=== PATIENT | male | born 1940 | race Caucasian/White ===

== ENCOUNTER 2017-09-25 13:16 | Inpatient (IN) ==
[2017-09-25] MEDS ORDERED: methylPREDNISolone 125 MG/2 ML VIAL IVP ONE (13:25)
[2017-09-25] MEDS ORDERED: Ipratropium/Albuterol Neb 3 ML IH ONE (13:25)
--- NOTE | 2017-09-25 13:32 | Emergency Department Note ---
Disposition Clinical Impression: Acute exacerbation of chronic obstructive airways disease Disposition: Admitted As Inpatient Condition: Fair Referrals: Ronnie Davidson,Rich Morales [Primary Care Provider] - Forms: ED Satisfaction Letter Time of Disposition: 15:01 SOB HPI - General Chief Complaint: ED Shortness of Breath/Dyspnea Stated Complaint: sob/pain in ribs w/cough and inspiration Time Seen by Provider: 09/25/17 13:25 Nursing Notes Reviewed: Yes Vital Signs Reviewed: Yes - History of Present Illness Patient is a 77-year-old male who presents to [facility] ED with a chief complaint of difficulty breathing. States his symptoms have been worsening over the last several days. States he does have a history of COPD on 3 L home oxygen. He usually does 3-4 breathing treatments daily. States he feels like he is getting pleurisy again since his discomfort is worse with deep breaths. Denies any history of blood clots or recent surgery. States he did have a recent lung biopsy done by Dr. Trotter several months ago. Denies any nausea, vomiting, fever. Has had some chills. No chest pain, abdominal pain, problems with urination or bowel movements. Pt Subjective Complaint: shortness of breath, pain with inspiration Onset (ago): day(s) Context: recent illness Severity: moderate Consistency/Duration: gradually worsening Improves with: nothing Worsens with: nothing Known history of: COPD Associated symptoms: Reports: cough, wheezing, sputum production. Denies: chest pain, fever Treatment prior to arrival: none Cough present: Yes Cough Description: Involuntary Cough Frequency: Intermittent Sputum production: Yes Sputum Amount: Moderate Sputum Color: Yellow - Related Data Home oxygen amount: 3 liters Home Medications Medication Instructions Recorded Confirmed Aspirin Enteric Coated [Aspirin EC] 81 mg PO DAILY 11/27/16 07/06/17 Glimepiride [Amaryl] 4 mg PO DAILY 11/27/16 07/06/17 Losartan [Cozaar] 25 mg PO DAILY 11/27/16 07/06/17 Metoprolol [Lopressor] 12.5 mg PO BID 11/27/16 07/06/17 Omeprazole [PriLOSEC] 40 mg PO DAILY 11/27/16 07/06/17 Pioglitazone [Actos] 30 mg PO 0800 11/27/16 07/06/17 Potassium Gluconate [Potassium] 99 mg PO DAILY 11/27/16 07/06/17 Tamsulosin [Flomax] 0.4 mg PO DAILY 11/27/16 07/06/17 metFORMIN [Glucophage] 1,000 mg PO BIDWM 11/27/16 07/06/17 Albuterol Neb [Proventil Neb] 2.5 mg IH Q4HR PRN 07/06/17 07/06/17 Albuterol Sulfate [Proair Hfa] 2 puff IH Q4H PRN 07/06/17 07/06/17 Ferrous Sulfate [Iron] 325 mg PO DAILY 07/06/17 07/06/17 Ipratropium Neb [Atrovent Neb] 0.5 mg IH Q8H PRN 07/06/17 07/06/17 Magnesium 250 mg PO DAILY 07/06/17 07/06/17 Tiotropium Br/Olodaterol HCl 2 puff IH DAILY 07/06/17 07/06/17 [Stiolto Respimat Inhal [place]] Allergies Allergy/AdvReac Type Severity Reaction Status Date / Time No Known Allergies Allergy Verified 09/25/17 13:26 All systems ED: reviewed and negative except as stated. Past Medical History - Past Medical History Attestation: Yes The following information was validated with the patient. Source: patient Medical history: Reports: COPD, diabetes, GERD, hypertension, other Surgical history: Reports: herniorrhaphy, orthopedic, other Psychiatric history: Reports: other - Social History Smoking Status: Current every day smoker Smokeless Tobacco Status: No Alcohol use: Reports: none Drug use: Reports: none Physical Exam - General Limitations: no limitations General appearance: alert, in no apparent distress - Head Head exam: atraumatic, normocephalic, normal inspection - Eye Eye exam: Present: EOMI - ENT ENT exam: normal exam, normal oropharynx, mucous membranes moist - Neck Neck exam: Present: normal inspection, full ROM, trachea midline - Chest Chest inspection: Present: normal inspection, symmetric chest wall rise - Respiratory Respiratory exam: Present: wheezes (diffusely b/l) - Cardiovascular Cardiovascular exam: Present: regular rate, normal rhythm, normal heart sounds - Abdominal Exam Abdominal exam: Present: soft, Non-Tender. Absent: tenderness, distention, guarding, rebound, rigidity - Extremities Exam Extremities exam: Present: normal inspection, full ROM. Absent: tenderness, pedal edema - Back Exam Back exam: Present: normal inspection, full ROM. Absent: tenderness - Neurological Exam Neurological exam: Present: alert, oriented X3 - Psychiatric Psychiatric exam: Present: normal affect, normal mood - Skin Skin exam: Present: warm, dry, intact, normal color Course Course Narrative: Patient seen and examined. Difficulty breathing. History of COPD. Upon examination, he is diffusely wheezy. Triple DuoNeb treatment along with Solu- Medrol ordered. Cardiopulmonary workup initiated. - Reevaluation(s) Reevaluation #1: Labwork does show a mildly elevated potassium of 5.2. No EKG related changes. chest x-ray unremarkable. Patient still very wheezy. I discussed results with family and the patient and they would like him to be admitted. He has had a lot of trouble getting around at home. We will admit for COPD exacerbation. I discussed with hospitalist Dr. Coleman who has accepted patient for admission. Time: 15:00 Vital Signs O2 Sat by Pulse Oximetry 98 09/25/17 13:27 Temperature 98.5 F 09/25/17 13:28 Pulse Rate 109 09/25/17 13:30 Respiratory Rate 20 09/25/17 13:46 Blood Pressure 146/77 09/25/17 13:30 O2 Sat by Pulse Oximetry 98 09/25/17 13:46 Oxygen Delivery Oxygen Delivery Nasal Cannula Shortness of Breath/Dyspnea - Medical Records Medical records reviewed: Yes I reviewed the patient's medical records. - Lab Data Lab results reviewed: Yes I reviewed the patient's lab results. Result diagrams: 09/25/17 13:40 09/25/17 13:40 Lab Results 09/25/17 09/25/17 09/25/17 Range/Units 13:40 13:40 13:40 WBC 7.0 (4.3-11.1) K/mcL RBC 4.45 (4.19-5.50) M/mcL Hgb 12.8 L (12.9-16.9) g/dL Hct 41.0 (37.5-50.1) % MCV 92.1 (83.0-100.0) fL MCH 28.8 (28.0-33.3) pg MCHC 31.2 L (31.6-35.5) g/dL RDW 13.6 (11.5-14.5) % Plt Count 299 (140-400) K/mcL MPV 9.5 (9.4-12.4) fL Immature Gran % 0.4 (0-4) % Seg Neutrophils % 73.3 % Lymphocytes % 14.6 % Monocytes % 8.0 % Eosinophils % 3.0 % Basophils % 0.7 % Neutrophils # 5.2 (1.6-8.9) K/mcL Lymphocytes # 1.0 (0.6-4.6) K/mcL Monocytes # 0.6 (0.0-1.3) K/mcL Eosinophils # 0.2 (0.0-0.6) K/mcL Basophils # 0.1 (0.0-0.2) K/mcL D-Dimer 336 (0-500) ng/mLFEU Sodium 139 (136-145) mEq/L Potassium 5.2 H (3.5-5.1) mEq/L Chloride 101 (98-107) mEq/L Carbon Dioxide 34 H (23-29) mEq/L BUN 13 (8-23) mg/dL Creatinine 0.64 L (0.70-1.30) mg/dL Est GFR ( Amer) > 60 (> 60) Est GFR (Non-Af Amer) > 60 (> 60) BUN/Creatinine Ratio 20 (6-26) Glucose 139 H (70-105) mg/dL Calculated Osmolality 290 (280-300) Lactic Acid (0.5-2.2) mmol/L Calcium 9.5 (8.6-10.3) mg/dL Troponin I < 0.03 (< 0.04) ng/mL B-Natriuretic Peptide (Less than 100) pg/mL 09/25/17 09/25/17 Range/Units 13:40 13:40 WBC (4.3-11.1) K/mcL RBC (4.19-5.50) M/mcL Hgb (12.9-16.9) g/dL Hct (37.5-50.1) % MCV (83.0-100.0) fL MCH (28.0-33.3) pg MCHC (31.6-35.5) g/dL RDW (11.5-14.5) % Plt Count (140-400) K/mcL MPV (9.4-12.4) fL Immature Gran % (0-4) % Seg Neutrophils % % Lymphocytes % % Monocytes % % Eosinophils % % Basophils % % Neutrophils # (1.6-8.9) K/mcL Lymphocytes # (0.6-4.6) K/mcL Monocytes # (0.0-1.3) K/mcL Eosinophils # (0.0-0.6) K/mcL Basophils # (0.0-0.2) K/mcL D-Dimer (0-500) ng/mLFEU Sodium (136-145) mEq/L Potassium (3.5-5.1) mEq/L Chloride (98-107) mEq/L Carbon Dioxide (23-29) mEq/L BUN (8-23) mg/dL Creatinine (0.70-1.30) mg/dL Est GFR ( Amer) (> 60) Est GFR (Non-Af Amer) (> 60) BUN/Creatinine Ratio (6-26) Glucose (70-105) mg/dL Calculated Osmolality (280-300) Lactic Acid 0.8 (0.5-2.2) mmol/L Calcium (8.6-10.3) mg/dL Troponin I (< 0.04) ng/mL B-Natriuretic Peptide 51 (Less than 100) pg/mL - Radiology Data Radiology results reviewed: Yes I reviewed the patient's radiology results. Chest X-Ray 09/25/17 13:25 IMPRESSION: 1. No acute findings in the chest. 2. No definite visualization of the hypermetabolic left upper lobe nodule seen on PET. 3. Emphysema. D/ / Micha Estrada MD / Micha Estrada MD Interpreting Provider: Micha Estrada MD - EKG Data EKG attestation: Yes I reviewed and interpreted this EKG. EKG results narrative: EKG done at 1351 shows sinus tachycardia with a rate of [address] elevation or depression. Normal axis.
--- NOTE | 2017-09-25 13:33 | Emergency Department Note ---
Disposition Clinical Impression: Acute exacerbation of chronic obstructive airways disease Disposition: Admitted As Inpatient Condition: Fair General Adult HPI - General Chief complaint: ED Shortness of Breath/Dyspnea Stated complaint: sob/pain in ribs w/cough and inspiration Time Seen by Provider: 09/25/17 13:25 Source: patient, EMS Limitations: no limitations Nursing Notes Reviewed: Yes Vital Signs Reviewed: Yes - History of Present Illness Pain Scale: 8 - Related Data Home Medications Medication Instructions Recorded Confirmed Aspirin Enteric Coated [Aspirin EC] 81 mg PO DAILY 11/27/16 09/25/17 Glimepiride [Amaryl] 4 mg PO DAILY 11/27/16 09/25/17 Losartan [Cozaar] 25 mg PO DAILY 11/27/16 09/25/17 Metoprolol [Lopressor] 12.5 mg PO BID 11/27/16 09/25/17 Omeprazole [PriLOSEC] 40 mg PO DAILY 11/27/16 09/25/17 Tamsulosin [Flomax] 0.4 mg PO DAILY 11/27/16 09/25/17 metFORMIN [Glucophage] 1,000 mg PO BIDWM 11/27/16 09/25/17 Albuterol Neb [Proventil Neb] 2.5 mg IH Q4HR PRN 07/06/17 09/25/17 Albuterol Sulfate [Proair Hfa] 2 puff IH Q4H PRN 07/06/17 09/25/17 Ipratropium Neb [Atrovent Neb] 0.5 mg IH Q8H PRN 07/06/17 09/25/17 Magnesium 250 mg PO DAILY 07/06/17 09/25/17 Tiotropium Br/Olodaterol HCl 2 puff IH DAILY 07/06/17 09/25/17 [Stiolto Respimat Inhal [place]] Pioglitazone HCl [Actos] 45 mg PO DAILY 09/25/17 09/25/17 PredniSONE [Betzaida] 5 mg PO Q48H 09/25/17 09/25/17 Allergies Allergy/AdvReac Type Severity Reaction Status Date / Time No Known Allergies Allergy Verified 09/25/17 15:34 Past Medical History - Past Medical History Medical history: Reports: COPD, diabetes, GERD, hypertension, other Surgical history: Reports: herniorrhaphy, orthopedic, other Psychiatric history: Reports: other - Social History Smoking Status: Current every day smoker Smokeless Tobacco Status: No Alcohol use: Reports: none Drug use: Reports: none Physical Exam - General Limitations: no limitations General appearance: alert Course Vital Signs O2 Sat by Pulse Oximetry 98 09/25/17 13:27 Temperature 98.5 F 09/25/17 13:28 Pulse Rate 109 09/25/17 13:30 Respiratory Rate 20 09/25/17 13:46 Blood Pressure 146/77 09/25/17 13:30 O2 Sat by Pulse Oximetry 98 09/25/17 13:46 Oxygen Delivery Oxygen Delivery Nasal Cannula Medical Decision Making - [facility] Narrative Medical decision making narrative: Chest X-Ray 09/25/17 13:25 IMPRESSION: 1. No acute findings in the chest. 2. No definite visualization of the hypermetabolic left upper lobe nodule seen on PET. 3. Emphysema. D/ / Micha Estrada MD / Micha Estrada MD Interpreting Provider: Micha Estrada MD 1430 hrs.: Patient is doing better. at like him admitted to the hospital. We will bring him into the hospital for acute exacerbation of COPD and bronchitis. - Lab Data Result diagrams: 09/25/17 13:40 09/25/17 13:40 Lab Results 09/25/17 09/25/17 09/25/17 Range/Units 13:40 13:40 13:40 WBC 7.0 (4.3-11.1) K/mcL RBC 4.45 (4.19-5.50) M/mcL Hgb 12.8 L (12.9-16.9) g/dL Hct 41.0 (37.5-50.1) % MCV 92.1 (83.0-100.0) fL MCH 28.8 (28.0-33.3) pg MCHC 31.2 L (31.6-35.5) g/dL RDW 13.6 (11.5-14.5) % Plt Count 299 (140-400) K/mcL MPV 9.5 (9.4-12.4) fL Immature Gran % 0.4 (0-4) % Seg Neutrophils % 73.3 % Lymphocytes % 14.6 % Monocytes % 8.0 % Eosinophils % 3.0 % Basophils % 0.7 % Neutrophils # 5.2 (1.6-8.9) K/mcL Lymphocytes # 1.0 (0.6-4.6) K/mcL Monocytes # 0.6 (0.0-1.3) K/mcL Eosinophils # 0.2 (0.0-0.6) K/mcL Basophils # 0.1 (0.0-0.2) K/mcL D-Dimer 336 (0-500) ng/mLFEU Sodium 139 (136-145) mEq/L Potassium 5.2 H (3.5-5.1) mEq/L Chloride 101 (98-107) mEq/L Carbon Dioxide 34 H (23-29) mEq/L BUN 13 (8-23) mg/dL Creatinine 0.64 L (0.70-1.30) mg/dL Est GFR ( Amer) > 60 (> 60) Est GFR (Non-Af Amer) > 60 (> 60) BUN/Creatinine Ratio 20 (6-26) Glucose 139 H (70-105) mg/dL Calculated Osmolality 290 (280-300) Lactic Acid (0.5-2.2) mmol/L Calcium 9.5 (8.6-10.3) mg/dL Troponin I < 0.03 (< 0.04) ng/mL B-Natriuretic Peptide (Less than 100) pg/mL 09/25/17 09/25/17 Range/Units 13:40 13:40 WBC (4.3-11.1) K/mcL RBC (4.19-5.50) M/mcL Hgb (12.9-16.9) g/dL Hct (37.5-50.1) % MCV (83.0-100.0) fL MCH (28.0-33.3) pg MCHC (31.6-35.5) g/dL RDW (11.5-14.5) % Plt Count (140-400) K/mcL MPV (9.4-12.4) fL Immature Gran % (0-4) % Seg Neutrophils % % Lymphocytes % % Monocytes % % Eosinophils % % Basophils % % Neutrophils # (1.6-8.9) K/mcL Lymphocytes # (0.6-4.6) K/mcL Monocytes # (0.0-1.3) K/mcL Eosinophils # (0.0-0.6) K/mcL Basophils # (0.0-0.2) K/mcL D-Dimer (0-500) ng/mLFEU Sodium (136-145) mEq/L Potassium (3.5-5.1) mEq/L Chloride (98-107) mEq/L Carbon Dioxide (23-29) mEq/L BUN (8-23) mg/dL Creatinine (0.70-1.30) mg/dL Est GFR ( Amer) (> 60) Est GFR (Non-Af Amer) (> 60) BUN/Creatinine Ratio (6-26) Glucose (70-105) mg/dL Calculated Osmolality (280-300) Lactic Acid 0.8 (0.5-2.2) mmol/L Calcium (8.6-10.3) mg/dL Troponin I (< 0.04) ng/mL B-Natriuretic Peptide 51 (Less than 100) pg/mL Attestation Statement - Attestation Attestation: This documentation is done with the assistance of Dragon dictation. Despite efforts made to ensure accuracy, there may be inaccuracies in special machine operator or spelling and typographical errors. I examined this patient and my medical decision-making was reviewed with the Resident Physician. I agree with the documented findings, disposition and treatment plan as described except to the extent set forth below. Patient was seen and evaluated on arrival with EMS and Dr. Castañeda, I agree with her evaluation and management plan, supervise care the patient to stay. Patient presents from home today with what he thinks is pleurisy right side chest pain. He said worse with movement deep respiration or cough. He studies had this before. He is a smoker, on 3 L oxygen at home. No workup on him and then reassess. He is in agreement with plan.
[2017-09-25 13:59] LABS: Basophils # 0.1 K/mcL (0.0-0.2); Basophils % 0.7 %; Eosinophils # 0.2 K/mcL (0.0-0.6); Hemoglobin 12.8 g/dL (12.9-16.9); Immature Granulocytes % 0.4 % (0-4); Lymphocytes % 14.6 %; Mean Corpuscular HGB Conc 31.2 g/dL (31.6-35.5); Mean Corpuscular Hemoglobin 28.8 pg (28.0-33.3); Mean Corpuscular Volume 92.1 fL (83.0-100.0); Mean Platelet Volume 9.5 fL (9.4-12.4); Monocytes # 0.6 K/mcL (0.0-1.3); Neutrophils # 5.2 K/mcL (1.6-8.9); Platelet Count 299 K/mcL (140-400); Red Blood Count 4.45 M/mcL (4.19-5.50); Red Cell Distribution Width 13.6 % (11.5-14.5); Segmented Neutrophils % 73.3 %
[2017-09-25 14:12] LABS: Troponin I < 0.03 ng/mL (< 0.04)
[2017-09-25 14:13] LABS: BUN/Creatinine Ratio 20 (6-26); Blood Urea Nitrogen 13 mg/dL (8-23); Calcium 9.5 mg/dL (8.6-10.3); Carbon Dioxide 34 mEq/L (23-29); Chloride 101 mEq/L (98-107); Glucose 139 mg/dL (70-105); Osmolality,Calculated 290 (280-300); Potassium 5.2 mEq/L (3.5-5.1); Sodium 139 mEq/L (136-145); eGFR For African Americans > 60 (> 60); eGFR For Non-African Americans > 60 (> 60)
[2017-09-25] MEDS ORDERED: Naloxone 0.4 MG/ML INJ IVP PRN (15:39)
[2017-09-25] MEDS ORDERED: Albuterol 2.5 MG/3 ML NEBULIZER IH PRN (15:46)
--- NOTE | 2017-09-25 16:00 | Internal Med History&Physical ---
<Green ValleyMary Jo Nano - Last Filed: 09/25/17 15:51> Date of Encounter: 09/25/17 Time of Encounter: 15:51 Internal Medicine - H&P: HPI Chief complaint: Right rib pain with cough and breaths Admitted From: Home Plans for Post Hospital Care: Home History of present illness: Mr. Bishop is a 77 year old male with history of GERD, DM, enlarged prostate, hypertension, COPD with 3L home oxygen use home, lung biopsy [address] Schmitz. The patient arrived to the ED with c/o right rib pain that worsens when lying on his right side, palpating the area, taking breaths and coughing. He indicated that he has a history of pleurisy and thought this could it again. The patient CXR showed: emphysema. The patient indicated that he has had some dyspnea and wheezing associated with this. The patient uses 3L o2 at home. D- dimer was 336. The patient denies fever,wbc count was 7.0. Will add levaquin 500 mg IV daily. BNP is 73 and trop was negative @ <0.03. Past Med Surg Social Fam HX - Past Medical History Medical history: COPD, diabetes, GERD, hypertension, other Additional medical history: chronic respiratory failure, chronic obstructive lung disease, peripheral vascular disease Psychiatric history: other - Past Surgical History Surgical History: herniorrhaphy, orthopedic, other Additional surgical history: 3 knee surgeries, nose surgery, gallbladder, collapsed lung x2, colonoscopy, right thoracosopy & thoracotomy, EGD, ERCP, Upper EUS,ERCP, Cariac cath, cystoscopy transurethral recetion prostate bipolar - Social History Smoking Status: Current every day smoker Smokeless Tobacco Status: No Alcohol use: none Drug use: none - Family History Mother Living Status: Internal Medicine - H&P: Meds Aspirin Enteric Coated [Aspirin EC] 81 mg PO DAILY 11/27/16 [History] Glimepiride [Amaryl] 4 mg PO DAILY 11/27/16 [History] Losartan [Cozaar] 25 mg PO DAILY 11/27/16 [History] Metoprolol [Lopressor] 12.5 mg PO BID 11/27/16 [History] Omeprazole [PriLOSEC] 40 mg PO DAILY 11/27/16 [History] Tamsulosin [Flomax] 0.4 mg PO DAILY 11/27/16 [History] metFORMIN [Glucophage] 1,000 mg PO BIDWM 11/27/16 [History] Albuterol Neb [Proventil Neb] 2.5 mg IH Q4HR PRN 07/06/17 [History] Albuterol Sulfate [Proair Hfa] 2 puff IH Q4H PRN 07/06/17 [History] Ipratropium Neb [Atrovent Neb] 0.5 mg IH Q8H PRN 07/06/17 [History] Magnesium 250 mg PO DAILY 07/06/17 [History] Tiotropium Br/Olodaterol HCl [Stiolto Respimat Inhal [place]] 2 puff IH DAILY 01/13 [History] Pioglitazone HCl [Actos] 45 mg PO DAILY 09/25/17 [History] PredniSONE [Betzaida] 5 mg PO Q48H 09/25/17 [History] 3 Allergy/AdvReac Type Severity Reaction Status Date / Time No Known Allergies Allergy Verified 09/25/17 15:34 All Systems PM: A 10-system review of systems was performed and is negative for pertinent findings except as documented above in the HPI. - Constitutional Constitutional: no chills, no fever(s), no night sweats - EENT Eyes: no change in vision, no discharge, no pain, no photophobia Ears: no ear discharge, no ear pain, no tinnitus Nose, mouth and throat: no dysphagia, no nasal discharge, no neck pain, no sore throat - Cardiovascular Cardiovascular ROS IM: dyspnea, no chest pain, no diaphoresis, no lightheadedness, no palpitations, no syncope - Respiratory Respiratory: dyspnea, wheezing, pain with cough, no cough, no excessive phlegm production - Gastrointestinal Gastrointestinal: no abdominal pain, no diarrhea, no hematemesis, no hematochezia, no melena, no nausea, no vomiting - Musculoskeletal Musculoskeletal ROS IM: myalgias (Right rib pain), no numbness, no tingling - Integumentary Integumentary IM: no rash, no unusual bruising - Neurological Neurological ROS: no confusion, no convulsions, no focal weakness, no numbness, no tingling, no tremor(s) - Hematologic/Lymphatic Hematologic/Lymphatic: no easy bruising - Constitutional Vitals: Temp Pulse Resp BP Pulse Ox 98.5 F 109 20 146/77 98 09/25/17 13:28 09/25/17 13:30 09/25/17 13:46 09/25/17 13:30 09/25/17 13:46 General appearance: Present: A&O X 3, answers questions appropriately - Head Head exam: Present: atraumatic, normocephalic - Eye Eye exam: Present: PERRL, conjuntiva pink, sclera anicteric Pupils: Present: PERRL - Neck Neck exam general surgery: Present: supple, trachea midline. Absent: lymphadenopathy - Respiratory Respiratory exam: Present: decreased breath sounds, wheezes. Absent: accessory muscle use, rales - Cardiovascular Cardiovascular exam: Present: RRR, +S1, +S2. Absent: diastolic murmur, gallop, rubs, systolic murmur - GI/Abdominal GI/Abdominal exam: Present: normal bowel sounds, soft, no peritoneal signs. Absent: distended, tenderness - Extremities Exam Extremities exam: Present: warm, radial pulses palpable and symmetrical. Absent : calf tenderness, cyanotic, pedal edema - Neurological Exam Neurological exam: Present: CN II-XII intact, oriented X3, no focal deficits. Absent: pronater drift, facial droop, speech deficit - Skin Skin exam: Present: dry, intact Internal Med - H&P Results - Labs CBC & Chem 7: 09/25/17 13:40 09/25/17 13:40 - Assessment and plan (1) Acute exacerbation of chronic obstructive airways disease Current Visit: Yes Status: Acute Assessment and plan: Increase oral steroid to 40 mg po daily-Home med was 5 mg po q48h Oxygen to keep sats gt 92% Bronchodilators q4h Oral levaquin 500 mg daily (2) Diabetes mellitus Current Visit: Yes Status: Acute Assessment and plan: Blood sugars are controlled Acuu checks ac/hs Continue home meds-Amaryl, metformin and actos Qualifiers: Diabetes mellitus type: type 2 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 insulin 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 (3) HTN (hypertension) Current Visit: Yes Status: Acute Assessment and plan: Bp is uncontrolled, likely related to pain to right rib Continue home medications-losartan and metoprolol Qualifiers: Hypertension type: essential hypertension Qualified Code(s): I10 - Essential (primary) hypertension - Time Spent With Patient Total time spent is greater than 50% in coordination of care (as documented) at patient's floor/unit and/or counseling patient: less than 15 minutes <Reymundo Coleman - Last Filed: 09/25/17 17:14> Date of Encounter: 09/25/17 Time of Encounter: 16:30 Internal Medicine - H&P: HPI History of present illness: Mr. Bishop is a 77 year old male All Systems PM: A 10-system review of systems was performed and is negative for pertinent findings except as documented above in the HPI. - Constitutional Vitals: Temp Pulse Resp BP Pulse Ox 98.5 F 118 20 150/74 93 09/25/17 13:28 09/25/17 16:30 09/25/17 16:30 09/25/17 16:30 09/25/17 16:30 Internal Med - H&P Results - Labs CBC & Chem 7: 09/25/17 13:40 09/25/17 13:40 - Attending Attestation I examined this patient and my medical decision-making was reviewed with the Nurse Practitioner, Mary Jo Taylor. I agree with the documented findings, disposition and treatment plan as described with any changes as documented below. 77-year-old male patient with history of COPD who is a chronic smoker and continues to smoke, chronic respiratory failure on 3 L home oxygen presented to the ER with complaints of shortness of breath and right-sided lower chest pain. Pain gets worse with deep breaths and cough. He has also been having cough without much sputum production. He has also been having some wheezing. When he first arrived to the ER, he was having bilateral wheezing and so received breathing treatments. While this did improve his breathing, he continues to have right-sided chest pain. On examination, patient is awake and alert. He does have right-sided lower chest wall tenderness over his lower ribs. Heart sounds are normal. He does have bilateral wheezing. Chest x-ray shows emphysema. Acute COPD exacerbation with pleurisy/right-sided chest pain: We will treat with bronchodilators, systemic steroids. O2 supplementation. No signs of pneumonia but we will treat him medically for bronchitis with Levaquin. Right- sided chest pain is mostly pleuritic in nature. Most likely musculoskeletal. Treat symptomatically. Chronic tobacco abuse: Nicotine patch if needed. Diabetes mellitus type 2: Monitor blood sugars. Sliding scale insulin. Essential hypertension: Continue Cozaar. - Time Spent With Patient Total time spent is greater than 50% in coordination of care (as documented) at patient's floor/unit and/or counseling patient:
[2017-09-25] MEDS ORDERED: *HR* Metformin 500 MG TABLET PO SCH (17:00)
[2017-09-25] MEDS ORDERED: Acetaminophen 325 MG TABLET PO PRN (17:15)
[2017-09-25] MEDS ORDERED: D5% in Water 1,000 ML IVC PRN (17:15)
[2017-09-25] MEDS ORDERED: *HR* Dextrose 50 % in Water (Syg) 50 ML SYRINGE IVP PRN (17:15)
[2017-09-25] MEDS ORDERED: Dextrose Gel 15 GM/37.5 ML TUBE PO PRN ×2 (17:15)
[2017-09-25] MEDS: *HR* HYDROcodone/Acet 5/325 mg TABLET PO PRN (17:47)
[2017-09-25] MEDS: levoFLOXacin 500 MG TABLET PO SCH (17:47)
[2017-09-25] MEDS: *HR* Heparin 5,000 UNIT/ML VIAL SQ SCH (17:47)
[2017-09-25] MEDS: Ipratropium/Albuterol Neb 3 ML IH SCH ×3 (18:22→23:23)
[2017-09-25] MEDS: Insulin LISPRO 300 UNITS/3 ML VIAL SQ SCH (20:52)
[2017-09-26] MEDS: *HR* Heparin 5,000 UNIT/ML VIAL SQ SCH ×2 (06:24→17:14)
[2017-09-26 06:34] LABS: Basophils % 0.2 %; Hematocrit 36.3 % (37.5-50.1); Hemoglobin 11.5 g/dL (12.9-16.9); Immature Granulocytes % 0.7 % (0-4); Lymphocytes # 0.7 K/mcL (0.6-4.6); Mean Corpuscular HGB Conc 31.7 g/dL (31.6-35.5); Mean Corpuscular Volume 91.4 fL (83.0-100.0); Mean Platelet Volume 9.4 fL (9.4-12.4); Monocytes # 0.6 K/mcL (0.0-1.3); Neutrophils # 4.8 K/mcL (1.6-8.9); Platelet Count 286 K/mcL (140-400); Red Blood Count 3.97 M/mcL (4.19-5.50); Red Cell Distribution Width 13.2 % (11.5-14.5); Segmented Neutrophils % 79.1 %
[2017-09-26] MEDS: Ipratropium/Albuterol Neb 3 ML IH SCH ×6 (06:34→23:47)
[2017-09-26 06:55] LABS: BUN/Creatinine Ratio 27 (6-26); Blood Urea Nitrogen 22 mg/dL (8-23); Calcium 8.7 mg/dL (8.6-10.3); Carbon Dioxide 35 mEq/L (23-29); Chloride 99 mEq/L (98-107); Glucose 228 mg/dL (70-105); Osmolality,Calculated 293 (280-300); Potassium 5.3 mEq/L (3.5-5.1); Sodium 136 mEq/L (136-145); eGFR For African Americans > 60 (> 60); eGFR For Non-African Americans > 60 (> 60)
[2017-09-26 06:56] LABS: Troponin I < 0.03 ng/mL (< 0.04)
[2017-09-26] MEDS: Aspirin Enteric Coated 81 MG Tablet PO SCH (08:08)
[2017-09-26] MEDS: *HR* HYDROcodone/Acet 5/325 mg TABLET PO PRN ×2 (08:08→17:17)
[2017-09-26] MEDS: levoFLOXacin 500 MG TABLET PO SCH (08:08)
[2017-09-26] MEDS: Magnesium Oxide 400 MG TABLET PO SCH (08:08)
[2017-09-26] MEDS: predniSONE 20 MG TABLET PO SCH (08:08)
[2017-09-26] MEDS: Insulin LISPRO 300 UNITS/3 ML VIAL SQ SCH ×4 (08:13→20:47)
[2017-09-26] MEDS ORDERED: *HR* Glimepiride 4 MG TABLET PO SCH (09:00)
[2017-09-26] MEDS ORDERED: (Tiotropium Br/Olodaterol Hcl [Stiolto Respimat Inhal) IH SCH (09:00)
[2017-09-26] MEDS ORDERED: *HR* Pioglitazone 45 MG TABLET PO SCH (09:00)
--- NOTE | 2017-09-26 12:10 | Internal Med Progress Note ---
Date of Encounter: 09/26/17 Time of Encounter: 12:08 - Assessment and plan (1) Hyperkalemia Current Visit: Yes Status: Acute Assessment and plan: Hold losartan K 5.3 give kayexalate recheck song conley (2) Acute exacerbation of chronic obstructive airways disease Current Visit: Yes Status: Acute Assessment and plan: continue current care (3) Diabetes mellitus Current Visit: Yes Status: Chronic Assessment and plan: FS ACHS ADA diet Insulin Qualifiers: Diabetes mellitus type: type 2 Diabetes mellitus group home insulin use: unspecified group home insulin 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 (4) HTN (hypertension) Current Visit: Yes Status: Chronic Assessment and plan: controlled on current meds, continue same Qualifiers: Hypertension type: essential hypertension Qualified Code(s): I10 - Essential (primary) hypertension (5) Pleurisy Current Visit: Yes Status: Acute Assessment and plan: pain control. CXR is without infiltrates - Time Spent With Patient Total time spent is greater than 50% in coordination of care (as documented) at patient's floor/unit and/or counseling patient: - Subjective Interval history: Seen and examined Reports there has been no changes in his R sided pleuritic pain Denies any other complains being managed for COPD Hyperkalemia on labs today - Constitutional Vitals: Temp Pulse Resp BP Pulse Ox 97.6 F 79 16 125/72 94 09/26/17 11:55 09/26/17 11:55 09/26/17 11:55 09/26/17 11:55 09/26/17 11:55 General appearance: Present: A&O X 3, pleasant, no acute distress, answers questions appropriately - Head Head exam: Present: atraumatic, normocephalic - Eye Eye exam: Present: PERRL, conjuntiva pink, sclera anicteric Pupils: Present: PERRL - Neck Neck exam general surgery: Present: supple, trachea midline. Absent: lymphadenopathy - Respiratory Respiratory exam: Present: wheezes. Absent: rales, rhonchi, stridor, tachypnea - Cardiovascular Cardiovascular exam: Present: RRR, +S1, +S2. Absent: diastolic murmur, gallop, rubs, systolic murmur - GI/Abdominal GI/Abdominal exam: Present: normal bowel sounds, soft, no peritoneal signs. Absent: distended, tenderness - Extremities Exam Extremities exam: Present: warm, radial pulses palpable and symmetrical. Absent : calf tenderness, cyanotic, pedal edema - Neurological Exam Neurological exam: Present: alert, CN II-XII intact, oriented X3, no focal deficits. Absent: pronater drift, facial droop, speech deficit - Skin Skin exam: Present: dry, intact Internal Medicine: Result - Labs CBC & Chem 7: 09/26/17 06:16 09/26/17 06:16 Labs: Short CBC 09/26/17 Range/Units 06:16 WBC 6.1 (4.3-11.1) K/mcL Hgb 11.5 L (12.9-16.9) g/dL Hct 36.3 L (37.5-50.1) % Plt Count 286 (140-400) K/mcL Neutrophils # 4.8 (1.6-8.9) K/mcL BMP 09/26/17 06:16 Sodium 136 Potassium 5.3 H Chloride 99 Carbon Dioxide 35 H BUN 22 Creatinine 0.81 Glucose 228 H Calcium 8.7 Cardiac Enzymes 09/26/17 Range/Units 06:16 Troponin I < 0.03 (< 0.04) ng/mL - ABG Interpretation ABG results: PT/INR, D-dimer D-Dimer 336 ng/mLFEU (0-500) 09/25/17 13:40 Consult Discharge Plan - Plan Referrals: Rich Trujillo D.O. [Primary Care Provider] -
[2017-09-27] MEDS: Ipratropium/Albuterol Neb 3 ML IH SCH ×4 (04:13→15:29)
[2017-09-27 05:25] LABS: Basophils % 0.1 %; Eosinophils % 0.4 %; Hematocrit 34.9 % (37.5-50.1); Immature Granulocytes % 0.6 % (0-4); Lymphocytes # 1.4 K/mcL (0.6-4.6); Lymphocytes % 17.2 %; Mean Corpuscular HGB Conc 31.5 g/dL (31.6-35.5); Mean Corpuscular Hemoglobin 28.5 pg (28.0-33.3); Mean Corpuscular Volume 90.4 fL (83.0-100.0); Mean Platelet Volume 9.5 fL (9.4-12.4); Monocytes # 0.7 K/mcL (0.0-1.3); Monocytes % 8.3 %; Platelet Count 252 K/mcL (140-400); Red Blood Count 3.86 M/mcL (4.19-5.50); Red Cell Distribution Width 13.2 % (11.5-14.5); Segmented Neutrophils % 73.4 %
[2017-09-27] MEDS: *HR* Heparin 5,000 UNIT/ML VIAL SQ SCH (05:34)
[2017-09-27 05:41] LABS: BUN/Creatinine Ratio 35 (6-26); Blood Urea Nitrogen 23 mg/dL (8-23); Calcium 8.7 mg/dL (8.6-10.3); Carbon Dioxide 37 mEq/L (23-29); Chloride 97 mEq/L (98-107); Glucose 181 mg/dL (70-105); Osmolality,Calculated 292 (280-300); Potassium 3.6 mEq/L (3.5-5.1); Sodium 137 mEq/L (136-145); eGFR For African Americans > 60 (> 60); eGFR For Non-African Americans > 60 (> 60)
[2017-09-27] MEDS: *HR* HYDROcodone/Acet 5/325 mg TABLET PO PRN ×2 (05:49→12:33)
[2017-09-27] MEDS: Aspirin Enteric Coated 81 MG Tablet PO SCH (08:47)
[2017-09-27] MEDS: Insulin LISPRO 300 UNITS/3 ML VIAL SQ SCH ×3 (08:47→17:49)
[2017-09-27] MEDS: levoFLOXacin 500 MG TABLET PO SCH (08:47)
[2017-09-27] MEDS: Magnesium Oxide 400 MG TABLET PO SCH (08:48)
[2017-09-27] MEDS: predniSONE 20 MG TABLET PO SCH (08:48)
--- NOTE | 2017-09-27 11:03 | Discharge Summary ---
- NOTES TO OUTPATIENT PROVIDER Notes to Outpatient Provider: Follow-up with pulmonology, follow-up with primary care physician, recommend repeat Chem to assess K level. 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 Bishop is a 77 year old male with history of GERD, DM, enlarged prostate, hypertension, COPD with 3L home oxygen use home, lung biopsy [address] Schmitz. The patient presented to the ED with c/o right rib pain that worsens when lying on his right side, palpating the area, taking breaths and coughing. He indicated that he has a history of pleurisy and thought this could it again. The patient CXR showed: emphysema. The patient indicated that he has had some dyspnea and wheezing associated with this. The patient uses 3L o2 at home. D- dimer was 336. The patient denies fever,wbc count was 7.0. He was placed on observation for management of COPDE The patient's O2 requirement remained at his baseline Due to continuos complains on R sided pleuritic chest pain, we did a Chest CT without contrast which showed some stable CONSUELO nodule, as well as subtle areas of lucency which are read as likely osteopenia and herbie underlygin fracture or lytic lesion. The patient has no other complains, he is discharged home on acetaminophen and with appropriate folow up with pulmonology and PCP The patient had one episode of hyperkalemia which resolved with holding his home dose of ARB He is discharged home with prednisone for 2 more days for COPDE as well as levaquin for 2 more days, as well as few pills of norco for pain control Losartan has been decreased to 12.5mg daily from 25mg daily. 2 mins spent on tobacco cessation counselling Plan of care discussed, verbalized understanding Discharge discussed with: patient, nurse Time spent discussing smoking cessation with patient: 3 to 10 minutes - Time Spent with Patient Total time spent providing and/or coordinating discharge services: Less than 30 minutes - Discharge Medications Prescriptions: HYDROcodone/Acet 5/325 mg [[place] 5-325 mg] 1 tab PO Q6HR PRN 4 Days #8 tablet PRN Reason: Moderate Pain levoFLOXacin [Levaquin] 500 mg PO DAILY #2 tablet Losartan [Cozaar] 12.5 mg PO DAILY #30 tablet Home Medications: Aspirin Enteric Coated [Aspirin EC] 81 mg PO DAILY 11/27/16 [History] Glimepiride [Amaryl] 4 mg PO DAILY 11/27/16 [History] Metoprolol [Lopressor] 12.5 mg PO BID 11/27/16 [History] Omeprazole [PriLOSEC] 40 mg PO DAILY 11/27/16 [History] Tamsulosin [Flomax] 0.4 mg PO DAILY 11/27/16 [History] metFORMIN [Glucophage] 1,000 mg PO BIDWM 11/27/16 [History] Albuterol Neb [Proventil Neb] 2.5 mg IH Q4HR PRN 07/06/17 [History] Albuterol Sulfate [Proair Hfa] 2 puff IH Q4H PRN 07/06/17 [History] Ipratropium Neb [Atrovent Neb] 0.5 mg IH Q8H PRN 07/06/17 [History] Magnesium 250 mg PO DAILY 07/06/17 [History] Tiotropium Br/Olodaterol HCl [Stiolto Respimat Inhal [place]] 2 puff IH DAILY 01/13 [History] Pioglitazone HCl [Actos] 45 mg PO DAILY 09/25/17 [History] PredniSONE [Betzaida] 5 mg PO Q48H 09/25/17 [History] HYDROcodone/Acet 5/325 mg [[place] 5-325 mg] 1 tab PO Q6HR PRN 4 Days #8 tablet [Rx] Losartan [Cozaar] 12.5 mg PO DAILY #30 tablet 09/27/17 [Rx] levoFLOXacin [Levaquin] 500 mg PO DAILY #2 tablet 09/27/17 [Rx] Allergies/Adverse Reactions: 3 Allergy/AdvReac Type Severity Reaction Status Date / Time No Known Allergies Allergy Verified 09/25/17 15:34 Date of admission: 09/25/17 15:06 Primary care physician: Rich Trujillo D.O. Discharging clinician: Dino Jerry Anticipated date of discharge: 09/27/17 - Constitutional Vitals: Temp Pulse Resp BP Pulse Ox 98.0 F 72 18 128/71 96 09/27/17 07:36 09/27/17 07:36 09/27/17 07:38 09/27/17 07:36 09/27/17 07:38 General appearance: Present: A&O X 3, pleasant, no acute distress, answers questions appropriately - Head Head exam: Present: atraumatic, normocephalic - Eye Eye exam: Present: PERRL, conjuntiva pink, sclera anicteric Pupils: Present: PERRL - Neck Neck exam general surgery: Present: supple, trachea midline. Absent: lymphadenopathy - Respiratory Respiratory exam: Present: CTAB. Absent: accessory muscle use, rales, rhonchi, wheezes - Cardiovascular Cardiovascular exam: Present: RRR, +S1, +S2. Absent: diastolic murmur, gallop, rubs, systolic murmur - GI/Abdominal GI/Abdominal exam: Present: normal bowel sounds, soft, no peritoneal signs. Absent: distended, tenderness - Extremities Exam Extremities exam: Present: warm, radial pulses palpable and symmetrical. Absent : calf tenderness, cyanotic, pedal edema - Neurological Exam Neurological exam: Present: alert, CN II-XII intact, oriented X3, no focal deficits. Absent: pronater drift, facial droop, speech deficit - Skin Skin exam: Present: dry, intact - Patient Status Disposition: Home, Self-Care Condition: Good Functional capacity at discharge: independent ambulation Overall status at discharge: patient is progressing back to baseline - Discharge Instructions Follow Up With: Rich Trujillo D.O. [Primary Care Provider] - 10/01/17 1:00 pm - Diet and Activity Activity: resume usual activities as tolerated Diet: low salt diet
[2017-09-27 12:14] VITALS: BP 137/83
--- NOTE | 2017-09-27 18:03 | Electrocardiograph Report ---
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
== END 2017-09-27 18:17 | disposition home or self-care (01) | DRG 191 ==
LOC: EMEROO 13:16 → 2ANU 13:16 → SUATTDRO 15:06 → 2ANU 17:00
PROVIDERS: ADMIT Internal Medicine; ATTEND Internal Medicine

== ENCOUNTER 2017-11-29 02:13 | Inpatient (IN) ==
[2017-11-29] MEDS ORDERED: methylPREDNISolone 125 MG/2 ML VIAL IVP ONE (02:48)
[2017-11-29] MEDS ORDERED: Ipratropium/Albuterol Neb 3 ML IH ONE (02:48)
[2017-11-29] MEDS ORDERED: 0.9 % Sodium Chloride 1,000 ML IVC ONE (02:48)
--- NOTE | 2017-11-29 02:51 | Emergency Department Note ---
Disposition Clinical Impression: COPD exacerbation, Tobacco abuse Disposition: Admitted As Inpatient Condition: Fair Time of Disposition: 05:00 SOB HPI - General Chief Complaint: ED Shortness of Breath/Dyspnea Stated Complaint: MISA Time Seen by Provider: 11/29/17 02:39 Source: patient Mode of arrival: ambulatory Limitations: no limitations Nursing Notes Reviewed: Yes Vital Signs Reviewed: Yes - History of Present Illness 77-year-old male with history of hypertension, COPD oxygen dependent presents for evaluation of dyspnea. Patient states symptom onset has been over the past 2-3 days. Notes worsening dyspnea. Patient states he does have albuterol inhaler at home but has been using that more frequently. Since the possible use his inhaler every couple hours. Patient also has a new diagnosis of possible left lung cancer. Patient is not on any type of chemotherapy and is currently being evaluated by his primary care doctor. Patient denies any fevers but does note a productive yellow sputum. Denies any chest pain. Denies any nausea vomiting or diaphoresis. Denies any abdominal pain. Patient states that he is on typically 3 L nasal cannula at home. States that he has been admitted for his lungs in the past. Notes that he has been admitted over the past 3 months. - Related Data Home Medications Medication Instructions Recorded Confirmed Aspirin Enteric Coated [Aspirin EC] 81 mg PO DAILY 11/27/16 10/21/17 Glimepiride [Amaryl] 4 mg PO DAILY 11/27/16 10/21/17 Metoprolol [Lopressor] 12.5 mg PO BID 11/27/16 10/21/17 Omeprazole [PriLOSEC] 40 mg PO DAILY 11/27/16 10/21/17 Tamsulosin [Flomax] 0.4 mg PO DAILY 11/27/16 10/21/17 metFORMIN [Glucophage] 1,000 mg PO BIDWM 11/27/16 10/21/17 Albuterol Neb [Proventil Neb] 2.5 mg IH Q4HR PRN 07/06/17 10/21/17 Albuterol Sulfate [Proair Hfa] 2 puff IH Q4H PRN 07/06/17 10/21/17 Ipratropium Neb [Atrovent Neb] 0.5 mg IH Q8H PRN 07/06/17 10/21/17 Magnesium 250 mg PO DAILY 07/06/17 10/21/17 Tiotropium Br/Olodaterol HCl 2 puff IH DAILY 07/06/17 10/21/17 [Stiolto Respimat Inhal [place]] Pioglitazone HCl [Actos] 45 mg PO DAILY 09/25/17 10/21/17 PredniSONE [Betzaida] 5 mg PO Q48H 09/25/17 10/21/17 Previous Rx's Medication Instructions Recorded HYDROcodone/Acet 5/325 mg [[place] 1 tab PO Q6HR PRN 4 Days #8 tablet 09/27/17 5-325 mg] Losartan [Cozaar] 12.5 mg PO DAILY #30 tablet 09/27/17 levoFLOXacin [Levaquin] 500 mg PO DAILY #2 tablet 09/27/17 Allergies Allergy/AdvReac Type Severity Reaction Status Date / Time No Known Allergies Allergy Verified 09/25/17 15:34 All systems ED: reviewed and negative except as stated. Constitutional: Denies: fever Cardiovascular: Denies: chest pain Respiratory: Reports: cough, dyspnea, sputum production Gastrointestinal: Denies: abdominal pain, nausea, vomiting Past Medical History - Past Medical History Source: patient Medical history: Reports: COPD, diabetes, GERD, hypertension, other Surgical history: Reports: herniorrhaphy, orthopedic, other Psychiatric history: Reports: other - Social History Smoking Status: Current every day smoker Smokeless Tobacco Status: No Alcohol use: Reports: none Drug use: Reports: none Physical Exam - General Limitations: no limitations General appearance: alert, in no apparent distress, cachectic - Head Head exam: atraumatic, normocephalic, normal inspection - Eye Eye exam: Present: normal appearance - ENT ENT exam: normal exam, mucous membranes moist - Neck Neck exam: Present: normal inspection - Chest Chest inspection: Present: normal inspection, symmetric chest wall rise - Respiratory Respiratory exam: Present: wheezes (bibasilar expiratory wheeze. Otherwise diffusely diminished.), accessory muscle use. Absent: respiratory distress - Cardiovascular Cardiovascular exam: Present: normal rhythm, tachycardia. Absent: systolic murmur - Abdominal Exam Abdominal exam: Present: soft, Non-Tender - Extremities Exam Extremities exam: Present: normal inspection. Absent: pedal edema - Expanded Lower Extremity Exam Neurovascular/Tendon exam: Present: normal capillary refill - Back Exam Back exam: Present: normal inspection - Neurological Exam Neurological exam: Present: alert, oriented X3, CN II-XII intact - Skin Skin exam: Present: warm, dry, intact, normal color Course Course Narrative: Patient seen and examined. Patient does have increased work of breathing. Patient does have increased nebs at home. Possible new diagnosis of lung cancer. At this point the patient be treated as a COPD exacerbation. Chest x- ray, nebs and steroids. At this juncture difficult to determine if this is related to a COPD exacerbation or multifactorial setting of lung malignancy. Patient has no pleuritic chest pain which would prompt CT scan of the chest. Disposition likely admission. - Reevaluation(s) Reevaluation #1: Patient seen and examined. Patient continues to have scattered wheeze. Will reduce the patient's aerosols. Patient states that he would not want to be intubated at this point. Patient breathing does appear to have improved. Time: 03:49 Vital Signs Temperature 98.1 F 11/29/17 02:18 Pulse Rate 101 11/29/17 02:18 Respiratory Rate 20 11/29/17 02:18 Blood Pressure 144/83 11/29/17 02:18 O2 Sat by Pulse Oximetry 94 11/29/17 02:18 Temperature 98.1 F 11/29/17 02:18 Pulse Rate 114 11/29/17 04:19 Respiratory Rate 20 11/29/17 04:19 Blood Pressure 158/84 11/29/17 04:19 O2 Sat by Pulse Oximetry 100 11/29/17 04:19 Oxygen Delivery Oxygen Delivery Aerosol Mask Shortness of Breath/Dyspnea - [facility] Narrative Medical decision making narrative: Patient presents for concerns of dyspnea. On exam the patient does have increased work of breathing. Patient does meet criteria for exacerbation of COPD. Productive sputum. Antibiotics were given. Patient lactate was normal. Negative troponin. Patient also has a newly diagnosed likely lung malignancy. This is possibly related the patient's dyspnea. On exam the patient does not appear to have any pleuritic chest pain component. CT angios of the chest was not obtained as PE is less likely given the patient's explained dyspnea from his COPD. Patient was treated with steroids as well as aerosols. Patient would likely need aggressive aerosols and antibiotics to ensure symptom resolution. - Lab Data Lab results reviewed: Yes I reviewed the patient's lab results. Result diagrams: 11/29/17 02:58 11/29/17 02:58 Lab Results 11/29/17 11/29/17 11/29/17 Range/Units 02:58 02:58 02:58 WBC 11.2 H (4.3-11.1) K/mcL RBC 4.36 (4.19-5.50) M/mcL Hgb 12.3 L (12.9-16.9) g/dL Hct 39.5 (37.5-50.1) % MCV 90.6 (83.0-100.0) fL MCH 28.2 (28.0-33.3) pg MCHC 31.1 L (31.6-35.5) g/dL RDW 14.6 H (11.5-14.5) % Plt Count 358 (140-400) K/mcL MPV 9.3 L (9.4-12.4) fL Immature Gran % 0.5 (0-4) % Seg Neutrophils % 76.7 % Lymphocytes % 12.0 % Monocytes % 6.3 % Eosinophils % 4.0 % Basophils % 0.5 % Neutrophils # 8.6 (1.6-8.9) K/mcL Lymphocytes # 1.3 (0.6-4.6) K/mcL Monocytes # 0.7 (0.0-1.3) K/mcL Eosinophils # 0.5 (0.0-0.6) K/mcL Basophils # 0.1 (0.0-0.2) K/mcL Sodium 138 (136-145) mEq/L Potassium 4.5 (3.5-5.1) mEq/L Chloride 101 (98-107) mEq/L Carbon Dioxide 33 H (23-29) mEq/L BUN 22 (8-23) mg/dL Creatinine 0.69 L (0.70-1.30) mg/dL Est GFR ( Amer) > 60 (> 60) Est GFR (Non-Af Amer) > 60 (> 60) BUN/Creatinine Ratio 32 H (6-26) Glucose 180 H (70-105) mg/dL Calculated Osmolality 294 (280-300) Lactic Acid (0.5-2.2) mmol/L Calcium 9.3 (8.6-10.3) mg/dL Troponin I < 0.03 (< 0.04) ng/mL B-Natriuretic Peptide 76 (Less than 100) pg/mL 11/29/17 Range/Units 03:06 WBC (4.3-11.1) K/mcL RBC (4.19-5.50) M/mcL Hgb (12.9-16.9) g/dL Hct (37.5-50.1) % MCV (83.0-100.0) fL MCH (28.0-33.3) pg MCHC (31.6-35.5) g/dL RDW (11.5-14.5) % Plt Count (140-400) K/mcL MPV (9.4-12.4) fL Immature Gran % (0-4) % Seg Neutrophils % % Lymphocytes % % Monocytes % % Eosinophils % % Basophils % % Neutrophils # (1.6-8.9) K/mcL Lymphocytes # (0.6-4.6) K/mcL Monocytes # (0.0-1.3) K/mcL Eosinophils # (0.0-0.6) K/mcL Basophils # (0.0-0.2) K/mcL Sodium (136-145) mEq/L Potassium (3.5-5.1) mEq/L Chloride (98-107) mEq/L Carbon Dioxide (23-29) mEq/L BUN (8-23) mg/dL Creatinine (0.70-1.30) mg/dL Est GFR ( Amer) (> 60) Est GFR (Non-Af Amer) (> 60) BUN/Creatinine Ratio (6-26) Glucose (70-105) mg/dL Calculated Osmolality (280-300) Lactic Acid 0.8 (0.5-2.2) mmol/L Calcium (8.6-10.3) mg/dL Troponin I (< 0.04) ng/mL B-Natriuretic Peptide (Less than 100) pg/mL - Radiology Data Radiology results reviewed: Yes I reviewed the patient's radiology results. - EKG Data EKG attestation: Yes I reviewed and interpreted this EKG. EKG shows normal: Reports: sinus rhythm Rate: Reports: normal Rhythm: Reports: NSR [place]/QRS: Reports: normal P waves: Reports: LAE T wave inversions noted in: Reports: aVR Interpretation: Reports: no acute changes, unchanged when compared to prior tracing (date), nonspecific ST-T wave changes S.B.A.R. - S.B.A.R. Situation: Demographics Background: Presenting Complaint Assessment: Vital Signs, Course and respsone to treatment, Patient/Family Expectation Recommendation: Barrier(s) to disposition, Recommendation based on pending studies, treatments, or consults Jeffrey Report Given to: Dr. Joao Murphy Repor Time: 03:50
[2017-11-29 03:14] LABS: Basophils # 0.1 K/mcL (0.0-0.2); Basophils % 0.5 %; Eosinophils # 0.5 K/mcL (0.0-0.6); Hematocrit 39.5 % (37.5-50.1); Hemoglobin 12.3 g/dL (12.9-16.9); Immature Granulocytes % 0.5 % (0-4); Lymphocytes # 1.3 K/mcL (0.6-4.6); Mean Corpuscular HGB Conc 31.1 g/dL (31.6-35.5); Mean Corpuscular Hemoglobin 28.2 pg (28.0-33.3); Mean Corpuscular Volume 90.6 fL (83.0-100.0); Mean Platelet Volume 9.3 fL (9.4-12.4); Monocytes # 0.7 K/mcL (0.0-1.3); Monocytes % 6.3 %; Neutrophils # 8.6 K/mcL (1.6-8.9); Platelet Count 358 K/mcL (140-400); Red Blood Count 4.36 M/mcL (4.19-5.50); Red Cell Distribution Width 14.6 % (11.5-14.5); Segmented Neutrophils % 76.7 %
[2017-11-29 03:31] LABS: BUN/Creatinine Ratio 32 (6-26); Blood Urea Nitrogen 22 mg/dL (8-23); Calcium 9.3 mg/dL (8.6-10.3); Carbon Dioxide 33 mEq/L (23-29); Chloride 101 mEq/L (98-107); Glucose 180 mg/dL (70-105); Osmolality,Calculated 294 (280-300); Potassium 4.5 mEq/L (3.5-5.1); Sodium 138 mEq/L (136-145); Troponin I < 0.03 ng/mL (< 0.04); eGFR For Non-African Americans > 60 (> 60)
[2017-11-29] MEDS ORDERED: cefTRIAXone 1,000 MG in Water for inj. (sterile) 20 ML 10 ML IVP ONE (03:43)
[2017-11-29] MEDS ORDERED: Azithromycin 500 MG in D5% in Water 250 ML IVPB ONE (03:43)
[2017-11-29] MEDS ORDERED: Albuterol 2.5 MG/3 ML NEBULIZER IH ONE (03:48)
[2017-11-29] MEDS ORDERED: *HR* HYDROcodone/Acet 5/325 mg TABLET PO PRN (04:16)
[2017-11-29] MEDS ORDERED: Dextrose Gel 15 GM/37.5 ML TUBE PO PRN ×2 (04:18)
--- NOTE | 2017-11-29 05:15 | Internal Med History&Physical ---
Date of Encounter: 11/29/17 Time of Encounter: 05:00 Internal Medicine - H&P: HPI Chief complaint: SOB Admitted From: Home Plans for Post Hospital Care: Home History of present illness: Mr. Bishop is a 77 year old male with a history of hypertension, diabetes, longstanding and ongoing tobacco abuse with resultant COPD who has oxygen at home for most of the day presenting now for increasing dyspnea over the past 3 days, wheezing unresponsive to home therapy and chills. Of note the patient is also being evaluated for a new suspected diagnosis of left lung cancer. He admits to increasingly productive cough with yellow sputum but denies chest pain and fever. No associated nausea, vomiting or diaphoresis. He reports using 3L O2 at home. He has been admitted on numerous occasions for this same problem however he continues to smoke and has done so for 65 years. In the ER he received triple nebulizer therapy, abx and steroids and is admitted for further care due to minimal response to therapy. Past Med Surg Social Fam HX - Past Medical History Medical history: COPD, diabetes, GERD, hypertension, other Additional medical history: chronic respiratory failure, chronic obstructive lung disease, peripheral vascular disease Psychiatric history: other - Past Surgical History Surgical History: herniorrhaphy, orthopedic, other Additional surgical history: 3 knee surgeries, nose surgery, gallbladder, collapsed lung x2, colonoscopy, right thoracosopy & thoracotomy, EGD, ERCP, Upper EUS,ERCP, Cariac cath, cystoscopy transurethral recetion prostate bipolar - Social History Smoking Status: Current every day smoker Smokeless Tobacco Status: No Alcohol use: none Drug use: none - Family History Mother Adopted: No Living Status: Hx Family Cardiac Disorders: No Hx Family Respiratory Disorders: No Hx Family Cancer: No Hx Family GI Disorders: Yes Hx Family Endocrine Disorder: No Hx Family Neuromuscular Disorders: No Hx Family Neurologic Disorders: No Hx Family HEENT Disorders: No Hx Family Autoimmune Disorders: No Father Adopted: No Family Member Ethnicity: Non- Living Status: Hx Family Cardiac Disorders: No Hx Family Respiratory Disorders: Yes Hx Family Cancer: No Hx Family GI Disorders: No Hx Family Endocrine Disorder: No Hx Family Neuromuscular Disorders: No Hx Family Neurologic Disorders: No Hx Family HEENT Disorders: No Hx Family Autoimmune Disorders: No Internal Medicine - H&P: Meds Aspirin Enteric Coated [Aspirin EC] 81 mg PO DAILY 11/27/16 [History] Glimepiride [Amaryl] 4 mg PO DAILY 11/27/16 [History] Metoprolol [Lopressor] 12.5 mg PO BID 11/27/16 [History] Omeprazole [PriLOSEC] 40 mg PO DAILY 11/27/16 [History] Tamsulosin [Flomax] 0.4 mg PO DAILY 11/27/16 [History] metFORMIN [Glucophage] 1,000 mg PO BIDWM 11/27/16 [History] Albuterol Neb [Proventil Neb] 2.5 mg IH Q4HR PRN 07/06/17 [History] Albuterol Sulfate [Proair Hfa] 2 puff IH Q4H PRN 07/06/17 [History] Ipratropium Neb [Atrovent Neb] 0.5 mg IH Q8H PRN 07/06/17 [History] Magnesium 250 mg PO DAILY 07/06/17 [History] Tiotropium Br/Olodaterol HCl [Stiolto Respimat Inhal [place]] 2 puff IH DAILY 01/13 [History] Pioglitazone HCl [Actos] 45 mg PO DAILY 09/25/17 [History] PredniSONE [Betzaida] 5 mg PO Q48H 09/25/17 [History] HYDROcodone/Acet 5/325 mg [[place] 5-325 mg] 1 tab PO Q6HR PRN 4 Days #8 tablet [Rx] Losartan [Cozaar] 12.5 mg PO DAILY #30 tablet 09/27/17 [Rx] levoFLOXacin [Levaquin] 500 mg PO DAILY #2 tablet 09/27/17 [Rx] 3 Allergy/AdvReac Type Severity Reaction Status Date / Time No Known Allergies Allergy Verified 09/25/17 15:34 All Systems PM: A 10-system review of systems was performed and is negative for pertinent findings except as documented above in the HPI. - Constitutional Vitals: Temp Pulse Resp BP Pulse Ox 98.1 F 114 20 158/84 100 11/29/17 02:18 11/29/17 04:19 11/29/17 04:19 11/29/17 04:19 11/29/17 04:19 Exam: Vitals: Reviewed General: Well developed man, mild respiratory distress. Smells of cigarettes. Skin: No ulcers or lesions. HEENT: Moist mucous membranes. No conjunctivae pallor. Neck: No lymphadenopathy. No JVD. Chest: Diminished thoracic expansion. Decreased air entry bilaterally with scattered wheezes in both lung [place]. Heart: Normal S1 & S2; rhythmic. Abdomen: Non-distended, soft and non-tender to palpation. Extremities: No clubbing, cyanosis or edema. No calf tenderness. Normal distal pulses. Neurological: Awake, alert and oriented to person, place and time. No focal deficits. Psych: Affect appropriate. Internal Med - H&P Results - Labs CBC & Chem 7: 11/29/17 02:58 11/29/17 02:58 - Assessment and plan (1) COPD exacerbation Current Visit: Yes Status: Acute Assessment and plan: Associated with ongoing tobacco abuse. Place on standing q4hr nebs, prednisone 60mg daily and give a 3 day course of azithromycin 500mg daily. (2) Acute respiratory failure with hypoxia Current Visit: Yes Status: Acute Assessment and plan: Secondary to COPD exacerbation. Will need re-eval of home oxygen needs in regards to frequency and volume. For now will treat underlying condition. (3) Tobacco abuse Current Visit: Yes Status: Acute Assessment and plan: Extensive counseling and education provided; resources made available. (4) Diabetes mellitus Current Visit: Yes Status: Chronic Assessment and plan: Will hold oral agents for now and place on insulin sliding scale. Qualifiers: Diabetes mellitus type: type 2 Diabetes mellitus community health worker insulin use: unspecified community health worker insulin 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 (5) HTN (hypertension) Current Visit: Yes Status: Chronic Assessment and plan: Will resume home oral antihypertensives. Qualifiers: Hypertension type: essential hypertension Qualified Code(s): I10 - Essential (primary) hypertension - Time Spent With Patient Total time spent is greater than 50% in coordination of care (as documented) at patient's floor/unit and/or counseling patient: Greater than 35 minutes
[2017-11-29] MEDS: *HR* Heparin 5,000 UNIT/ML VIAL SQ SCH ×3 (05:51→20:42)
[2017-11-29] MEDS: Ipratropium/Albuterol Neb 3 ML IH SCH ×4 (07:32→20:18)
--- NOTE | 2017-11-29 08:10 | Emergency Department Note ---
Disposition Clinical Impression: COPD exacerbation, Tobacco abuse Disposition: Admitted As Inpatient Condition: Fair General Adult HPI - General Chief complaint: ED Shortness of Breath/Dyspnea Stated complaint: MISA Time Seen by Provider: 11/29/17 02:39 Source: patient Mode of arrival: ambulatory Limitations: no limitations Nursing Notes Reviewed: Yes Vital Signs Reviewed: Yes - History of Present Illness Pain Scale: 0 - Related Data Home Medications Medication Instructions Recorded Confirmed Aspirin Enteric Coated [Aspirin EC] 81 mg PO DAILY 11/27/16 11/29/17 Glimepiride [Amaryl] 4 mg PO DAILY 11/27/16 11/29/17 Metoprolol [Lopressor] 12.5 mg PO BID 11/27/16 11/29/17 Omeprazole [PriLOSEC] 40 mg PO DAILY 11/27/16 11/29/17 Tamsulosin [Flomax] 0.4 mg PO DAILY 11/27/16 11/29/17 metFORMIN [Glucophage] 1,000 mg PO BIDWM 11/27/16 11/29/17 Albuterol Neb [Proventil Neb] 2.5 mg IH Q4HR PRN 07/06/17 11/29/17 Albuterol Sulfate [Proair Hfa] 2 puff IH Q4H PRN 07/06/17 11/29/17 Ipratropium Neb [Atrovent Neb] 0.5 mg IH Q8H PRN 07/06/17 11/29/17 Magnesium 250 mg PO DAILY 07/06/17 11/29/17 Tiotropium Br/Olodaterol HCl 2 puff IH DAILY 07/06/17 11/29/17 [Stiolto Respimat Inhal [place]] Pioglitazone HCl [Actos] 45 mg PO DAILY 09/25/17 11/29/17 PredniSONE [Betzaida] 5 mg PO Q48H 09/25/17 11/29/17 Previous Rx's Medication Instructions Recorded Losartan [Cozaar] 12.5 mg PO DAILY #30 tablet 09/27/17 Allergies Allergy/AdvReac Type Severity Reaction Status Date / Time No Known Allergies Allergy Verified 09/25/17 15:34 Constitutional: Denies: fever Cardiovascular: Denies: chest pain Respiratory: Reports: cough, dyspnea, sputum production Gastrointestinal: Denies: abdominal pain, nausea, vomiting Past Medical History - Past Medical History Medical history: Reports: COPD, diabetes, GERD, hypertension, other Surgical history: Reports: herniorrhaphy, orthopedic, other Psychiatric history: Reports: other - Social History Smoking Status: Current every day smoker Smokeless Tobacco Status: No Alcohol use: Reports: none Drug use: Reports: none Physical Exam - General Limitations: no limitations General appearance: alert, in no apparent distress, cachectic Course Vital Signs Temperature 98.1 F 11/29/17 02:18 Pulse Rate 101 11/29/17 02:18 Respiratory Rate 20 11/29/17 02:18 Blood Pressure 144/83 11/29/17 02:18 O2 Sat by Pulse Oximetry 94 11/29/17 02:18 Temperature 98.2 F 11/29/17 07:38 Pulse Rate 116 11/29/17 07:38 Respiratory Rate 19 11/29/17 07:38 Blood Pressure 161/79 11/29/17 07:38 O2 Sat by Pulse Oximetry 97 11/29/17 07:38 Oxygen Delivery Oxygen Delivery Aerosol Mask Medical Decision Making - Medical Records Medical records reviewed: Yes I reviewed the patient's medical records. - Lab Data Lab results reviewed: Yes I reviewed the patient's lab results. Result diagrams: 11/29/17 02:58 11/29/17 02:58 Lab Results 11/29/17 11/29/17 11/29/17 Range/Units 02:58 02:58 02:58 WBC 11.2 H (4.3-11.1) K/mcL RBC 4.36 (4.19-5.50) M/mcL Hgb 12.3 L (12.9-16.9) g/dL Hct 39.5 (37.5-50.1) % MCV 90.6 (83.0-100.0) fL MCH 28.2 (28.0-33.3) pg MCHC 31.1 L (31.6-35.5) g/dL RDW 14.6 H (11.5-14.5) % Plt Count 358 (140-400) K/mcL MPV 9.3 L (9.4-12.4) fL Immature Gran % 0.5 (0-4) % Seg Neutrophils % 76.7 % Lymphocytes % 12.0 % Monocytes % 6.3 % Eosinophils % 4.0 % Basophils % 0.5 % Neutrophils # 8.6 (1.6-8.9) K/mcL Lymphocytes # 1.3 (0.6-4.6) K/mcL Monocytes # 0.7 (0.0-1.3) K/mcL Eosinophils # 0.5 (0.0-0.6) K/mcL Basophils # 0.1 (0.0-0.2) K/mcL Sodium 138 (136-145) mEq/L Potassium 4.5 (3.5-5.1) mEq/L Chloride 101 (98-107) mEq/L Carbon Dioxide 33 H (23-29) mEq/L BUN 22 (8-23) mg/dL Creatinine 0.69 L (0.70-1.30) mg/dL Est GFR ( Amer) > 60 (> 60) Est GFR (Non-Af Amer) > 60 (> 60) BUN/Creatinine Ratio 32 H (6-26) Glucose 180 H (70-105) mg/dL Calculated Osmolality 294 (280-300) Lactic Acid (0.5-2.2) mmol/L Calcium 9.3 (8.6-10.3) mg/dL Troponin I < 0.03 (< 0.04) ng/mL B-Natriuretic Peptide 76 (Less than 100) pg/mL 11/29/17 Range/Units 03:06 WBC (4.3-11.1) K/mcL RBC (4.19-5.50) M/mcL Hgb (12.9-16.9) g/dL Hct (37.5-50.1) % MCV (83.0-100.0) fL MCH (28.0-33.3) pg MCHC (31.6-35.5) g/dL RDW (11.5-14.5) % Plt Count (140-400) K/mcL MPV (9.4-12.4) fL Immature Gran % (0-4) % Seg Neutrophils % % Lymphocytes % % Monocytes % % Eosinophils % % Basophils % % Neutrophils # (1.6-8.9) K/mcL Lymphocytes # (0.6-4.6) K/mcL Monocytes # (0.0-1.3) K/mcL Eosinophils # (0.0-0.6) K/mcL Basophils # (0.0-0.2) K/mcL Sodium (136-145) mEq/L Potassium (3.5-5.1) mEq/L Chloride (98-107) mEq/L Carbon Dioxide (23-29) mEq/L BUN (8-23) mg/dL Creatinine (0.70-1.30) mg/dL Est GFR ( Amer) (> 60) Est GFR (Non-Af Amer) (> 60) BUN/Creatinine Ratio (6-26) Glucose (70-105) mg/dL Calculated Osmolality (280-300) Lactic Acid 0.8 (0.5-2.2) mmol/L Calcium (8.6-10.3) mg/dL Troponin I (< 0.04) ng/mL B-Natriuretic Peptide (Less than 100) pg/mL - Radiology Data Radiology results reviewed: Yes I reviewed the patient's radiology results. Chest X-Ray 11/29/17 02:48 IMPRESSION: No acute disease. D/ / Ramesh Estrada MD / Ramesh Estrada MD Interpreting Provider: Ramesh Estrada MD Critical Care Time Critical Care Time: Yes Total Critical Care Time: 35 Attestation: Critical care performed: Time is exclusive of separately billable procedures. Time includes: direct patient care, patient reassessment, coordination of patient care, interpretation of data (laboratory data, radiology data, and respiratory data), review of patient's medical records, medical consultation and documentation of patient care. Procedures included in critical care time: Procedures excluded from critical care time: Attestation Statement - Attestation Attestation: IJasvir MD, personally evaluated this patient and discussed their management with the resident physician. I reviewed the resident's note and agree with the documented findings, medical decision making, and plan of care. 77-year-old male presents to the emergency department with a complaint of increasing shortness of breath over the past several days. There has been some increased cough with yellow sputum production. No fever. No chest pain. Patient does have home oxygen. On examination patient is a well-developed well-nourished elderly male in no acute distress. He is mildly dyspneic. There is no cyanosis or diaphoresis. He is alert and oriented 3. Chest is nontender to palpation. Breath sounds are decreased bilaterally with diffuse bilateral expiratory wheezes. Heart regular with a mild tachycardia. Abdomen soft and nontender with normal bowel sounds. Labs reviewed. Chest x-ray negative. Patient received triple DuoNeb treatment and IV Solu-Medrol in the emergency department. He was started on IV Rocephin and azithromycin for acute exacerbation of COPD. The hospitalist, Dr. Shepherd, was consulted and accepted admission of the patient.
[2017-11-29] MEDS: predniSONE 20 MG TABLET PO SCH (09:16)
[2017-11-29] MEDS: Magnesium Oxide 400 MG TABLET PO SCH (09:16)
[2017-11-29] MEDS: Aspirin Enteric Coated 81 MG Tablet PO SCH (09:16)
[2017-11-29] MEDS: Insulin LISPRO 300 UNITS/3 ML VIAL SQ SCH ×4 (09:22→22:18)
[2017-11-29] MEDS: Azithromycin 500 MG in D5% in Water 250 ML IVPB SCH (17:13)
--- NOTE | 2017-11-29 17:19 | Event Note ---
Date of Encounter: 11/29/17 Time of Encounter: 11:00 Patient evaluated by nocturnalist earlier this morning and also by myself. She is a 77-year-old male with past medical history significant for COPD who presents with shortness of breath found to have COPD exacerbation. Continue current management with by mouth prednisone and IV azithromycin.
[2017-11-30] MEDS: Ipratropium/Albuterol Neb 3 ML IH SCH ×6 (00:04→19:54)
[2017-11-30] MEDS: *HR* Heparin 5,000 UNIT/ML VIAL SQ SCH ×3 (05:10→20:43)
[2017-11-30] MEDS: Insulin LISPRO 300 UNITS/3 ML VIAL SQ SCH ×4 (07:35→20:43)
[2017-11-30] MEDS: predniSONE 20 MG TABLET PO SCH (07:36)
[2017-11-30] MEDS: Aspirin Enteric Coated 81 MG Tablet PO SCH (07:36)
[2017-11-30] MEDS: Magnesium Oxide 400 MG TABLET PO SCH (07:36)
[2017-11-30] MEDS ORDERED: *HR* Dextrose 50 % in Water (Syg) 50 ML SYRINGE IVP PRN (07:56)
[2017-11-30] MEDS ORDERED: D5% in Water 1,000 ML IVC PRN (07:56)
--- NOTE | 2017-11-30 11:51 | Internal Med Progress Note ---
Hospitalist Progress Note - Encounter Date of Encounter: 11/30/17 Time of Encounter: 11:45 - Subjective Interval History: Bertha seen and examined this morning. Denies new complains. Still feels short of breath. - Exam Vitals: Temp Pulse Resp BP Pulse Ox 99.0 F 91 16 118/63 96 11/30/17 10:39 11/30/17 10:39 11/30/17 11:01 11/30/17 10:39 11/30/17 11:01 Exam: Vitals: Reviewed General: Well developed man, mild respiratory distress. Smells of cigarettes. Skin: No ulcers or lesions. HEENT: Moist mucous membranes. No conjunctivae pallor. Neck: No lymphadenopathy. No JVD. Chest: Diminished thoracic expansion. Decreased air entry bilaterally with scattered wheezes in both lung [place]. Heart: Normal S1 & S2; rhythmic. Abdomen: Non-distended, soft and non-tender to palpation. Extremities: No clubbing, cyanosis or edema. No calf tenderness. Normal distal pulses. Neurological: Awake, alert and oriented to person, place and time. No focal deficits. Psych: Affect appropriate. - Assessment and Plan (1) COPD exacerbation Current Visit: Yes Status: Acute (2) Acute respiratory failure with hypoxia Current Visit: Yes Status: Acute (3) HTN (hypertension) Current Visit: Yes Status: Chronic (4) Diabetes mellitus Current Visit: Yes Status: Chronic (5) Tobacco abuse Current Visit: Yes Status: Chronic - Summary of Assessment and Plan Summary of Assessment and Plan: COPD exacerbation -c/w standing q4hr nebs, prednisone 60mg daily and give a 3 day course of azithromycin 500mg daily(day2). Solitary pulmonary naodule - Persistent 1.3 x 0.8 cm hypermetabolic, spiculated nodule in [place] with suspicious for primary neoplasm. - Will obtain pulmonology consultation. - May need tissue sampling. Acute respiratory failure with hypoxia - Secondary to COPD exacerbation. - Will need re-eval of home oxygen needs in regards to frequency and volume. Tobacco abuse -Extensive counseling and education provided; resources made available. Diabetes mellitus -Will hold oral agents for now and place on insulin sliding scale. HTN - Will resume home oral antihypertensives. - Time Spent with Patient Total time spent is greater than 50% in coordination of care (as documented) at patient's floor/unit and/or counseling patient: Internal Medicine: Result - Labs CBC & Chem 7: 11/29/17 02:58 11/29/17 02:58 - VTE Reasons for not Prescribing Prophylaxis: Medical contraindication Consult Discharge Plan - Plan Referrals: Jasvir Adler MD [Partnered Physician] - 12/09/17 1:30 pm (Please follow up as schedule...) Rich Trujillo DO [Primary Care Provider] - (3) HTN (hypertension) Qualifiers: Hypertension type: essential hypertension Qualified Code(s): I10 - Essential (primary) hypertension (4) Diabetes mellitus Qualifiers: Diabetes mellitus type: type 2 Diabetes mellitus senior care insulin use: unspecified 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
--- NOTE | 2017-11-30 14:09 | Pulmonology Consult Note ---
Date of Encounter: 11/30/17 Time of Encounter: 13:30 Assessment and Plan (1) Lung nodules Current Visit: Yes Status: Acute PET scan is abnormal with hypermetabolic activities in the lung nodule and suspicious for primary lung cancer. Have discussed with primary team and fortunately with current condition that patient is in any complication from procedure whether it CT-guided biopsy or bronchoscopy will put patient in jeopardy for complications and for that reason his COPD exacerbation needs to be treated first and when stable enough biopsy can be done. (2) Acute exacerbation of chronic obstructive airways disease Current Visit: No Status: Acute Agree with current treatment and will add Symbicort to current treatment. (3) Mediastinal adenopathy Current Visit: Yes Status: Acute This is abnormal and possibly metastasis to the lymph node which will need biopsy when patient is more stable. (4) Tobacco abuse Current Visit: Yes Status: Chronic Advised patient to quit smoking. History of Present Illness Consult date: 11/30/17 Requesting physician: Anil Guzman Reason for consult: dyspnea, abnormal CXR/CT Chief complaint: Dyspnea History of present illness: This is a very pleasant 77-year-old male with multiple medical problems and continued to smoke tobacco with COPD on long-term oxygen therapy will presented to the hospital complaining cough and increasing shortness of breath for the past 3-4 days with productive cough and wheezing and he also complained of some chills. Patient has abnormal PET scan which is suspicious for primary lung cancer and pulmonary was consulted for an evaluation. Patient is still not feeling that and continued to have dyspnea. Patient has been treated with antibiotics and steroids. He denies any fever and he denies any nausea or vomiting. Past Med Surg Social Fam HX - Past Medical History Medical history: COPD, diabetes, GERD, hypertension, other Additional medical history: chronic respiratory failure, chronic obstructive lung disease, peripheral vascular disease Psychiatric history: other - Past Surgical History Surgical History: herniorrhaphy, orthopedic, other Additional surgical history: 3 knee surgeries, nose surgery, gallbladder, collapsed lung x2, colonoscopy, right thoracosopy & thoracotomy, EGD, ERCP, Upper EUS,ERCP, Cariac cath, cystoscopy transurethral recetion prostate bipolar - Social History Smoking Status: Current every day smoker Smokeless Tobacco Status: No Alcohol use: none Drug use: none - Family History Mother Adopted: No Living Status: Hx Family Cardiac Disorders: No Hx Family Respiratory Disorders: No Hx Family Cancer: No Hx Family GI Disorders: Yes Hx Family Endocrine Disorder: No Hx Family Neuromuscular Disorders: No Hx Family Neurologic Disorders: No Hx Family HEENT Disorders: No Hx Family Autoimmune Disorders: No Father Adopted: No Family Member Ethnicity: Non- Living Status: Hx Family Cardiac Disorders: No Hx Family Respiratory Disorders: Yes Hx Family Cancer: No Hx Family GI Disorders: No Hx Family Endocrine Disorder: No Hx Family Neuromuscular Disorders: No Hx Family Neurologic Disorders: No Hx Family HEENT Disorders: No Hx Family Autoimmune Disorders: No Medications and Allergies Aspirin Enteric Coated [Aspirin EC] 81 mg PO DAILY 11/27/16 [History] Glimepiride [Amaryl] 4 mg PO DAILY 11/27/16 [History] Metoprolol [Lopressor] 12.5 mg PO BID 11/27/16 [History] Omeprazole [PriLOSEC] 40 mg PO DAILY 11/27/16 [History] Tamsulosin [Flomax] 0.4 mg PO DAILY 11/27/16 [History] Albuterol Neb [Proventil Neb] 2.5 mg IH Q4HR PRN 07/06/17 [History] Albuterol Sulfate [Proair Hfa] 2 puff IH Q4H PRN 07/06/17 [History] Ipratropium Neb [Atrovent Neb] 1 puff IH Q8H PRN 07/06/17 [History] Magnesium 250 mg PO DAILY 07/06/17 [History] Tiotropium Br/Olodaterol HCl [Stiolto Respimat Inhal [place]] 2 puff IH DAILY 01/13 [History] Pioglitazone HCl [Actos] 45 mg PO DAILY 09/25/17 [History] Losartan [Cozaar] 12.5 mg PO DAILY #30 tablet 09/27/17 [Rx] Cilostazol [Pletal] 100 mg PO BID 11/29/17 [History] Megestrol Acetate [Megace] 40 mg PO BID 11/29/17 [History] Metformin HCl [Metformin HCl] 1,000 mg PO BID 11/29/17 [History] Polyethylene Glycol 3350 [MiraLAX bowel prep] 17 gm PO DAILY PRN 11/29/17 [ History] 3 Allergy/AdvReac Type Severity Reaction Status Date / Time No Known Allergies Allergy Verified 11/29/17 10:51 All Systems: The remainder of the systems were reviewed and are negative Physical Examination Vital Signs: Vital Signs, Last 4 Hours Temp Pulse Resp BP Pulse Ox 11/30/17 11:01 16 96 11/30/17 10:39 99.0 F 91 20 118/63 93 General: Patient is in no acute distress. HEENT: Normocephalic atraumatic, pupils are equal round and reactive to light and accommodation, anicteric sclera, nares is patent, mucous membranes moist, no JVD, trachea is midline Cardiovascular: Normal sinus rhythm, S1 and S2 audible, no murmur or rubs Respiratory: Diminished and wheezing to auscultation bilaterally. No acute distress. No wheezing. Patient using accessory muscles. Abdomen: Soft, nontender, nondistended, positive bowel sounds in all 4 quadrants Extremities: Warm, dry, trace lower extremity edema. Normal capillary refill. Neuro: Alert and oriented and follows commands. Grossly no neuro deficits. Skin: Warm to touch : No obvious abnormalities. Psych: Normal Results - Laboratory Findings CBC and BMP: 11/29/17 02:58 11/29/17 02:58 Abnormal lab findings: Abnormal lab results WBC 11.2 K/mcL (4.3-11.1) H 11/29/17 02:58 Hgb 12.3 g/dL (12.9-16.9) L 11/29/17 02:58 MCHC 31.1 g/dL (31.6-35.5) L 11/29/17 02:58 RDW 14.6 % (11.5-14.5) H 11/29/17 02:58 MPV 9.3 fL (9.4-12.4) L 11/29/17 02:58 Carbon Dioxide 33 mEq/L (23-29) H 11/29/17 02:58 Creatinine 0.69 mg/dL (0.70-1.30) L 11/29/17 02:58 BUN/Creatinine Ratio 32 (6-26) H 11/29/17 02:58 Glucose 180 mg/dL (70-105) H 11/29/17 02:58 POC Glucose 231 mg/dL (70-99) H 11/30/17 06:39 - Diagnostic Findings CT scan - chest: report reviewed, image reviewed - Clinical Findings Intake & Output: Intake & Output 11/29/17 11/30/17 11/30/17 23:59 07:59 15:59 Intake Total 360 / 360 Output Total 525 / 525 500 / 500 Balance -525 / -525 -500 / -500 360 / 360 Weight 63.072 kg Consult Discharge Plan - Plan Referrals: Rich Trujillo DO [Primary Care Provider] -
[2017-11-30] MEDS: Azithromycin 500 MG in D5% in Water 250 ML IVPB SCH (16:57)
[2017-11-30] MEDS: Budesonide/Formoterol 160/4.5 1 PUFF INH IH SCH (19:54)
[2017-12-01] MEDS: Ipratropium/Albuterol Neb 3 ML IH SCH ×8 (00:07→23:16)
[2017-12-01] MEDS: *HR* Heparin 5,000 UNIT/ML VIAL SQ SCH ×3 (04:48→21:53)
[2017-12-01] MEDS: Budesonide/Formoterol 160/4.5 1 PUFF INH IH SCH ×3 (07:26→23:16)
[2017-12-01] MEDS: predniSONE 20 MG TABLET PO SCH (08:02)
[2017-12-01] MEDS: Aspirin Enteric Coated 81 MG Tablet PO SCH (08:02)
[2017-12-01] MEDS: Magnesium Oxide 400 MG TABLET PO SCH (08:02)
[2017-12-01] MEDS: Insulin LISPRO 300 UNITS/3 ML VIAL SQ SCH ×4 (08:03→21:51)
--- NOTE | 2017-12-01 08:25 | Pulmonology Progress Note ---
<Tomeka Pepperreggie Asif - Last Filed: 12/01/17 10:05> Date of Encounter: 12/01/17 Time of Encounter: 09:02 Assessment and Plan (1) Acute exacerbation of chronic obstructive airways disease Current Visit: No Status: Acute Spoke with pt about symbicort, pt agreed to take medication while admitted Continue duonebs and supplemental O2 Continue Azithromycin (Day 2) Continue Prednisone 60mg po Add Spiriva since pt takes Stiolto at home (2) Lung nodules Current Visit: Yes Status: Acute PET scan showed hypermetabolic activity in lung nodule and is suspicious for primary lung cancer. CT-guided biopsy or bronchoscopy recommended when pt has stabilized from COPD exacerbation Will continue to follow (3) Mediastinal adenopathy Current Visit: Yes Status: Acute Possible metastasis and will need biopsy when stable (4) Tobacco abuse Current Visit: Yes Status: Chronic Pt currently smokes 1/2 ppd Spent >10 minutes discussing importance of smoking cessation with pt Subjective Principal diagnosis: Lung nodules and acute COPD exacerbation Interval history: No acute events overnight. Pt states he refused to take Symbicort last night because he was concerned it was not the medication he used at home (Stiolto). Pt also stated he had taken symbicort previously but it didnt help his symptoms. Pt does not think his home inhaler helps either. Denies any change in cough. Continued increased cough from normal baseline without sputum production. Admits to chest congestion, but states he feels like he is unable to cough the mucus up. Admits to some chills. Denies fever, chest pain, abdominal pain, nausea, vomiting, numbness, tingling, or headache. Pt admits to smoking 1/2ppd with thoughts of cessation. Objective PUL Vital signs: Last Vital Signs Temp 98.2 F 12/01/17 07:12 Pulse 107 12/01/17 07:12 Resp 17 12/01/17 07:38 BP 145/76 12/01/17 07:12 Pulse Ox 91 12/01/17 08:00 General appearance: no acute distress Eyes: nonicteric ENT: oropharynx moist Neck: supple, no lymphadenopathy, no JVD Effort: mildly labored Auscultation: bilateral: wheezes (diffuse ) Percussion: bilateral: not dull Tactile fremitus: bilateral: normal Cardiovascular: regular rate and rhythm Gastrointestinal: soft, non-tender, non-distended Integumentary: normal Extremities: no cyanosis, no edema, no clubbing, pink and warm Musculoskeletal: no deformities Gait: normal posture normal mental status, non-focal exam mood appropriate, affect normal Results - Laboratory Findings CBC and BMP: 11/29/17 02:58 11/29/17 02:58 Abnormal lab findings: Abnormal lab results WBC 11.2 K/mcL (4.3-11.1) H 11/29/17 02:58 Hgb 12.3 g/dL (12.9-16.9) L 11/29/17 02:58 MCHC 31.1 g/dL (31.6-35.5) L 11/29/17 02:58 RDW 14.6 % (11.5-14.5) H 11/29/17 02:58 MPV 9.3 fL (9.4-12.4) L 11/29/17 02:58 Carbon Dioxide 33 mEq/L (23-29) H 11/29/17 02:58 Creatinine 0.69 mg/dL (0.70-1.30) L 11/29/17 02:58 BUN/Creatinine Ratio 32 (6-26) H 11/29/17 02:58 Glucose 180 mg/dL (70-105) H 11/29/17 02:58 POC Glucose 317 mg/dL (70-99) H 11/30/17 20:10 - Clinical Findings Intake & Output: Intake & Output 11/30/17 12/01/17 12/01/17 23:59 07:59 15:59 Intake Total 730 / 730 Output Total 1150 / 1150 595 / 595 Balance -420 / -420 -595 / -595 Weight 64.467 kg - VTE Reasons for not Prescribing Prophylaxis: Medical contraindication Consult Discharge Plan - Plan Referrals: Jasvir Adler MD [Partnered Physician] - 12/09/17 1:30 pm (Please follow up as schedule...) Rich Trujillo DO [Primary Care Provider] - <Melissa Trotter - Last Filed: 12/01/17 16:10> Date of Encounter: 12/01/17 Assessment and Plan (1) Lung nodules Current Visit: Yes Status: Acute (2) Acute exacerbation of chronic obstructive airways disease Current Visit: No Status: Acute (3) Mediastinal adenopathy Current Visit: Yes Status: Acute (4) Tobacco abuse Current Visit: Yes Status: Chronic Objective PUL Vital signs: Last Vital Signs Temp 98 F 12/01/17 11:07 Pulse 87 12/01/17 11:07 Resp 16 12/01/17 15:30 BP 123/75 12/01/17 11:07 Pulse Ox 100 12/01/17 15:30 Results - Laboratory Findings CBC and BMP: 11/29/17 02:58 11/29/17 02:58 Abnormal lab findings: Abnormal lab results WBC 11.2 K/mcL (4.3-11.1) H 11/29/17 02:58 Hgb 12.3 g/dL (12.9-16.9) L 11/29/17 02:58 MCHC 31.1 g/dL (31.6-35.5) L 11/29/17 02:58 RDW 14.6 % (11.5-14.5) H 11/29/17 02:58 MPV 9.3 fL (9.4-12.4) L 11/29/17 02:58 Carbon Dioxide 33 mEq/L (23-29) H 11/29/17 02:58 Creatinine 0.69 mg/dL (0.70-1.30) L 11/29/17 02:58 BUN/Creatinine Ratio 32 (6-26) H 11/29/17 02:58 Glucose 180 mg/dL (70-105) H 11/29/17 02:58 POC Glucose 181 mg/dL (70-99) H 12/01/17 07:09 - Clinical Findings Intake & Output: Intake & Output 12/01/17 12/01/17 12/01/17 07:59 15:59 23:59 Intake Total 840 / 840 Output Total 595 / 595 Balance -595 / -595 840 / 840 Weight 64.467 kg - Attending Attestation I examined this patient and my medical decision-making was reviewed with the Resident Physician. I agree with the documented findings, disposition and treatment plan as described except to the extent set forth below. Patient seen and examined. Labs, radiology, chart personally reviewed. Agree with resident's history and physical, assessment, plan with following comments: MEDICAL RECORD SPECIALIST: Patient follows commands, Pulmonary: Acceptable oxygenation and ventilation. One more time patient has abnormal PET scan that is concerning and we will see the progress and how is he feeling but most likely bronchoscopy needs to be postponed at due to his exacerbation and in next 1-2 days if he has improvement then we will plan procedure to be done hopefully sometimes in near future.
[2017-12-01] MEDS: Tiotropium 18 MCG inhalation IH SCH (10:21)
--- NOTE | 2017-12-01 11:05 | Internal Med Progress Note ---
Hospitalist Progress Note - Encounter Date of Encounter: 12/01/17 Time of Encounter: 10:58 - Subjective Interval History: Patinet seen and examined this morning. Denies new complains. Breathing improving. - Exam Vitals: Temp Pulse Resp BP Pulse Ox 98.2 F 107 17 145/76 91 12/01/17 07:12 12/01/17 07:12 12/01/17 07:38 12/01/17 07:12 12/01/17 08:00 Exam: Vitals: Reviewed General: Well developed man, mild respiratory distress. Smells of cigarettes. Skin: No ulcers or lesions. HEENT: Moist mucous membranes. No conjunctivae pallor. Neck: No lymphadenopathy. No JVD. Chest: Diminished thoracic expansion. Decreased air entry bilaterally with scattered wheezes in both lung [place]. Heart: Normal S1 & S2; rhythmic. Abdomen: Non-distended, soft and non-tender to palpation. Extremities: No clubbing, cyanosis or edema. No calf tenderness. Normal distal pulses. Neurological: Awake, alert and oriented to person, place and time. No focal deficits. Psych: Affect appropriate. - Assessment and Plan (1) COPD exacerbation Current Visit: Yes Status: Acute (2) Acute respiratory failure with hypoxia Current Visit: Yes Status: Acute (3) HTN (hypertension) Current Visit: Yes Status: Chronic (4) Diabetes mellitus Current Visit: Yes Status: Chronic (5) Tobacco abuse Current Visit: Yes Status: Chronic - Summary of Assessment and Plan Summary of Assessment and Plan: COPD exacerbation - c/w standing q4hr nebs, prednisone 60mg daily and give a 3 day course of azithromycin 500mg daily(day2). - Started on symbicort while admitted. Also spiriva added(pt takes stiolto- Tiotropium-olodaterol- at home). Appreciate pulm recommendations. Solitary pulmonary naodule - Persistent 1.3 x 0.8 cm hypermetabolic, spiculated nodule in [place] with suspicious for primary neoplasm. - CT-guided biopsy or bronchoscopy recommended when pt has stabilized from COPD exacerbation Acute respiratory failure with hypoxia - Secondary to COPD exacerbation. - Will need re-eval of home oxygen needs in regards to frequency and volume. Tobacco abuse -Extensive counseling and education provided; resources made available. Diabetes mellitus -Will hold oral agents for now and place on insulin sliding scale. - Increase levemir to 15 given hyperglycemia. Likely from steroids. HTN - Will resume home oral antihypertensives. - Time Spent with Patient Total time spent is greater than 50% in coordination of care (as documented) at patient's floor/unit and/or counseling patient: Internal Medicine: Result - Labs CBC & Chem 7: 11/29/17 02:58 11/29/17 02:58 - VTE Reasons for not Prescribing Prophylaxis: Medical contraindication Consult Discharge Plan - Plan Referrals: Jasvir Adler MD [Partnered Physician] - 12/09/17 1:30 pm (Please follow up as schedule...) Rich Trujillo DO [Primary Care Provider] - (3) HTN (hypertension) Qualifiers: Hypertension type: essential hypertension Qualified Code(s): I10 - Essential (primary) hypertension (4) Diabetes mellitus Qualifiers: Diabetes mellitus type: type 2 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
[2017-12-01] MEDS: Nicotine 14 MG PATCH.TD24 TD SCH (14:35)
[2017-12-01] MEDS: Azithromycin 250 MG TABLET PO SCH (17:11)
[2017-12-01] MEDS ORDERED: Insulin DETEMIR 100 UNIT/ML X5UNITS SQ SCH (21:00)
[2017-12-01] MEDS: Insulin DETEMIR 100 UNIT/ML X5UNITS SQ SCH (21:52)
[2017-12-02] MEDS: Ipratropium/Albuterol Neb 3 ML IH SCH ×2 (03:35→07:33)
[2017-12-02] MEDS: *HR* Heparin 5,000 UNIT/ML VIAL SQ SCH ×3 (05:59→20:29)
[2017-12-02] MEDS: Tiotropium 18 MCG inhalation IH SCH (07:33)
[2017-12-02] MEDS: Budesonide/Formoterol 160/4.5 1 PUFF INH IH SCH ×2 (07:33→21:15)
[2017-12-02] MEDS: Insulin LISPRO 300 UNITS/3 ML VIAL SQ SCH ×4 (07:45→20:29)
--- NOTE | 2017-12-02 08:38 | Pulmonology Progress Note ---
<EvgenyTomekaMarysville A - Last Filed: 12/02/17 13:28> Date of Encounter: 12/02/17 Time of Encounter: 11:00 Assessment and Plan (1) Acute exacerbation of chronic obstructive airways disease Current Visit: No Status: Acute Continue duonebs and supplemental O2 Continue Azithromycin (Day 3) Continue Prednisone 60mg po Continue Spiriva and Symbicort Has improved, if continued clinical improvement may consider bronchoscopy in next 1-2 days (2) Lung nodules Current Visit: Yes Status: Acute PET scan showed hypermetabolic activity in lung nodule and is suspicious for primary lung cancer. CT-guided biopsy or bronchoscopy recommended when pt has stabilized from COPD exacerbation Will continue to follow (3) Mediastinal adenopathy Current Visit: Yes Status: Acute Possible metastasis and will need biopsy when stable (4) Tobacco abuse Current Visit: Yes Status: Chronic Pt currently smokes 1/2 ppd Spent >10 minutes discussing importance of smoking cessation with pt Subjective Principal diagnosis: Lung nodules and acute COPD exacerbation Interval history: No acute events overnight. Pt states he feels somewhat better today. States cough has improved slightly. No change in sputum production. Continued chills. Denies fever, chest pain, abdominal pain, nausea, vomiting, numbness, tingling, or headache. Pt admits to smoking 1/2ppd with thoughts of cessation. Objective PUL Vital signs: Last Vital Signs Temp 98.6 F 12/02/17 06:59 Pulse 92 12/02/17 06:59 Resp 15 12/02/17 06:59 BP 156/90 12/02/17 06:59 Pulse Ox 97 12/02/17 06:59 General appearance: no acute distress Eyes: nonicteric ENT: oropharynx moist Neck: supple, no lymphadenopathy, no JVD Effort: normal Auscultation: left: wheezes (lower), bilateral: diminished breath sounds Percussion: bilateral: not dull Tactile fremitus: bilateral: normal Cardiovascular: regular rate and rhythm Gastrointestinal: soft, non-tender, non-distended Integumentary: normal Extremities: no cyanosis, no edema, no clubbing, pink and warm Musculoskeletal: no deformities Gait: normal posture normal mental status, non-focal exam mood appropriate, affect normal Results - Laboratory Findings CBC and BMP: 11/29/17 02:58 11/29/17 02:58 Abnormal lab findings: Abnormal lab results WBC 11.2 K/mcL (4.3-11.1) H 11/29/17 02:58 Hgb 12.3 g/dL (12.9-16.9) L 11/29/17 02:58 MCHC 31.1 g/dL (31.6-35.5) L 11/29/17 02:58 RDW 14.6 % (11.5-14.5) H 11/29/17 02:58 MPV 9.3 fL (9.4-12.4) L 11/29/17 02:58 Carbon Dioxide 33 mEq/L (23-29) H 11/29/17 02:58 Creatinine 0.69 mg/dL (0.70-1.30) L 11/29/17 02:58 BUN/Creatinine Ratio 32 (6-26) H 11/29/17 02:58 Glucose 180 mg/dL (70-105) H 11/29/17 02:58 POC Glucose 181 mg/dL (70-99) H 12/01/17 07:09 - Clinical Findings Intake & Output: Intake & Output 12/01/17 12/02/17 12/02/17 23:59 07:59 15:59 Output Total 375 / 375 600 / 600 Balance -375 / -375 -600 / -600 Weight 65.5 kg - VTE Reasons for not Prescribing Prophylaxis: Medical contraindication Consult Discharge Plan - Plan Referrals: Jasvir Adler MD [Partnered Physician] - 12/09/17 1:30 pm (Please follow up as schedule...) Rich Trujillo, DO [Primary Care Provider] - <Melissa Trotter - Last Filed: 12/02/17 14:51> Date of Encounter: 12/02/17 Assessment and Plan (1) Lung nodules Current Visit: Yes Status: Acute (2) Acute exacerbation of chronic obstructive airways disease Current Visit: No Status: Acute (3) Mediastinal adenopathy Current Visit: Yes Status: Acute (4) Tobacco abuse Current Visit: Yes Status: Chronic Objective PUL Vital signs: Last Vital Signs Temp 98.7 F 12/02/17 11:14 Pulse 86 12/02/17 11:14 Resp 15 12/02/17 11:14 BP 147/77 12/02/17 11:14 Pulse Ox 99 12/02/17 11:14 Results - Laboratory Findings CBC and BMP: 11/29/17 02:58 11/29/17 02:58 Abnormal lab findings: Abnormal lab results WBC 11.2 K/mcL (4.3-11.1) H 11/29/17 02:58 Hgb 12.3 g/dL (12.9-16.9) L 11/29/17 02:58 MCHC 31.1 g/dL (31.6-35.5) L 11/29/17 02:58 RDW 14.6 % (11.5-14.5) H 11/29/17 02:58 MPV 9.3 fL (9.4-12.4) L 11/29/17 02:58 Carbon Dioxide 33 mEq/L (23-29) H 11/29/17 02:58 Creatinine 0.69 mg/dL (0.70-1.30) L 11/29/17 02:58 BUN/Creatinine Ratio 32 (6-26) H 11/29/17 02:58 Glucose 180 mg/dL (70-105) H 11/29/17 02:58 POC Glucose 375 mg/dL (70-99) H 12/02/17 11:16 - Clinical Findings Intake & Output: Intake & Output 12/01/17 12/02/17 12/02/17 23:59 07:59 15:59 Intake Total 720 / 720 Output Total 375 / 375 600 / 600 Balance -375 / -375 -600 / -600 720 / 720 Weight 65.5 kg - Attending Attestation I examined this patient and my medical decision-making was reviewed with the Resident Physician. I agree with the documented findings, disposition and treatment plan as described except to the extent set forth below. Patient seen and examined. Labs, radiology, chart personally reviewed. Agree with resident's history and physical, assessment, plan with following comments: MEDICAL SUPPLY TECHNICIAN: Patient follows commands, Pulmonary: Acceptable oxygenation and ventilation. Overall patient is feeling better. Recommendation remain the same and we will plan for bronchoscopy when pulmonary condition improve which is most likely would be outpatient.
[2017-12-02] MEDS: Magnesium Oxide 400 MG TABLET PO SCH (09:43)
[2017-12-02] MEDS: Aspirin Enteric Coated 81 MG Tablet PO SCH (09:43)
[2017-12-02] MEDS: predniSONE 20 MG TABLET PO SCH (09:43)
[2017-12-02] MEDS: Nicotine 14 MG PATCH.TD24 TD SCH (09:49)
[2017-12-02] MEDS: Albuterol 2.5 MG/3 ML NEBULIZER IH SCH ×2 (10:52→15:15)
--- NOTE | 2017-12-02 11:24 | Internal Med Progress Note ---
Hospitalist Progress Note - Encounter Date of Encounter: 12/02/17 Time of Encounter: 11:08 - Subjective Interval History: Bertha seen and examined this morning. Denies new complains. Breathing improving. - Exam Vitals: Temp Pulse Resp BP Pulse Ox 98.6 F 92 16 156/90 98 12/02/17 06:59 12/02/17 06:59 12/02/17 07:33 12/02/17 06:59 12/02/17 07:33 Exam: Vitals: Reviewed General: Well developed man, mild respiratory distress. Smells of cigarettes. Skin: No ulcers or lesions. HEENT: Moist mucous membranes. No conjunctivae pallor. Neck: No lymphadenopathy. No JVD. Chest: Diminished thoracic expansion. Decreased air entry bilaterally with minimal wheezes in both lung [place]. Heart: Normal S1 & S2; rhythmic. Abdomen: Non-distended, soft and non-tender to palpation. Extremities: No clubbing, cyanosis or edema. No calf tenderness. Normal distal pulses. Neurological: Awake, alert and oriented to person, place and time. No focal deficits. Psych: Affect appropriate. - Assessment and Plan (1) COPD exacerbation Current Visit: Yes Status: Acute (2) Acute respiratory failure with hypoxia Current Visit: Yes Status: Acute (3) HTN (hypertension) Current Visit: Yes Status: Chronic (4) Diabetes mellitus Current Visit: Yes Status: Chronic (5) Tobacco abuse Current Visit: Yes Status: Chronic - Summary of Assessment and Plan Summary of Assessment and Plan: COPD exacerbation - c/w standing q4hr nebs, prednisone 60mg daily and give a 5 day course of azithromycin 500mg daily(day4). - Started on symbicort while admitted. Also spiriva added(pt takes stiolto- Tiotropium-olodaterol- at home). Appreciate pulm recommendations. Solitary pulmonary naodule - Persistent 1.3 x 0.8 cm hypermetabolic, spiculated nodule in [place] with suspicious for primary neoplasm. - CT-guided biopsy or bronchoscopy recommended when pt has stabilized from COPD exacerbation Acute respiratory failure with hypoxia - Secondary to COPD exacerbation. - Will need re-eval of home oxygen needs in regards to frequency and volume. - No change in PT needs. Tobacco abuse -Extensive counseling and education provided; resources made available. Diabetes mellitus - Will hold oral agents for now and place on insulin sliding scale. - Increase levemir to 15 given hyperglycemia. Likely from steroids. Well controlled now. HTN - Will resume home oral antihypertensives. - Time Spent with Patient Total time spent is greater than 50% in coordination of care (as documented) at patient's floor/unit and/or counseling patient: Internal Medicine: Result - Labs CBC & Chem 7: 11/29/17 02:58 11/29/17 02:58 - VTE Reasons for not Prescribing Prophylaxis: Medical contraindication Consult Discharge Plan - Plan Referrals: Jasvir Adler MD [Partnered Physician] - 12/09/17 1:30 pm (Please follow up as schedule...) Rich Trujillo DO [Primary Care Provider] - (3) HTN (hypertension) Qualifiers: Hypertension type: essential hypertension Qualified Code(s): I10 - Essential (primary) hypertension (4) Diabetes mellitus Qualifiers: Diabetes mellitus type: type 2 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
[2017-12-02] MEDS: Azithromycin 250 MG TABLET PO SCH (17:15)
[2017-12-02] MEDS: Insulin DETEMIR 100 UNIT/ML X5UNITS SQ SCH (20:29)
[2017-12-02] MEDS: Albuterol 2.5 MG/3 ML NEBULIZER IH PRN (21:15)
[2017-12-03] MEDS: Albuterol 2.5 MG/3 ML NEBULIZER IH PRN ×4 (00:16→19:37)
[2017-12-03] MEDS: *HR* Heparin 5,000 UNIT/ML VIAL SQ SCH ×3 (05:52→20:50)
[2017-12-03] MEDS: Magnesium Oxide 400 MG TABLET PO SCH (07:23)
[2017-12-03] MEDS: Aspirin Enteric Coated 81 MG Tablet PO SCH (07:23)
[2017-12-03] MEDS: predniSONE 20 MG TABLET PO SCH (07:23)
[2017-12-03] MEDS: Insulin LISPRO 300 UNITS/3 ML VIAL SQ SCH ×4 (07:24→20:50)
[2017-12-03] MEDS: Nicotine 14 MG PATCH.TD24 TD SCH (07:24)
[2017-12-03] MEDS: Budesonide/Formoterol 160/4.5 1 PUFF INH IH SCH ×2 (07:40→19:38)
[2017-12-03] MEDS: Tiotropium 18 MCG inhalation IH SCH (07:40)
--- NOTE | 2017-12-03 15:16 | Internal Med Progress Note ---
Hospitalist Progress Note - Encounter Date of Encounter: 12/03/17 Time of Encounter: 09:23 - Subjective Interval History: Bertha seen and examined this morning. Denies new complains. Feeling better gradually. - Exam Vitals: Temp Pulse Resp BP Pulse Ox 98 F 92 16 154/74 94 12/03/17 10:46 12/03/17 10:46 12/03/17 14:22 12/03/17 10:46 12/03/17 14:22 Exam: Vitals: Reviewed General: Well developed man, no respiratory distress. Skin: No ulcers or lesions. HEENT: Moist mucous membranes. No conjunctivae pallor. Neck: No lymphadenopathy. No JVD. Chest: Diminished thoracic expansion. Decreased air entry bilaterally with minimal wheezes in both lung [place]. Heart: Normal S1 & S2; rhythmic. Abdomen: Non-distended, soft and non-tender to palpation. Extremities: No clubbing, cyanosis or edema. No calf tenderness. Normal distal pulses. Neurological: Awake, alert and oriented to person, place and time. No focal deficits. Psych: Affect appropriate. - Assessment and Plan (1) COPD exacerbation Current Visit: Yes Status: Acute (2) Acute respiratory failure with hypoxia Current Visit: Yes Status: Acute (3) HTN (hypertension) Current Visit: Yes Status: Chronic (4) Diabetes mellitus Current Visit: Yes Status: Chronic (5) Tobacco abuse Current Visit: Yes Status: Chronic - Summary of Assessment and Plan Summary of Assessment and Plan: COPD exacerbation - c/w standing q4hr nebs, prednisone 60mg daily and give a 5 day course of azithromycin 500mg daily - Continue on symbicort while admitted. Also spiriva added(pt takes stiolto- Tiotropium-olodaterol- at home). - Appreciate pulm recommendations. May undergo bronchoscopy in next 1-2 days per pulm. Solitary pulmonary naodule - Persistent 1.3 x 0.8 cm hypermetabolic, spiculated nodule in [place] with suspicious for primary neoplasm. - CT-guided biopsy or bronchoscopy recommended when pt has stabilized from COPD exacerbation Mediastinal adenopathy - Likely related to lung CA. - biopsy when stable Acute respiratory failure with hypoxia - Secondary to COPD exacerbation. - No change in PT needs. Tobacco abuse -Extensive counseling and education provided; resources made available. Diabetes mellitus - Will hold oral agents for now and place on insulin sliding scale. - Increase levemir to 20 given still some hyperglycemia. Likely from steroids. HTN - Will resume home oral antihypertensives. - Time Spent with Patient Total time spent is greater than 50% in coordination of care (as documented) at patient's floor/unit and/or counseling patient: Internal Medicine: Result - Labs CBC & Chem 7: 11/29/17 02:58 11/29/17 02:58 - VTE Reasons for not Prescribing Prophylaxis: Medical contraindication Consult Discharge Plan - Plan Referrals: Jasvir Adler MD [Partnered Physician] - 12/09/17 1:30 pm (Please follow up as schedule...) Rich Trujillo DO [Primary Care Provider] - (3) HTN (hypertension) Qualifiers: Hypertension type: essential hypertension Qualified Code(s): I10 - Essential (primary) hypertension (4) Diabetes mellitus Qualifiers: Diabetes mellitus type: type 2 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
[2017-12-03] MEDS: Azithromycin 250 MG TABLET PO SCH (16:23)
[2017-12-03] MEDS ORDERED: Insulin DETEMIR 100 UNIT/ML X5UNITS SQ SCH (21:00)
[2017-12-04] MEDS: Albuterol 2.5 MG/3 ML NEBULIZER IH PRN (00:09)
[2017-12-04] MEDS: Albuterol 2.5 MG/3 ML NEBULIZER IH SCH ×6 (03:58→23:24)
[2017-12-04] MEDS: *HR* Heparin 5,000 UNIT/ML VIAL SQ SCH ×3 (05:36→20:31)
[2017-12-04] MEDS: Tiotropium 18 MCG inhalation IH SCH (07:23)
[2017-12-04] MEDS: Budesonide/Formoterol 160/4.5 1 PUFF INH IH SCH ×2 (07:23→19:44)
[2017-12-04] MEDS: predniSONE 20 MG TABLET PO SCH (08:31)
[2017-12-04] MEDS: Aspirin Enteric Coated 81 MG Tablet PO SCH (08:31)
[2017-12-04] MEDS: Magnesium Oxide 400 MG TABLET PO SCH (08:31)
[2017-12-04] MEDS: Insulin LISPRO 300 UNITS/3 ML VIAL SQ SCH ×5 (08:31→20:32)
[2017-12-04] MEDS: Nicotine 14 MG PATCH.TD24 TD SCH (08:36)
--- NOTE | 2017-12-04 11:06 | Internal Med Progress Note ---
Hospitalist Progress Note - Encounter Date of Encounter: 12/04/17 Time of Encounter: 10:57 - Subjective Interval History: Bertha seen and examined this morning. Denies new complains. Feeling much better today. - Exam Vitals: Temp Pulse Resp BP Pulse Ox 98.1 F 98 18 149/73 96 12/04/17 07:48 12/04/17 07:48 12/04/17 07:48 12/04/17 07:48 12/04/17 07:48 Exam: Vitals: Reviewed General: Well developed man, no respiratory distress. On Nasal cannula. Skin: No ulcers or lesions. HEENT: Moist mucous membranes. No conjunctivae pallor. Neck: No lymphadenopathy. No JVD. Chest: Diminished thoracic expansion. Decreased air entry bilaterally with no wheezes in both lung sheffield. improved air entry compared to yesterda. Heart: Normal S1 & S2; rhythmic. Abdomen: Non-distended, soft and non-tender to palpation. Extremities: No clubbing, cyanosis or edema. No calf tenderness. Normal distal pulses. Neurological: Awake, alert and oriented to person, place and time. No focal deficits. Psych: Affect appropriate. - Assessment and Plan (1) COPD exacerbation Current Visit: Yes Status: Acute (2) Acute respiratory failure with hypoxia Current Visit: Yes Status: Acute (3) HTN (hypertension) Current Visit: Yes Status: Chronic (4) Diabetes mellitus Current Visit: Yes Status: Chronic (5) Tobacco abuse Current Visit: Yes Status: Chronic - Summary of Assessment and Plan Summary of Assessment and Plan: COPD exacerbation - c/w standing q4hr nebs, prednisone 60mg daily and give a 5 day course of azithromycin. last dose today. - Continue on symbicort while admitted. Also spiriva added(pt takes stiolto at home). - Appreciate pulm recommendations. May undergo bronchoscopy per pulm. Solitary pulmonary naodule - Persistent 1.3 x 0.8 cm hypermetabolic, spiculated nodule in [place] with suspicious for primary neoplasm. - CT-guided biopsy or bronchoscopy recommended when pt has stabilized from COPD exacerbation Mediastinal adenopathy - Likely related to lung CA. - biopsy when stable Acute respiratory failure with hypoxia - Secondary to COPD exacerbation. - No change in PT needs. Tobacco abuse -Extensive counseling and education provided; resources made available. Diabetes mellitus - Will hold oral agents for now and place on insulin sliding scale. - Increase levemir to 20 given still some hyperglycemia. Likely from steroids. - Better control now. HTN - c/w home oral antihypertensives. - Time Spent with Patient Total time spent is greater than 50% in coordination of care (as documented) at patient's floor/unit and/or counseling patient: Internal Medicine: Result - Labs CBC & Chem 7: 11/29/17 02:58 11/29/17 02:58 - VTE Reasons for not Prescribing Prophylaxis: Medical contraindication Consult Discharge Plan - Plan Referrals: Jasvir Adler MD [Partnered Physician] - 12/09/17 1:30 pm (Please follow up as schedule...) Rich Trujillo DO [Primary Care Provider] - (3) HTN (hypertension) Qualifiers: Hypertension type: essential hypertension Qualified Code(s): I10 - Essential (primary) hypertension (4) Diabetes mellitus Qualifiers: Diabetes mellitus type: type 2 Diabetes mellitus care home insulin use: unspecified care home insulin 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
[2017-12-04] MEDS: Azithromycin 250 MG TABLET PO SCH (17:27)
[2017-12-04] MEDS ORDERED: Insulin DETEMIR 100 UNIT/ML X5UNITS SQ SCH ×2 (21:00)
[2017-12-05] MEDS: Albuterol 2.5 MG/3 ML NEBULIZER IH SCH ×3 (03:43→11:12)
[2017-12-05] MEDS: *HR* Heparin 5,000 UNIT/ML VIAL SQ SCH (05:48)
[2017-12-05] MEDS: Tiotropium 18 MCG inhalation IH SCH (07:39)
[2017-12-05] MEDS: Budesonide/Formoterol 160/4.5 1 PUFF INH IH SCH (07:42)
[2017-12-05] MEDS: Insulin LISPRO 300 UNITS/3 ML VIAL SQ SCH ×4 (08:01→11:59)
[2017-12-05] MEDS: Magnesium Oxide 400 MG TABLET PO SCH (08:01)
[2017-12-05] MEDS: Aspirin Enteric Coated 81 MG Tablet PO SCH (08:01)
[2017-12-05] MEDS: Nicotine 14 MG PATCH.TD24 TD SCH (08:01)
[2017-12-05] MEDS: predniSONE 20 MG TABLET PO SCH (08:01)
[2017-12-05 08:02] VITALS: BP 124/61
--- NOTE | 2017-12-05 12:01 | Discharge Summary ---
- NOTES TO OUTPATIENT PROVIDER Notes to Outpatient Provider: Needs a biopsy of his lung nodule in left upper lobe which is suspicious of malignancy. Had difficulty controlling sugars while in hospital given steroids. Monitor that sugar closely. Finished 7 day steroid and 5 day azithromycin course. 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 Bishop is a 77 year old male with past medical history of hypertension, diabetes, history of tobacco use, COPD was admitted due to COPD exacerbation. Patient received a treatment course of 5 days of azithromycin and 7 days of steroids. Patient had recently affect scan done which showed left upper lobe nodule suspicion of neoplasm. Patient was seen by solution consultant.. Plan for biopsy once stable as outpatient. PT seen the patient . Patient would be discharged home to continue his home oxygen at the same level. - Time Spent with Patient Total time spent providing and/or coordinating discharge services: Greater than 30 minutes - Discharge Medications Home Medications: Aspirin Enteric Coated [Aspirin EC] 81 mg PO DAILY 11/27/16 [History] Glimepiride [Amaryl] 4 mg PO DAILY 11/27/16 [History] Metoprolol [Lopressor] 12.5 mg PO BID 11/27/16 [History] Omeprazole [PriLOSEC] 40 mg PO DAILY 11/27/16 [History] Tamsulosin [Flomax] 0.4 mg PO DAILY 11/27/16 [History] Albuterol Neb [Proventil Neb] 2.5 mg IH Q4HR PRN 07/06/17 [History] Albuterol Sulfate [Proair Hfa] 2 puff IH Q4H PRN 07/06/17 [History] Ipratropium Neb [Atrovent Neb] 1 puff IH Q8H PRN 07/06/17 [History] Magnesium 250 mg PO DAILY 07/06/17 [History] Tiotropium Br/Olodaterol HCl [Stiolto Respimat Inhal [place]] 2 puff IH DAILY 01/13 [History] Pioglitazone HCl [Actos] 45 mg PO DAILY 09/25/17 [History] Losartan [Cozaar] 12.5 mg PO DAILY #30 tablet 09/27/17 [Rx] Cilostazol [Pletal] 100 mg PO BID 11/29/17 [History] Megestrol Acetate [Megace] 40 mg PO BID 11/29/17 [History] Metformin HCl 1,000 mg PO BID 11/29/17 [History] Polyethylene Glycol 3350 [MiraLAX bowel prep] 17 gm PO DAILY PRN 11/29/17 [ History] Allergies/Adverse Reactions: 3 Allergy/AdvReac Type Severity Reaction Status Date / Time No Known Allergies Allergy Verified 11/29/17 10:51 Date of admission: 11/29/17 10:25 Primary care physician: Rich Trujillo DO Consults: 11/30/17 12:56 Consult to Pulmonology [CONS] Routine Consulting Provider: [facility] Flavia Reason for Consult: lung nodule Call Completed: Yes 11/30/17 13:38 Consult to Wound Care [CONS] Routine Reason for Consult: sore on right ankle, seen out patient. Call Completed: No Discharging clinician: Anil Heart Guzman - Constitutional Vitals: Temp Pulse Resp BP Pulse Ox 97.9 F 94 19 124/61 98 12/05/17 08:00 12/05/17 08:00 12/05/17 08:00 12/05/17 08:00 12/05/17 08:00 General appearance: Present: A&O X 3, no acute distress Exam: HEENT: Moist mucous membranes. No conjunctivae pallor. Neck: No lymphadenopathy. No JVD. Chest: Diminished thoracic expansion. Decreased air entry bilaterally with no wheezes in both lung she[place]. improved air entry. Heart: Normal S1 & S2; rhythmic. Abdomen: Non-distended, soft and non-tender to palpation. Extremities: No clubbing, cyanosis or edema. No calf tenderness. Normal distal pulses. Neurological: Awake, alert and oriented to person, place and time. No focal deficits. Psych: Affect appropriate. - Patient Status Disposition: Home, Self-Care Condition: Fair - Discharge Instructions Follow Up With: Jasvir Adler MD [Partnered Physician] - 12/09/17 1:30 pm (Please follow up as schedule...) Rich Trujillo, [Primary Care Provider] - Melissa Trotter MD [Partnered Physician] - - Diet and Activity Activity: as per physical therapy - VTE Reasons for not Prescribing Prophylaxis: Medical contraindication
== END 2017-12-05 13:50 | disposition home or self-care (01) | DRG 190 ==
LOC: 2ANU 02:13 → EMEROOARM 02:13 → SUATTDRO 04:06 → 2ANU 05:07 → SUATTDRO 10:25
PROVIDERS: ADMIT Internal Medicine; ATTEND Internal Medicine

== ENCOUNTER 2018-09-01 14:53 | Inpatient (IN) ==
[2018-09-01] MEDS ORDERED: methylPREDNISolone 125 MG/2 ML VIAL IVP ONE (15:22)
[2018-09-01] MEDS ORDERED: Ipratropium/Albuterol Neb 3 ML IH ONE (15:22)
--- NOTE | 2018-09-01 15:25 | Emergency Department Note ---
Disposition Clinical Impression: Acute exacerbation of chronic obstructive airways disease Disposition: Admitted As Inpatient Condition: Undetermined Referrals: Rich Trujillo DO [Primary Care Provider] - Forms: ED Satisfaction Letter Time of Disposition: 16:55 SOB HPI - General Chief Complaint: ED Shortness of Breath/Dyspnea Stated Complaint: MISA Time Seen by Provider: 09/01/18 15:16 Source: patient Mode of arrival: wheelchair Limitations: no limitations Nursing Notes Reviewed: Yes Vital Signs Reviewed: Yes - History of Present Illness 78-year-old male with history of COPD on 3 L nasal cannula [id number] arrives to the emergency department complaining of worsening shortness of breath over the past 5 days. Respiratory worse and today. The patient is been using his nebulized breathing treatments at home but states that he has continued to Sergey shortness of breath. Patient arrives to the emergency department an acute mild to moderate respiratory distress with tachypnea, accessory muscle use and pursing of his lips. The patient denies chest pain, fevers, chills, abdominal pain, nausea, vomiting, diarrhea. The patient denies any other acute complaints at this time. - Related Data Home Medications Medication Instructions Recorded Confirmed Aspirin Enteric Coated [Aspirin EC] 81 mg PO DAILY 11/27/16 05/18/18 Glimepiride [Amaryl] 30 mg PO DAILY 11/27/16 05/18/18 Metoprolol [Lopressor] 12.5 mg PO BID 11/27/16 05/18/18 Omeprazole [PriLOSEC] 40 mg PO DAILY 11/27/16 05/18/18 Tamsulosin [Flomax] 0.4 mg PO DAILY 11/27/16 05/18/18 Albuterol Neb [Proventil Neb] 2.5 mg IH Q4HR PRN 07/06/17 05/18/18 Albuterol Sulfate [Proair Hfa] 2 puff IH Q4H PRN 07/06/17 05/18/18 Ipratropium Neb [Atrovent Neb] 1 puff IH Q8H PRN 07/06/17 05/18/18 Magnesium 250 mg PO DAILY 07/06/17 05/18/18 Pioglitazone HCl [Actos] 45 mg PO DAILY 09/25/17 05/18/18 Metformin HCl 1,000 mg PO BID 11/29/17 05/18/18 Cilostazol [Pletal] 100 mg PO BID 04/15/18 05/18/18 Previous Rx's Medication Instructions Recorded Losartan [Cozaar] 12.5 mg PO DAILY #30 tablet 09/27/17 Tiotropium [Spiriva] 18 mcg IH DAILY #30 capsule 12/05/17 Allergies Allergy/AdvReac Type Severity Reaction Status Date / Time No Known Allergies Allergy Verified 05/18/18 11:07 All systems ED: reviewed and negative except as stated. Constitutional: Reports: weakness. Denies: fever, chills Eyes: Denies: vision change ENT ED: Denies: dysphagia Cardiovascular: Reports: dyspnea on exertion. Denies: chest pain, edema, syncop e Respiratory: Reports: cough, dyspnea, wheezes. Denies: hemoptysis, sputum production Gastrointestinal: Denies: abdominal pain, nausea, vomiting Genitourinary: Denies: urgency, dysuria Musculoskeletal: Denies: back pain Integumentary: Denies: rash Neurological: Denies: headache Past Medical History - Past Medical History Attestation: Yes The following information was validated with the patient. Source: patient, old records reviewed Medical history: Reports: COPD, diabetes, GERD, hypertension, other Surgical history: Reports: herniorrhaphy, orthopedic, other Psychiatric history: Reports: other - Social History Smoking Status: Current every day smoker Smokeless Tobacco Status: No Alcohol use: Reports: none Drug use: Reports: none Physical Exam - General Limitations: no limitations General appearance: alert, in distress (mild to moderate respiratory) - Head Head exam: atraumatic, normocephalic, normal inspection - Eye Eye exam: Present: normal appearance, PERRL, EOMI - ENT ENT exam: normal exam, normal oropharynx, mucous membranes moist - Neck Neck exam: Present: normal inspection, full ROM, trachea midline - Chest Chest inspection: Present: normal inspection, symmetric chest wall rise - Respiratory Respiratory exam: Present: respiratory distress (mild to moderate), accessory muscle use - Cardiovascular Cardiovascular exam: Present: normal rhythm, tachycardia - Abdominal Exam Abdominal exam: Present: soft, Non-Tender. Absent: tenderness, distention, guarding, rebound, rigidity - Extremities Exam Extremities exam: Present: normal inspection, full ROM, normal capillary refill. Absent: tenderness, pedal edema - Neurological Exam Neurological exam: Present: alert, oriented X3 - Skin Skin exam: Present: warm, dry, intact, normal color Course Vital Signs Temperature 98.6 F 09/01/18 15:09 Pulse Rate 105 09/01/18 15:09 Respiratory Rate 24 09/01/18 15:09 Blood Pressure 137/81 09/01/18 15:09 O2 Sat by Pulse Oximetry 95 09/01/18 15:09 Temperature 98.6 F 09/01/18 15:09 Pulse Rate 101 09/01/18 16:29 Respiratory Rate 27 09/01/18 16:29 Blood Pressure 151/71 09/01/18 16:29 O2 Sat by Pulse Oximetry 96 09/01/18 16:29 Oxygen Delivery Oxygen Delivery Nasal Cannula Shortness of Breath/Dyspnea - MDM Narrative Medical decision making narrative: Patient's workup in the emergency department demonstrates findings consistent with a COPD exacerbation. The patient improved drastically with breathing treatments here in the emergency department but given the severity of his symptoms combined with his tachypnea and O2 requirement at home, we will admit the patient to the hospital for further observation. Patient made aware and agrees to plan. Lab work does demonstrate a mildly elevated potassium but his kidney function was within normal limits. The patient is also a diabetic but he is on metformin is not insulin-dependent with no anion gap noted but a glucose of 446. Patient will be admitted to the hospital at this time. Patient made aware and agrees to plan. No further questions or concerns noted. Accepted by Dr. Avery. - Lab Data Lab results reviewed: Yes I reviewed the patient's lab results. Result diagrams: 09/01/18 15:41 09/01/18 15:41 Lab Results 09/01/18 09/01/18 Range/Units 15:41 15:41 WBC 9.0 (4.3-11.1) K/mcL RBC 5.01 (4.19-5.50) M/mcL Hgb 14.3 (12.9-16.9) g/dL Hct 45.6 (37.5-50.1) % MCV 91.0 (83.0-100.0) fL MCH 28.5 (28.0-33.3) pg MCHC 31.4 L (31.6-35.5) g/dL RDW 14.8 H (11.5-14.5) % Plt Count 317 (140-400) K/mcL MPV 10.0 (9.4-12.4) fL Immature Gran % 1.0 (0-4) % Seg Neutrophils % 75.8 % Lymphocytes % 13.5 % Monocytes % 7.2 % Eosinophils % 1.9 % Basophils % 0.6 % Neutrophils # 6.9 (1.6-8.9) K/mcL Lymphocytes # 1.2 (0.6-4.6) K/mcL Monocytes # 0.7 (0.0-1.3) K/mcL Eosinophils # 0.2 (0.0-0.6) K/mcL Basophils # 0.1 (0.0-0.2) K/mcL Sodium 136 (136-145) mEq/L Potassium 5.2 H (3.5-5.1) mEq/L Chloride 97 L (98-107) mEq/L Carbon Dioxide 33 H (23-29) mEq/L BUN 15 (8-23) mg/dL Creatinine 0.67 L (0.70-1.30) mg/dL Est GFR ( Amer) > 60 (> 60) Est GFR (Non-Af Amer) > 60 (> 60) BUN/Creatinine Ratio 22 (6-26) Glucose 446 H (70-105) mg/dL Calculated Osmolality 302 H (280-300) Calcium 9.3 (8.6-10.3) mg/dL Troponin I < 0.03 (< 0.04) ng/mL - Radiology Data Radiology results reviewed: Yes I reviewed the patient's radiology results. Chest X-Ray 09/01/18 15:21 IMPRESSION: Emphysema. Unchanged prominent central pulmonary arteries. No acute cardiopulmonary disease. Moderate hiatal hernia. D/ / Garfield Turcios MD / Garfield Turcios MD Interpreting Provider: Garfield Turcios MD - EKG Data EKG attestation: Yes I reviewed and interpreted this EKG. EKG results narrative: Heart 107 beats for minute. Sinus tachycardia with some PACs noted. Large amount of artifact secondary to patient's respiratory status. No ST elevation or ST depression noted but difficult to completely assess secondary to the large amount of artifact.
--- NOTE | 2018-09-01 15:45 | Emergency Department Note ---
Disposition Clinical Impression: Acute exacerbation of chronic obstructive airways disease Disposition: Admitted As Inpatient Condition: Undetermined Forms: ED Satisfaction Letter Time of Disposition: 17:41 General Adult HPI - General Chief complaint: ED Shortness of Breath/Dyspnea Stated complaint: MISA Time Seen by Provider: 09/01/18 15:16 Source: patient Mode of arrival: wheelchair Limitations: no limitations - History of Present Illness Pain Scale: 0 - Related Data Home Medications Medication Instructions Recorded Confirmed Aspirin Enteric Coated [Aspirin EC] 81 mg PO DAILY 11/27/16 05/18/18 Glimepiride [Amaryl] 30 mg PO DAILY 11/27/16 05/18/18 Metoprolol [Lopressor] 12.5 mg PO BID 11/27/16 05/18/18 Omeprazole [PriLOSEC] 40 mg PO DAILY 11/27/16 05/18/18 Tamsulosin [Flomax] 0.4 mg PO DAILY 11/27/16 05/18/18 Albuterol Neb [Proventil Neb] 2.5 mg IH Q4HR PRN 07/06/17 05/18/18 Albuterol Sulfate [Proair Hfa] 2 puff IH Q4H PRN 07/06/17 05/18/18 Ipratropium Neb [Atrovent Neb] 1 puff IH Q8H PRN 07/06/17 05/18/18 Magnesium 250 mg PO DAILY 07/06/17 05/18/18 Pioglitazone HCl [Actos] 45 mg PO DAILY 09/25/17 05/18/18 Metformin HCl 1,000 mg PO BID 11/29/17 05/18/18 Cilostazol [Pletal] 100 mg PO BID 04/15/18 05/18/18 Previous Rx's Medication Instructions Recorded Losartan [Cozaar] 12.5 mg PO DAILY #30 tablet 09/27/17 Tiotropium [Spiriva] 18 mcg IH DAILY #30 capsule 12/05/17 Allergies Allergy/AdvReac Type Severity Reaction Status Date / Time No Known Allergies Allergy Verified 05/18/18 11:07 Constitutional: Reports: weakness. Denies: fever, chills Eyes: Denies: vision change ENT ED: Denies: dysphagia Cardiovascular: Reports: dyspnea on exertion. Denies: chest pain, edema, syncope Respiratory: Reports: cough, dyspnea, wheezes. Denies: hemoptysis, sputum production Gastrointestinal: Denies: abdominal pain, nausea, vomiting Genitourinary: Denies: urgency, dysuria Musculoskeletal: Denies: back pain Integumentary: Denies: rash Neurological: Denies: headache Past Medical History - Past Medical History Medical history: Reports: COPD, diabetes, GERD, hypertension, other Surgical history: Reports: herniorrhaphy, orthopedic, other Psychiatric history: Reports: other - Social History Smoking Status: Current every day smoker Smokeless Tobacco Status: No Alcohol use: Reports: none Drug use: Reports: none Physical Exam - General Limitations: no limitations General appearance: alert, in distress (mild to moderate respiratory) Course Vital Signs Temperature 98.6 F 09/01/18 15:09 Pulse Rate 105 09/01/18 15:09 Respiratory Rate 24 09/01/18 15:09 Blood Pressure 137/81 09/01/18 15:09 O2 Sat by Pulse Oximetry 95 09/01/18 15:09 Temperature 98.6 F 09/01/18 15:09 Pulse Rate 101 09/01/18 16:29 Respiratory Rate 27 09/01/18 16:29 Blood Pressure 151/71 09/01/18 16:29 O2 Sat by Pulse Oximetry 96 09/01/18 16:29 Oxygen Delivery Oxygen Delivery Nasal Cannula Medical Decision Making - Lab Data Result diagrams: 09/01/18 15:41 09/01/18 15:41 Lab Results 09/01/18 09/01/18 Range/Units 15:41 15:41 WBC 9.0 (4.3-11.1) K/mcL RBC 5.01 (4.19-5.50) M/mcL Hgb 14.3 (12.9-16.9) g/dL Hct 45.6 (37.5-50.1) % MCV 91.0 (83.0-100.0) fL MCH 28.5 (28.0-33.3) pg MCHC 31.4 L (31.6-35.5) g/dL RDW 14.8 H (11.5-14.5) % Plt Count 317 (140-400) K/mcL MPV 10.0 (9.4-12.4) fL Immature Gran % 1.0 (0-4) % Seg Neutrophils % 75.8 % Lymphocytes % 13.5 % Monocytes % 7.2 % Eosinophils % 1.9 % Basophils % 0.6 % Neutrophils # 6.9 (1.6-8.9) K/mcL Lymphocytes # 1.2 (0.6-4.6) K/mcL Monocytes # 0.7 (0.0-1.3) K/mcL Eosinophils # 0.2 (0.0-0.6) K/mcL Basophils # 0.1 (0.0-0.2) K/mcL Sodium 136 (136-145) mEq/L Potassium 5.2 H (3.5-5.1) mEq/L Chloride 97 L (98-107) mEq/L Carbon Dioxide 33 H (23-29) mEq/L BUN 15 (8-23) mg/dL Creatinine 0.67 L (0.70-1.30) mg/dL Est GFR ( Amer) > 60 (> 60) Est GFR (Non-Af Amer) > 60 (> 60) BUN/Creatinine Ratio 22 (6-26) Glucose 446 H (70-105) mg/dL Calculated Osmolality 302 H (280-300) Calcium 9.3 (8.6-10.3) mg/dL Troponin I < 0.03 (< 0.04) ng/mL Attestation Statement - Attestation Attestation: I examined this patient and my medical decision-making was reviewed with the Resident Physician. I agree with the documented findings, disposition and treatment plan as described except to the extent set forth below. Patient presents to the ED with acute shortness of breath. Onset about 5 days ago. Coughing up yellow phlegm. No fever. No chest pain. No leg pain or swelling. No history of PE. On exam he is in no acute distress. Satting well on oxygen. End expiratory wheezing on lung auscultation. Trace pedal edema which she states is chronic. Plan. Cardiac workup. Nebs and steroids. Reevaluation. Last admission was in November. Normal white count. No fever. Chest x-ray is clear. Patient is not septic. Symptoms improved, but patient will be admitted for a COPD exacerbation. Chest X-Ray 09/01/18 15:21 IMPRESSION: Emphysema. Unchanged prominent central pulmonary arteries. No acute cardiopulmonary disease. Moderate hiatal hernia. D/ / Garfield Turcios MD / Garfield Turcios MD Interpreting Provider: Garfield Turcios MD
[2018-09-01 15:54] LABS: Basophils # 0.1 K/mcL (0.0-0.2); Basophils % 0.6 %; Eosinophils # 0.2 K/mcL (0.0-0.6); Eosinophils % 1.9 %; Hematocrit 45.6 % (37.5-50.1); Hemoglobin 14.3 g/dL (12.9-16.9); Lymphocytes # 1.2 K/mcL (0.6-4.6); Lymphocytes % 13.5 %; Mean Corpuscular HGB Conc 31.4 g/dL (31.6-35.5); Mean Corpuscular Hemoglobin 28.5 pg (28.0-33.3); Monocytes # 0.7 K/mcL (0.0-1.3); Monocytes % 7.2 %; Neutrophils # 6.9 K/mcL (1.6-8.9); Platelet Count 317 K/mcL (140-400); Red Blood Count 5.01 M/mcL (4.19-5.50); Red Cell Distribution Width 14.8 % (11.5-14.5); Segmented Neutrophils % 75.8 %
[2018-09-01 16:18] LABS: BUN/Creatinine Ratio 22 (6-26); Blood Urea Nitrogen 15 mg/dL (8-23); Calcium 9.3 mg/dL (8.6-10.3); Carbon Dioxide 33 mEq/L (23-29); Chloride 97 mEq/L (98-107); Glucose 446 mg/dL (70-105); Osmolality,Calculated 302 (280-300); Potassium 5.2 mEq/L (3.5-5.1); Sodium 136 mEq/L (136-145); Troponin I < 0.03 ng/mL (< 0.04); eGFR For African Americans > 60 (> 60); eGFR For Non-African Americans > 60 (> 60)
--- NOTE | 2018-09-01 17:27 | Internal Med History&Physical ---
Date of Encounter: 09/02/18 Internal Medicine - H&P: HPI History of present illness: 78-year-old male with history of COPD on 3 L nasal cannula who presented to the emergency department complaining of progressive worsening shortness of breath over the past 5 days. 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 He stated that he's been trying to use his respiratory treatment more frequently was no relief of his progressively worsening symptoms. The patient was hypoxemic on arrival and in mild respiratory distress. She was treated with respiratory treatment as well as Solu-Medrol which improve his respiratory status significantly. The patient denies chest pain, orthopnea, paroxysmal nocturnal dyspnea, palpitation or progressive worsening of lower extremity edema. He denied recent travel and history of blood clots, he was admitted for further evaluation and management of COPD exacerbation Past Med Surg Social Fam HX - Past Medical History Medical history: COPD, diabetes, GERD, hypertension, other Additional medical history: chronic respiratory failure, chronic obstructive lung disease, peripheral vascular disease Psychiatric history: other - Past Surgical History Surgical History: herniorrhaphy, orthopedic, other Additional surgical history: 3 knee surgeries, nose surgery, gallbladder, collapsed lung x2, colonoscopy, right thoracosopy & thoracotomy, EGD, ERCP, Upper EUS,ERCP, Cariac cath, cystoscopy transurethral recetion prostate bipolar - Social History Smoking Status: Current every day smoker Smokeless Tobacco Status: No Alcohol use: none Drug use: none - Family History Mother Adopted: No Living Status: Hx Family Cardiac Disorders: No Hx Family Respiratory Disorders: No Hx Family Cancer: No Hx Family GI Disorders: Yes Hx Family Endocrine Disorder: No Hx Family Neuromuscular Disorders: No Hx Family Neurologic Disorders: No Hx Family HEENT Disorders: No Hx Family Autoimmune Disorders: No Father Adopted: No Family Member Ethnicity: Non- Living Status: Hx Family Cardiac Disorders: No Hx Family Respiratory Disorders: Yes Hx Family Cancer: No Hx Family GI Disorders: No Hx Family Endocrine Disorder: No Hx Family Neuromuscular Disorders: No Hx Family Neurologic Disorders: No Hx Family HEENT Disorders: No Hx Family Autoimmune Disorders: No Internal Medicine - H&P: Meds Aspirin Enteric Coated [Aspirin EC] 81 mg PO DAILY 11/27/16 [History] Glimepiride [Amaryl] 30 mg PO DAILY 11/27/16 [History] Metoprolol [Lopressor] 12.5 mg PO BID 11/27/16 [History] Omeprazole [PriLOSEC] 40 mg PO DAILY 11/27/16 [History] Tamsulosin [Flomax] 0.4 mg PO DAILY 11/27/16 [History] Albuterol Neb [Proventil Neb] 2.5 mg IH Q4HR PRN 07/06/17 [History] Albuterol Sulfate [Proair Hfa] 2 puff IH Q4H PRN 07/06/17 [History] Ipratropium Neb [Atrovent Neb] 1 puff IH Q4-6H PRN 07/06/17 [History] Pioglitazone HCl [Actos] 45 mg PO DAILY 09/25/17 [History] Losartan [Cozaar] 12.5 mg PO DAILY #30 tablet 09/27/17 [Rx] Metformin HCl 1,000 mg PO BID 11/29/17 [History] Tiotropium [Spiriva] 18 mcg IH DAILY #30 capsule 12/05/17 [Rx] Budesonide/Formoterol 160/4.5 [Symbicort 160/4.5] 2 puff IH BIDR 09/01/18 [Hist ory] Allergy/AdvReac Type Severity Reaction Status Date / Time No Known Allergies Allergy Verified 05/18/18 11:07 All Systems PM: A 10-system review of systems was performed and is negative for pertinent findings except as documented above in the HPI. - Constitutional Vitals: Temp Pulse Resp BP Pulse Ox 98.6 F 101 27 151/71 96 09/01/18 15:09 09/01/18 16:29 09/01/18 16:29 09/01/18 16:29 09/01/18 16:29 General appearance: Present: A&O X 3 - Head Head exam: Present: atraumatic, normocephalic - Neck Neck exam general surgery: Present: supple, trachea midline. Absent: lymphadenopathy - Respiratory Respiratory exam: Present: CTAB, rhonchi, wheezes. Absent: accessory muscle use, rales - Cardiovascular Cardiovascular exam: Present: RRR, +S1, +S2. Absent: diastolic murmur, gallop, rubs, systolic murmur - GI/Abdominal GI/Abdominal exam: Present: normal bowel sounds, soft, no peritoneal signs. Absent: distended, tenderness - Extremities Exam Extremities exam: Present: warm, radial pulses palpable and symmetrical. Absent: calf tenderness, cyanotic, pedal edema Internal Med - H&P Results - Labs CBC & Chem 7: 09/01/18 15:41 09/02/18 01:32 Labs: Short CBC 09/01/18 Range/Units 15:41 WBC 9.0 (4.3-11.1) K/mcL Hgb 14.3 (12.9-16.9) g/dL Hct 45.6 (37.5-50.1) % Plt Count 317 (140-400) K/mcL Neutrophils # 6.9 (1.6-8.9) K/mcL BMP 09/01/18 15:41 Sodium 136 Potassium 5.2 H Chloride 97 L Carbon Dioxide 33 H BUN 15 Creatinine 0.67 L Glucose 446 H Calcium 9.3 Cardiac Enzymes 09/01/18 Range/Units 15:41 Troponin I < 0.03 (< 0.04) ng/mL - Impressions ITS Impressions Chest X-Ray 09/01/18 15:21 IMPRESSION: Emphysema. Unchanged prominent central pulmonary arteries. No acute cardiopulmonary disease. Moderate hiatal hernia. D/ / Garfield Turcios MD / Garfield Turcios MD Interpreting Provider: Garfield Turcios MD - Assessment and Plan (1) Acute exacerbation of chronic obstructive airways disease Current Visit: Yes Status: Acute Assessment and plan: - SOB due to asthma exacerbation caused by URTI, allergen exposure, medication nonocompliance PLAN: - Aerosols q 4 hr and PRN SOB - Solu-medrol 40 mg IV q 6 hr - O2 to keep SpO2 higher than 92% (SpO higher than 95% if CAD) - CBCD, BMP in AM - Sputum Gram stain, C+S - Home meds - check the list and restart - Azithromycine 500 IV daily (2) Diabetes mellitus Current Visit: No Status: Chronic Assessment and plan: we will start the patient on insulin sliding scale with moderate coverage Qualifiers: Diabetes mellitus type: type 2 Diabetes mellitus care home insulin use: unspecified 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 insulin use status Diabetes mellitus complication status: with unspecified complications (3) HTN (hypertension) Current Visit: No Status: Chronic Assessment and plan: We Will hold losartan for now given the high potassium and monitor blood pressure while inpatient start when necessary IV antihypertensives for systolic blood pressure of 180 and diastolic blood pressure of 100 Qualifiers: Hypertension type: essential hypertension Qualified Code(s): I10 - Essential (primary) hypertension (4) Tobacco abuse Current Visit: No Status: Chronic (5) Hyperkalemia Current Visit: Yes Status: Acute Assessment and plan: mild hyperkalemia most likely secondary to both will hold for now and continue to monitor renal panel - Time Spent With Patient Total time spent is greater than 50% in coordination of care (as documented) at patient's floor/unit and/or counseling patient:
[2018-09-01] MEDS ORDERED: Insulin Human Regular 5 UNIT in 0.9 % Sodium Chloride 10 ML IV ONE (17:41)
[2018-09-01] MEDS ORDERED: Ondansetron 4 MG/2 ML VIAL IVP PRN (19:23)
[2018-09-01] MEDS ORDERED: Naloxone 0.4 MG/ML INJ IVP PRN (19:23)
[2018-09-01] MEDS ORDERED: *HR* HYDROcodone/Acet 5/325 mg TABLET PO PRN (19:23)
[2018-09-01] MEDS ORDERED: Acetaminophen 325 MG TABLET PO PRN (19:23)
[2018-09-01] MEDS ORDERED: Ipratropium Neb 0.5 MG NEBULIZER IH PRN (20:44)
[2018-09-01] MEDS: Azithromycin 500 MG in D5% in Water 250 ML IVPB SCH (20:45)
[2018-09-01] MEDS: Ipratropium/Albuterol Neb 3 ML IH SCH (20:47)
[2018-09-01] MEDS ORDERED: Dextrose Gel 15 GM/37.5 ML TUBE PO PRN ×2 (20:47)
[2018-09-01] MEDS ORDERED: D5% in Water 1,000 ML IVC PRN (20:47)
[2018-09-01] MEDS ORDERED: *HR* Dextrose 50 % in Water (Syg) 50 ML SYRINGE IVP PRN (20:47)
[2018-09-01] MEDS ORDERED: Insulin LISPRO 300 UNITS/3 ML VIAL SQ SCH (21:00)
[2018-09-01] MEDS: Aspirin Enteric Coated 81 MG Tablet PO SCH (21:53)
[2018-09-01] MEDS: Budesonide/Formoterol 160/4.5 1 PUFF INH IH SCH (22:50)
[2018-09-02] MEDS: MethylPREDNISolone 40 MG/ML VIAL IVP SCH ×3 (00:47→17:12)
[2018-09-02 02:06] LABS: Prothrombin Time 10.7 Seconds (9.4-12.1)
[2018-09-02 02:09] LABS: Activated Partial Thrombo Time 31.7 Seconds (26.0-36.0)
[2018-09-02 02:10] LABS: Alanine Aminotransferase 7 Units/L (7-52); Albumin 3.6 g/dL (3.5-5.7); Albumin/Globulin Ratio 1.4 (1.1-2.2); Alkaline Phosphatase 66 Units/L (34-104); Aspartate Amino Transferase 8 Units/L (13-39); BUN/Creatinine Ratio 21 (6-26); Bilirubin,Total 0.6 mg/dL (0.3-1.0); Blood Urea Nitrogen 16 mg/dL (8-23); Calcium 8.9 mg/dL (8.6-10.3); Carbon Dioxide 31 mEq/L (23-29); Chloride 97 mEq/L (98-107); Chol/HDL Ratio 2.6 (0-4.9); Cholesterol 156 mg/dL (< 200); Globulin 2.5 g/dL (2.4-3.5); Glucose 362 mg/dL (70-105); HDL Cholesterol 60 mg/dL (40-59); LDL Cholesterol,Calculated 83 mg/dL (0-99); Magnesium 1.7 mg/dL (1.6-2.6); Osmolality,Calculated 292 (280-300); Phosphorous 3.4 mg/dL (2.7-4.5); Potassium 5.2 mEq/L (3.5-5.1); Sodium 133 mEq/L (136-145); Total Protein 6.1 g/dL (6.4-8.9); Triglycerides 64 mg/dL (< 150); eGFR For African Americans > 60 (> 60); eGFR For Non-African Americans > 60 (> 60)
[2018-09-02] MEDS: Ipratropium/Albuterol Neb 3 ML IH SCH ×4 (04:22→22:13)
[2018-09-02] MEDS ORDERED: 0.9 % Sodium Chloride 1,000 ML IVC SCH (06:30)
[2018-09-02] MEDS ORDERED: Insulin LISPRO 300 UNITS/3 ML VIAL SQ SCH (07:30)
[2018-09-02] MEDS ORDERED: Albuterol 2.5 MG/3 ML NEBULIZER IH PRN (08:00)
[2018-09-02] MEDS: Aspirin Enteric Coated 81 MG Tablet PO SCH (08:32)
[2018-09-02] MEDS: Nicotine 14 MG PATCH.TD24 TD SCH (08:32)
[2018-09-02 08:34] LABS: Estimated Average Glucose 289 mg/dl; Hemoglobin A1C 11.7 %
[2018-09-02] MEDS ORDERED: Tiotropium 18 MCG inhalation IH SCH (09:00)
[2018-09-02] MEDS ORDERED: *HR* Pioglitazone 45 MG TABLET PO SCH (09:00)
[2018-09-02] MEDS: Insulin DETEMIR 100 UNIT/ML X5UNITS SQ SCH ×2 (10:34→20:40)
--- NOTE | 2018-09-02 10:53 | Internal Med Progress Note ---
Hospitalist Progress Note - Encounter Date of Encounter: 09/02/18 Time of Encounter: 09:30 - Subjective Interval History: Mr. Ashton is a 78-year-old male with history of COPD on 3 L nasal cannula, HTN, HLD, DM2 and chronic tobacco dependence patient presented to ER with progressively worsening shortness of breath over the last 5 days. He also complained about cough with yellowish expectoration. He denied any chest pain. Patient was hypoxemic on arrival to the ER and in respiratory distress. His chest x-ray did not show any acute infiltrates/consolidations. Patient was admitted in the hospital and started him on IV steroids and empirical antibiotic. Patient stated he is feeling little better today. Still having moderate to severe shortness of breath and dyspnea on exertion - Exam Vitals: Temp Pulse Resp BP Pulse Ox 97.6 F 85 16 134/65 95 09/02/18 10:33 09/02/18 10:33 09/02/18 10:33 09/02/18 10:33 09/02/18 10:33 Exam: Gen: Alert, awake, Oriented to time,place and person Chest: Diminished breath sounds B/L, moderate to severe wheezing, No crackles, No rales Heart: S1S2+ RRR No murmurs Abd: Soft, NT, BS +, No organomegaly Ext: No edema, pulses are palpable, No calf tenderness Neuro : No acute focal neuro deficits noticed Skin: No rash. - Assessment and Plan (1) Acute exacerbation of chronic obstructive airways disease Current Visit: Yes Status: Acute Assessment and Plan: Still have diffuse wheezing cont high dose IV steroids.. changed to Q8hr cont frequent bronchodilator therapy cont o2.. Resumed home Symbicort Patient does need to stay in the hospital more than 2 midnights due to his complex medical problems. So we will change him to full admission today. I did review my colleague Dr. Avery's H & P including HPI, PMH, PSH, FH, SH, and ROS no changes noticed (2) Acute bronchitis Current Visit: Yes Status: Acute Assessment and Plan: Mostly bacterial due to purulent bronchitis on IV rocephin + Azithromycin (3) HTN (hypertension) Current Visit: No Status: Chronic Assessment and Plan: Blood pressure well controlled with current home medications (4) Diabetes mellitus Current Visit: No Status: Chronic Assessment and Plan: HbA1C -11.7 on ADA diet on ISS + added Levemir (5) Tobacco abuse Current Visit: No Status: Chronic Assessment and Plan: Counseled to quit smoking placed on nicotine patch (6) Hyperkalemia Current Visit: Yes Status: Acute Assessment and Plan: mild hyperkalemia most likely secondary to dehydration received IVF Cont close monitoring on Albuterol Nebs (7) Chronic respiratory failure with hypoxia Current Visit: Yes Status: Acute - Time Spent with Patient Total time spent is greater than 50% in coordination of care (as documented) at patient's floor/unit and/or counseling patient: Internal Medicine: Result - Labs CBC & Chem 7: 09/01/18 15:41 09/02/18 01:32 Labs: Short CBC 09/01/18 Range/Units 15:41 WBC 9.0 (4.3-11.1) K/mcL Hgb 14.3 (12.9-16.9) g/dL Hct 45.6 (37.5-50.1) % Plt Count 317 (140-400) K/mcL Neutrophils # 6.9 (1.6-8.9) K/mcL BMP 09/01/18 09/02/18 15:41 01:32 Sodium 136 133 L Potassium 5.2 H 5.2 H Chloride 97 L 97 L Carbon Dioxide 33 H 31 H BUN 15 16 Creatinine 0.67 L 0.77 Glucose 446 H 362 H Calcium 9.3 8.9 Cardiac Enzymes 09/01/18 09/01/18 09/02/18 Range/Units 15:41 21:41 01:32 Troponin I < 0.03 < 0.03 < 0.03 (< 0.04) ng/mL 09/02/18 Range/Units 07:44 Troponin I < 0.03 (< 0.04) ng/mL Liver Function 09/02/18 Range/Units 01:32 Total Bilirubin 0.6 (0.3-1.0) mg/dL AST 8 L (13-39) Units/L ALT 7 (7-52) Units/L Alkaline Phosphatase 66 (34-104) Units/L Albumin 3.6 (3.5-5.7) g/dL - ABG Interpretation ABG results: PT/INR, D-dimer PT 10.7 Seconds (9.4-12.1) 06/07/19 01:32 - Impressions Impressions Chest X-Ray 09/01/18 15:21 IMPRESSION: Emphysema. Unchanged prominent central pulmonary arteries. No acute cardiopulmonary disease. Moderate hiatal hernia. D/ / Garfield Turcios MD / Garfield Turcios MD Interpreting Provider: Garfield Turcios MD Consult Discharge Plan - Plan Referrals: Rich Trujillo DO [Primary Care Provider] - (2) Acute bronchitis Qualifiers: Bronchitis organism: unspecified organism Qualified Code(s): J20.9 - Acute bronchitis, unspecified (3) HTN (hypertension) Qualifiers: Hypertension type: essential hypertension Qualified Code(s): I10 - Essential (primary) hypertension (4) Diabetes mellitus Qualifiers: Diabetes mellitus type: type 2 Diabetes mellitus half-way insulin use: unspecified half-way insulin use status Diabetes mellitus complication status: with unspecified complications
[2018-09-02] MEDS: Budesonide/Formoterol 160/4.5 1 PUFF INH IH SCH ×2 (11:03→21:10)
[2018-09-02] MEDS: Insulin LISPRO 300 UNITS/3 ML VIAL SQ SCH ×3 (11:58→20:41)
--- NOTE | 2018-09-02 14:39 | Electrocardiograph Report ---
[address] [address] Test Date: 2018-09-01 Pat Name: Rich Bishop Department: 104 Room: 3B16 Gender: M Registered Nurse Fetal: Fredrick : 1940 Requested By: Babak Adrian Order Number: [id number] Reading MD: Bird Rios Measurements Intervals [place] Rate: 107 P: 78 RI: 124 QRS: 93 QRSD: 90 T: 63 QT: 303 QTc: 366 Interpretive Statements SINUS TACHYCARDIA WITH OCCASIONAL SUPRAVENTRICULAR PREMATURE COMPLEXES BORDERLINE RIGHT AXIS DEVIATION ABNORMAL RHYTHM ECG Electronically Signed On 09-02-2018 14:38:13 EDT by Bird Rios
[2018-09-02] MEDS: cefTRIAXone 1,000 MG in Water for inj. (sterile) 20 ML 10 ML IVP SCH (17:12)
--- NOTE | 2018-09-02 17:51 | Electrocardiograph Report ---
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
[2018-09-02] MEDS: Azithromycin 500 MG in D5% in Water 250 ML IVPB SCH (20:37)
[2018-09-03] MEDS: MethylPREDNISolone 40 MG/ML VIAL IVP SCH ×4 (00:57→22:57)
[2018-09-03 01:50] LABS: Basophils % 0.1 %; Hematocrit 38.9 % (37.5-50.1); Hemoglobin 12.3 g/dL (12.9-16.9); Immature Granulocytes % 0.6 % (0-4); Lymphocytes # 0.4 K/mcL (0.6-4.6); Lymphocytes % 3.2 %; Mean Corpuscular HGB Conc 31.6 g/dL (31.6-35.5); Mean Corpuscular Hemoglobin 28.7 pg (28.0-33.3); Mean Corpuscular Volume 90.7 fL (83.0-100.0); Mean Platelet Volume 10.1 fL (9.4-12.4); Monocytes # 0.4 K/mcL (0.0-1.3); Monocytes % 3.1 %; Neutrophils # 12.9 K/mcL (1.6-8.9); Nucleated Red Blood Cells 0.1 /100 WBC (0); Platelet Count 262 K/mcL (140-400); Red Blood Count 4.29 M/mcL (4.19-5.50); Red Cell Distribution Width 14.5 % (11.5-14.5); White Blood Count 13.9 K/mcL (4.3-11.1)
[2018-09-03 02:12] LABS: Alanine Aminotransferase 7 Units/L (7-52); Albumin 3.4 g/dL (3.5-5.7); Albumin/Globulin Ratio 1.5 (1.1-2.2); Alkaline Phosphatase 55 Units/L (34-104); Aspartate Amino Transferase 8 Units/L (13-39); BUN/Creatinine Ratio 39 (6-26); Bilirubin,Total 0.4 mg/dL (0.3-1.0); Blood Urea Nitrogen 30 mg/dL (8-23); Calcium 8.7 mg/dL (8.6-10.3); Carbon Dioxide 29 mEq/L (23-29); Chloride 95 mEq/L (98-107); Globulin 2.2 g/dL (2.4-3.5); Glucose 492 mg/dL (70-105); Magnesium 1.7 mg/dL (1.6-2.6); Osmolality,Calculated 300 (280-300); Sodium 131 mEq/L (136-145); Total Protein 5.6 g/dL (6.4-8.9); eGFR For African Americans > 60 (> 60); eGFR For Non-African Americans > 60 (> 60)
[2018-09-03] MEDS: Ipratropium/Albuterol Neb 3 ML IH SCH ×4 (04:25→22:09)
[2018-09-03] MEDS: cefTRIAXone 1,000 MG in Water for inj. (sterile) 20 ML 10 ML IVP SCH (08:40)
[2018-09-03] MEDS: Aspirin Enteric Coated 81 MG Tablet PO SCH (08:45)
[2018-09-03] MEDS: Nicotine 14 MG PATCH.TD24 TD SCH (08:46)
[2018-09-03] MEDS: Insulin LISPRO 300 UNITS/3 ML VIAL SQ SCH ×4 (08:47→20:22)
[2018-09-03] MEDS: Insulin DETEMIR 100 UNIT/ML X5UNITS SQ SCH ×2 (08:50→20:18)
--- NOTE | 2018-09-03 09:09 | Internal Med Progress Note ---
Hospitalist Progress Note - Encounter Date of Encounter: 09/03/18 Time of Encounter: 11:00 - Subjective Interval History: Patient is a 78-year-old male with past medical history significant for O2 dependent COPD and chronic tobacco dependence who presented due to acute on chronic respiratory failure secondary to COPD exacerbation. Patient with decrease air movement on auscultation but not in any respiratory distress - Exam Vitals: Temp Pulse Resp BP Pulse Ox 98.3 F 97 16 142/86 96 09/03/18 08:27 09/03/18 08:27 09/03/18 08:27 09/03/18 08:27 09/03/18 08:27 Exam: Gen.: Nonacute distress, alert and oriented 3 ENT: Mucosal membranes moist Respiratory: Decreased airflow bilaterally Cardiovascular: Normal S1 and S2 regular rate rhythm no murmurs rubs or gallops Abdomen: Soft, nontender and nondistended with positive bowel sounds Extremities: No lower extremity edema Skin: Normal color - Assessment and Plan (1) Acute exacerbation of chronic obstructive airways disease Current Visit: Yes Status: Acute Assessment and Plan: Still have diffuse wheezing Chest x-ray showed diffuse emphysema with no focal infiltrates We will continue scheduled dual nebs and IV Solu-Medrol in addition to IV azithromycin (2) Acute bronchitis Current Visit: Yes Status: Acute Assessment and Plan: Mostly bacterial due to purulent bronchitis on IV rocephin + Azithromycin (3) Chronic respiratory failure with hypoxia Current Visit: Yes Status: Acute Assessment and Plan: Patient on baseline O2 at 3 L nasal cannula (4) HTN (hypertension) Current Visit: No Status: Chronic Assessment and Plan: Continue home dose of beta [place] (5) Diabetes mellitus Current Visit: No Status: Chronic Assessment and Plan: HbA1C -11.7 Continue basal insulin and coverage with sliding-scale insulin (6) Hyperkalemia Current Visit: Yes Status: Acute Assessment and Plan: Improving; mild hyperkalemia most likely secondary to dehydration Cont close monitoring on Albuterol Nebs (7) Tobacco abuse Current Visit: No Status: Chronic Assessment and Plan: Nicotine replacements - Time Spent with Patient Total time spent is greater than 50% in coordination of care (as documented) at patient's floor/unit and/or counseling patient: Internal Medicine: Result - Labs CBC & Chem 7: 09/03/18 00:49 09/03/18 00:49 Labs: Short CBC 09/03/18 Range/Units 00:49 WBC 13.9 H D (4.3-11.1) K/mcL Hgb 12.3 L D (12.9-16.9) g/dL Hct 38.9 (37.5-50.1) % Plt Count 262 (140-400) K/mcL Neutrophils # 12.9 H (1.6-8.9) K/mcL BMP 09/03/18 00:49 Sodium 131 L Potassium 5.0 Chloride 95 L Carbon Dioxide 29 BUN 30 H Creatinine 0.77 Glucose 492 H Calcium 8.7 Liver Function 09/03/18 Range/Units 00:49 Total Bilirubin 0.4 (0.3-1.0) mg/dL AST 8 L (13-39) Units/L ALT 7 (7-52) Units/L Alkaline Phosphatase 55 (34-104) Units/L Albumin 3.4 L (3.5-5.7) g/dL - ABG Interpretation ABG results: PT/INR, D-dimer PT 10.7 Seconds (9.4-12.1) 09/02/18 01:32 Consult Discharge Plan - Plan Referrals: Rich Trujillo DO [Primary Care Provider] - (2) Acute bronchitis Qualifiers: Bronchitis organism: unspecified organism Qualified Code(s): J20.9 - Acute bronchitis, unspecified (4) HTN (hypertension) Qualifiers: Hypertension type: essential hypertension Qualified Code(s): I10 - Essential (primary) hypertension (5) Diabetes mellitus Qualifiers: Diabetes mellitus type: type 2 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
[2018-09-03] MEDS: Budesonide/Formoterol 160/4.5 1 PUFF INH IH SCH ×2 (10:20→22:09)
[2018-09-03] MEDS: Azithromycin 500 MG in D5% in Water 250 ML IVPB SCH (20:18)
[2018-09-04] MEDS: Ipratropium/Albuterol Neb 3 ML IH SCH ×4 (04:04→23:32)
[2018-09-04] MEDS: MethylPREDNISolone 40 MG/ML VIAL IVP SCH ×3 (08:11→23:01)
[2018-09-04] MEDS: cefTRIAXone 1,000 MG in Water for inj. (sterile) 20 ML 10 ML IVP SCH (08:12)
[2018-09-04] MEDS: Aspirin Enteric Coated 81 MG Tablet PO SCH (08:13)
[2018-09-04] MEDS: Nicotine 14 MG PATCH.TD24 TD SCH (08:14)
[2018-09-04] MEDS: Insulin LISPRO 300 UNITS/3 ML VIAL SQ SCH ×4 (08:14→20:03)
[2018-09-04 10:07] LABS: Basophils % 0.1 %; Hematocrit 41.1 % (37.5-50.1); Hemoglobin 12.8 g/dL (12.9-16.9); Immature Granulocytes % 1.3 % (0-4); Lymphocytes # 0.6 K/mcL (0.6-4.6); Lymphocytes % 4.5 %; Mean Corpuscular HGB Conc 31.1 g/dL (31.6-35.5); Mean Corpuscular Hemoglobin 28.3 pg (28.0-33.3); Mean Corpuscular Volume 90.9 fL (83.0-100.0); Mean Platelet Volume 9.8 fL (9.4-12.4); Monocytes # 0.4 K/mcL (0.0-1.3); Monocytes % 3.2 %; Neutrophils # 12.6 K/mcL (1.6-8.9); Platelet Count 263 K/mcL (140-400); Red Blood Count 4.52 M/mcL (4.19-5.50); Red Cell Distribution Width 14.6 % (11.5-14.5); Segmented Neutrophils % 90.9 %; White Blood Count 13.9 K/mcL (4.3-11.1)
[2018-09-04] MEDS: Insulin DETEMIR 100 UNIT/ML X5UNITS SQ SCH ×2 (10:20→20:02)
[2018-09-04 10:30] LABS: BUN/Creatinine Ratio 49 (6-26); Blood Urea Nitrogen 38 mg/dL (8-23); Calcium 8.6 mg/dL (8.6-10.3); Carbon Dioxide 32 mEq/L (23-29); Chloride 94 mEq/L (98-107); Glucose 393 mg/dL (70-105); Osmolality,Calculated 299 (280-300); Potassium 4.4 mEq/L (3.5-5.1); Sodium 132 mEq/L (136-145); eGFR For African Americans > 60 (> 60); eGFR For Non-African Americans > 60 (> 60)
[2018-09-04] MEDS: Budesonide/Formoterol 160/4.5 1 PUFF INH IH SCH ×2 (10:36→23:32)
--- NOTE | 2018-09-04 16:09 | Internal Med Progress Note ---
Hospitalist Progress Note - Encounter Date of Encounter: 09/04/18 Time of Encounter: 11:00 - Subjective Interval History: Patient is a 78-year-old male with past medical history significant for O2 dependent COPD and chronic tobacco dependence who presented due to acute on chronic respiratory failure secondary to COPD exacerbation. Patient without any improvement in air movement on auscultation but not in any respiratory distress - Exam Vitals: Temp Pulse Resp BP Pulse Ox 98.2 F 85 16 139/65 94 09/04/18 14:56 09/04/18 14:56 09/04/18 15:20 09/04/18 14:56 09/04/18 15:20 Exam: Gen.: Nonacute distress, alert and oriented 3 Skin: Normal color - Assessment and Plan (1) Acute exacerbation of chronic obstructive airways disease Current Visit: Yes Status: Acute Assessment and Plan: Patient still not with good airflow movement on auscultation Chest x-ray showed diffuse emphysema with no focal infiltrates We will continue scheduled dual nebs and IV Solu-Medrol in addition to IV azithromycin (2) Acute bronchitis Current Visit: Yes Status: Acute Assessment and Plan: Mostly bacterial due to purulent bronchitis on IV rocephin + Azithromycin (3) Chronic respiratory failure with hypoxia Current Visit: Yes Status: Acute Assessment and Plan: Patient on baseline O2 at 3 L nasal cannula (4) HTN (hypertension) Current Visit: No Status: Chronic Assessment and Plan: Continue home dose of beta [place] (5) Diabetes mellitus Current Visit: No Status: Chronic Assessment and Plan: HbA1C -11.7 Continue basal insulin and coverage with sliding-scale insulin (6) Hyperkalemia Current Visit: Yes Status: Resolved Assessment and Plan: Resolved; continue to monitor (7) Tobacco abuse Current Visit: No Status: Chronic Assessment and Plan: Nicotine replacements - Time Spent with Patient Total time spent is greater than 50% in coordination of care (as documented) at patient's floor/unit and/or counseling patient: Internal Medicine: Result - Labs CBC & Chem 7: 09/04/18 09:23 09/04/18 09:23 Labs: Short CBC 09/04/18 Range/Units 09:23 WBC 13.9 H (4.3-11.1) K/mcL Hgb 12.8 L (12.9-16.9) g/dL Hct 41.1 (37.5-50.1) % Plt Count 263 (140-400) K/mcL Neutrophils # 12.6 H (1.6-8.9) K/mcL BMP 09/04/18 09:23 Sodium 132 L Potassium 4.4 Chloride 94 L Carbon Dioxide 32 H BUN 38 H Creatinine 0.77 Glucose 393 H Calcium 8.6 - ABG Interpretation ABG results: PT/INR, D-dimer PT 10.7 Seconds (9.4-12.1) 09/02/18 01:32 Consult Discharge Plan - Plan Referrals: Rich Trujillo DO [Primary Care Provider] - (2) Acute bronchitis Qualifiers: Bronchitis organism: unspecified organism Qualified Code(s): J20.9 - Acute bronchitis, unspecified (4) HTN (hypertension) Qualifiers: Hypertension type: essential hypertension Qualified Code(s): I10 - Essential (primary) hypertension (5) Diabetes mellitus Qualifiers: Diabetes mellitus type: type 2 Diabetes mellitus alf insulin use: unspecified alf insulin use status Diabetes mellitus complication status: with unspecified complications
[2018-09-04] MEDS: Azithromycin 500 MG in D5% in Water 250 ML IVPB SCH (20:02)
[2018-09-05] MEDS: Ipratropium/Albuterol Neb 3 ML IH SCH ×2 (04:14→11:18)
[2018-09-05 07:42] VITALS: BP 116/67
[2018-09-05] MEDS: Insulin DETEMIR 100 UNIT/ML X5UNITS SQ SCH (08:18)
[2018-09-05] MEDS: cefTRIAXone 1,000 MG in Water for inj. (sterile) 20 ML 10 ML IVP SCH (08:18)
[2018-09-05] MEDS: Insulin LISPRO 300 UNITS/3 ML VIAL SQ SCH (08:19)
[2018-09-05] MEDS: MethylPREDNISolone 40 MG/ML VIAL IVP SCH (08:19)
[2018-09-05] MEDS: Nicotine 14 MG PATCH.TD24 TD SCH (08:19)
[2018-09-05] MEDS: Aspirin Enteric Coated 81 MG Tablet PO SCH (08:19)
--- NOTE | 2018-09-05 11:04 | Discharge Summary ---
- NOTES TO OUTPATIENT PROVIDER Notes to Outpatient Provider: f/u with PCP in one week. Please quit smoking. f/u with Pulmonary in 2 weeks. Orders not resulted at time of discharge: Pending orders 09/02/18 10:57 EKG [ECG 12 lead ECG] [ECG] Stat Date of Encounter: 09/05/18 Time of Encounter: 10:30 - Discharge Diagnosis (1) Acute bronchitis Priority: Primary Status: Acute Qualifiers: Bronchitis organism: unspecified organism Qualified Code(s): J20.9 - Acute bronchitis, unspecified (2) Acute exacerbation of chronic obstructive airways disease Priority: Primary Status: Acute (3) HTN (hypertension) Priority: Secondary Status: Chronic Qualifiers: Hypertension type: essential hypertension Qualified Code(s): I10 - Essential (primary) hypertension (4) Diabetes mellitus Priority: Secondary Status: Chronic Qualifiers: Diabetes mellitus type: type 2 Diabetes mellitus assisted insulin use: unspecified 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 Ashton is a 78-year-old male with history of COPD on 3 L nasal cannula, HTN, HLD, DM2 and chronic tobacco dependence patient presented to ER with progressively worsening shortness of breath over the last 5 days. He also c omplained about cough with yellowish expectoration. He denied any chest pain. Patient was hypoxemic on arrival to the ER and in respiratory distress. His chest x-ray did not show any acute infiltrates/consolidations. Patient was admitted in the hospital and started him on IV steroids and empirical antibiotic Rocephin + Azithromycin. Patient symptoms started improving slowly. He required high-dose IV steroids 3-4 days. Pt his breathing seems to be back to baseline today Patient stated he is feeling little better today. I did direct care counselor the pt to quit smoking. Also since he does have advanced C OPD, recommended him to f.u with Pulmonary as an out pt. - Time Spent with Patient Total time spent providing and/or coordinating discharge services: - Discharge Medications Prescriptions: New Nicotine Patch [Nicoderm] 14 mg TD DAILY #30 patch.td24 predniSONE [PredniSONE] 40 mg PO DAILY #10 tablet Continued Aspirin Enteric Coated [Aspirin EC] 81 mg PO DAILY Metoprolol [Lopressor] 12.5 mg PO BID Omeprazole [PriLOSEC] 40 mg PO DAILY Glimepiride [Amaryl] 4 mg PO DAILY Albuterol Sulfate [Proair Hfa] 2 puff IH Q4H PRN PRN Reason: Wheezing Pioglitazone HCl [Actos] 45 mg PO DAILY Metformin HCl 1,000 mg PO BID Budesonide/Formoterol 160/4.5 [Symbicort 160/4.5] 2 puff IH BIDR Ipratropium/Albuterol Neb [Duoneb] 3 ml IH Q4-6H PRN PRN Reason: Shortness Of Breath Losartan Potassium 25 mg PO DAILY Home Medications: Aspirin Enteric Coated [Aspirin EC] 81 mg PO DAILY 11/27/16 [History] Glimepiride [Amaryl] 4 mg PO DAILY 11/27/16 [History] Metoprolol [Lopressor] 12.5 mg PO BID 11/27/16 [History] Omeprazole [PriLOSEC] 40 mg PO DAILY 11/27/16 [History] Albuterol Sulfate [Proair Hfa] 2 puff IH Q4H PRN 07/06/17 [History] Pioglitazone HCl [Actos] 45 mg PO DAILY 09/25/17 [History] Metformin HCl 1,000 mg PO BID 11/29/17 [History] Budesonide/Formoterol 160/4.5 [Symbicort 160/4.5] 2 puff IH BIDR 09/01/18 [History] Ipratropium/Albuterol Neb [Duoneb] 3 ml IH Q4-6H PRN 09/02/18 [History] Losartan Potassium 25 mg PO DAILY 09/02/18 [History] Nicotine Patch [Nicoderm] 14 mg TD DAILY #30 patch.td24 09/05/18 [Rx] predniSONE [PredniSONE] 40 mg PO DAILY #10 tablet 09/05/18 [Rx] Allergies/Adverse Reactions: Allergy/AdvReac Type Severity Reaction Status Date / Time No Known Allergies Allergy Verified 09/02/18 18:38 Date of admission: 09/02/18 09:41 Primary care physician: Rich Trujillo DO Consults: 09/01/18 19:16 Consult to Nurse Navigator [CONS] Routine Comment: COPD - Constitutional Vitals: Temp Pulse Resp BP Pulse Ox 97.6 F 85 16 116/67 97 09/05/18 07:39 09/05/18 07:39 09/05/18 07:39 09/05/18 07:39 09/05/18 07:39 General appearance: Present: cooperative, A&O X 3, no acute distress, answers questions appropriately Exam: Gen: Alert, awake, Oriented to time,place and person Chest: Diminished breath sounds B/L, moderate wheezing, No crackles, No rales Heart: S1S2+ RRR No murmurs Abd: Soft, NT, BS +, No organomegaly Ext: No edema, pulses are palpable, No calf tenderness Neuro : No acute focal neuro deficits noticed Skin: No rash. - Patient Status Disposition: Home, Self-Care Condition: Good Overall status at discharge: patient is back to baseline - Discharge Instructions Follow Up With: Rich Trujillo DO [Primary Care Provider] - Ryann Suarez MD [Partnered Physician] - - Diet and Activity Activity: increase activity as tolerated Diet: low salt diet
[2018-09-05] MEDS: Budesonide/Formoterol 160/4.5 1 PUFF INH IH SCH (11:15)
== END 2018-09-05 12:10 | disposition home or self-care (01) | DRG 191 ==
LOC: EMEROOARM 14:53 → 3BNU 14:53 → SUATTDRO 09-02 09:41
PROVIDERS: ADMIT Internal Medicine Nephrology; ATTEND Family Medicine

== ENCOUNTER 2018-11-06 14:51 | Inpatient (IN) ==
[2018-11-06] MEDS ORDERED: predniSONE 20 MG TABLET PO ONE (15:15)
[2018-11-06] MEDS ORDERED: Ipratropium/Albuterol Neb 3 ML IH ONE (15:15)
--- NOTE | 2018-11-06 15:18 | Emergency Department Note ---
Disposition Clinical Impression: COPD exacerbation, Hyperglycemia Disposition: Admitted As Inpatient Condition: Fair Forms: ED Satisfaction Letter Time of Disposition: 16:11 SOB HPI - General Chief Complaint: ED Shortness of Breath/Dyspnea Stated Complaint: MISA Time Seen by Provider: 11/06/18 15:08 Source: patient Limitations: no limitations Nursing Notes Reviewed: Yes Vital Signs Reviewed: Yes - History of Present Illness Pt Subjective Complaint: shortness of breath, cough Onset (ago): day(s) Consistency/Duration: constant Improves with: bronchodilators Worsens with: other (Worse in the morning) Known history of: COPD Associated symptoms: Reports: chest pain, cough, wheezing, sputum production Treatment prior to arrival: oxygen, bronchodilator Cough present: Yes Cough Description: Productive Cough Frequency: Intermittent Sputum Color: Brown - Related Data Home oxygen amount: 3 liters Home Medications Medication Instructions Recorded Confirmed Aspirin Enteric Coated [Aspirin EC] 81 mg PO DAILY 11/27/16 09/14/18 Glimepiride [Amaryl] 4 mg PO DAILY 11/27/16 09/14/18 Metoprolol [Lopressor] 12.5 mg PO BID 11/27/16 09/14/18 Omeprazole [PriLOSEC] 40 mg PO DAILY 11/27/16 09/14/18 Albuterol Sulfate [Proair Hfa] 2 puff IH Q4H PRN 07/06/17 09/14/18 Pioglitazone HCl [Actos] 45 mg PO DAILY 09/25/17 09/14/18 Metformin HCl 1,000 mg PO BID 11/29/17 09/14/18 Budesonide/Formoterol 160/4.5 2 puff IH BIDR 09/01/18 09/14/18 [Symbicort 160/4.5] Ipratropium/Albuterol Neb [Duoneb] 3 ml IH Q4-6H PRN 09/02/18 09/14/18 Losartan Potassium 25 mg PO DAILY 09/02/18 09/14/18 Previous Rx's Medication Instructions Recorded Nicotine Patch [Nicoderm] 14 mg TD DAILY #30 patch.td24 09/05/18 predniSONE [PredniSONE] 40 mg PO DAILY #10 tablet 09/05/18 Allergies Allergy/AdvReac Type Severity Reaction Status Date / Time No Known Allergies Allergy Verified 09/14/18 10:35 All systems ED: reviewed and negative except as stated. Constitutional: Reports: as per HPI Eyes: Reports: as per HPI ENT ED: Reports: as per HPI Cardiovascular: Reports: chest pain Respiratory: Reports: cough, dyspnea, wheezes Gastrointestinal: Reports: as per HPI Genitourinary: Reports: as per HPI Musculoskeletal: Reports: as per HPI Integumentary: Reports: as per HPI Neurological: Reports: as per HPI Psychiatric: Reports: as per HPI Endocrine: Reports: as per HPI Hematological/Lymphatic: Reports: as per HPI Allergic/Immunologic: Reports: as per HPI Past Medical History - Past Medical History Source: old records reviewed Medical history: Reports: COPD, diabetes, GERD, hypertension, other Surgical history: Reports: herniorrhaphy, orthopedic, other Psychiatric history: Reports: other - Social History Smoking Status: Current every day smoker Smokeless Tobacco Status: No Alcohol use: Reports: occasionally Drug use: Reports: none Physical Exam - General Limitations: no limitations General appearance: alert - Head Head exam: atraumatic - Eye Eye exam: Present: normal appearance - ENT ENT exam: normal exam - Neck Neck exam: Present: normal inspection, full ROM - Chest Chest inspection: Present: normal inspection, symmetric chest wall rise - Respiratory Respiratory exam: Present: wheezes, other (Diffuse expiratory wheezes. Mild prolongation of the expiratory phase. No accessory muscle use.) - Cardiovascular Cardiovascular exam: Present: regular rate, tachycardia - Abdominal Exam Abdominal exam: Present: soft, Non-Tender - Rectal Exam Rectal exam: Present: deferred - Extremities Exam Extremities exam: Present: normal inspection - Neurological Exam Neurological exam: Present: alert, oriented X3, CN II-XII intact - Psychiatric Psychiatric exam: Present: normal affect, normal mood - Skin Skin exam: Present: warm, dry, intact Course Course Narrative: Patient who is an active smoker oxygen dependent presents with dyspnea and cough. Evaluation for COPD exacerbation versus pneumonia versus ACS initiated. Neb therapy offered. Oral dose of prednisone given. Vital Signs Temperature 98.2 F 11/06/18 14:57 Pulse Rate 108 11/06/18 14:57 Respiratory Rate 20 11/06/18 14:57 Blood Pressure 110/67 11/06/18 14:57 O2 Sat by Pulse Oximetry 96 11/06/18 14:57 Temperature 98.2 F 11/06/18 14:57 Pulse Rate 108 11/06/18 14:57 Respiratory Rate 15 11/06/18 15:50 Blood Pressure 110/67 11/06/18 14:57 O2 Sat by Pulse Oximetry 100 11/06/18 15:50 Oxygen Delivery Oxygen Delivery Nasal Cannula Shortness of Breath/Dyspnea - Medical Records Medical records reviewed: Yes I reviewed the patient's medical records. - Lab Data Lab results reviewed: Yes I reviewed the patient's lab results. Result diagrams: 11/06/18 15:13 11/06/18 15:13 Lab Results 11/06/18 11/06/18 11/06/18 Range/Units 15:13 15:13 15:13 WBC 8.1 (4.3-11.1) K/mcL RBC 4.97 (4.19-5.50) M/mcL Hgb 14.6 (12.9-16.9) g/dL Hct 45.8 (37.5-50.1) % MCV 92.2 (83.0-100.0) fL MCH 29.4 (28.0-33.3) pg MCHC 31.9 (31.6-35.5) g/dL RDW 14.1 (11.5-14.5) % Plt Count 351 (140-400) K/mcL MPV 9.8 (9.4-12.4) fL Immature Gran % 0.7 (0-4) % Seg Neutrophils % 76.1 % Lymphocytes % 12.1 % Monocytes % 7.7 % Eosinophils % 2.5 % Basophils % 0.9 % Neutrophils # 6.2 (1.6-8.9) K/mcL Lymphocytes # 1.0 (0.6-4.6) K/mcL Monocytes # 0.6 (0.0-1.3) K/mcL Eosinophils # 0.2 (0.0-0.6) K/mcL Basophils # 0.1 (0.0-0.2) K/mcL PT 11.1 (9.4-12.1) Seconds INR 1.0 Sodium 134 L (136-145) mEq/L Potassium 4.4 (3.5-5.1) mEq/L Chloride 93 L (98-107) mEq/L Carbon Dioxide 33 H (23-29) mEq/L BUN 13 (8-23) mg/dL Creatinine 0.70 (0.70-1.30) mg/dL Est GFR ( Amer) > 60 (> 60) Est GFR (Non-Af Amer) > 60 (> 60) BUN/Creatinine Ratio 19 (6-26) Glucose 481 H (70-105) mg/dL Calculated Osmolality 299 (280-300) Calcium 9.0 (8.6-10.3) mg/dL Total Bilirubin 0.6 (0.3-1.0) mg/dL Direct Bilirubin 0.1 (0.0-0.2) mg/dL Indirect Bilirubin 0.5 (0.0-1.2) mg/dL AST 9 L (13-39) Units/L ALT 8 (7-52) Units/L Alkaline Phosphatase 76 (34-104) Units/L Troponin I < 0.03 (< 0.04) ng/mL B-Natriuretic Peptide (Less than 100) pg/mL Serum Total Protein 6.4 (6.4-8.9) g/dL Albumin 3.9 (3.5-5.7) g/dL Globulin 2.5 (2.4-3.5) g/dL Albumin/Globulin Ratio 1.6 (1.1-2.2) 11/06/18 Range/Units 15:13 WBC (4.3-11.1) K/mcL RBC (4.19-5.50) M/mcL Hgb (12.9-16.9) g/dL Hct (37.5-50.1) % MCV (83.0-100.0) fL MCH (28.0-33.3) pg MCHC (31.6-35.5) g/dL RDW (11.5-14.5) % Plt Count (140-400) K/mcL MPV (9.4-12.4) fL Immature Gran % (0-4) % Seg Neutrophils % % Lymphocytes % % Monocytes % % Eosinophils % % Basophils % % Neutrophils # (1.6-8.9) K/mcL Lymphocytes # (0.6-4.6) K/mcL Monocytes # (0.0-1.3) K/mcL Eosinophils # (0.0-0.6) K/mcL Basophils # (0.0-0.2) K/mcL PT (9.4-12.1) Seconds INR Sodium (136-145) mEq/L Potassium (3.5-5.1) mEq/L Chloride (98-107) mEq/L Carbon Dioxide (23-29) mEq/L BUN (8-23) mg/dL Creatinine (0.70-1.30) mg/dL Est GFR ( Amer) (> 60) Est GFR (Non-Af Amer) (> 60) BUN/Creatinine Ratio (6-26) Glucose (70-105) mg/dL Calculated Osmolality (280-300) Calcium (8.6-10.3) mg/dL Total Bilirubin (0.3-1.0) mg/dL Direct Bilirubin (0.0-0.2) mg/dL Indirect Bilirubin (0.0-1.2) mg/dL AST (13-39) Units/L ALT (7-52) Units/L Alkaline Phosphatase (34-104) Units/L Troponin I (< 0.04) ng/mL B-Natriuretic Peptide 108 H (Less than 100) pg/mL Serum Total Protein (6.4-8.9) g/dL Albumin (3.5-5.7) g/dL Globulin (2.4-3.5) g/dL Albumin/Globulin Ratio (1.1-2.2) - Radiology Data Radiology results reviewed: Yes I reviewed the patient's radiology results. - EKG Data EKG attestation: Yes I reviewed and interpreted this EKG. EKG results narrative: Sinus tachycardia rate 104 ME 170 QRS 101 QT/QTC 334/440. No acute ST segment elevation. Study compared to previous dated 09/02/18
[2018-11-06 15:29] LABS: Basophils # 0.1 K/mcL (0.0-0.2); Basophils % 0.9 %; Eosinophils # 0.2 K/mcL (0.0-0.6); Eosinophils % 2.5 %; Hematocrit 45.8 % (37.5-50.1); Hemoglobin 14.6 g/dL (12.9-16.9); Immature Granulocytes % 0.7 % (0-4); Lymphocytes % 12.1 %; Mean Corpuscular HGB Conc 31.9 g/dL (31.6-35.5); Mean Corpuscular Hemoglobin 29.4 pg (28.0-33.3); Mean Corpuscular Volume 92.2 fL (83.0-100.0); Mean Platelet Volume 9.8 fL (9.4-12.4); Monocytes # 0.6 K/mcL (0.0-1.3); Monocytes % 7.7 %; Neutrophils # 6.2 K/mcL (1.6-8.9); Platelet Count 351 K/mcL (140-400); Red Blood Count 4.97 M/mcL (4.19-5.50); Red Cell Distribution Width 14.1 % (11.5-14.5); Segmented Neutrophils % 76.1 %; White Blood Count 8.1 K/mcL (4.3-11.1)
[2018-11-06 15:45] LABS: Prothrombin Time 11.1 Seconds (9.4-12.1)
[2018-11-06 15:51] LABS: Alanine Aminotransferase 8 Units/L (7-52); Albumin 3.9 g/dL (3.5-5.7); Albumin/Globulin Ratio 1.6 (1.1-2.2); Alkaline Phosphatase 76 Units/L (34-104); Aspartate Amino Transferase 9 Units/L (13-39); BUN/Creatinine Ratio 19 (6-26); Bilirubin,Direct 0.1 mg/dL (0.0-0.2); Bilirubin,Indirect 0.5 mg/dL (0.0-1.2); Bilirubin,Total 0.6 mg/dL (0.3-1.0); Blood Urea Nitrogen 13 mg/dL (8-23); Carbon Dioxide 33 mEq/L (23-29); Chloride 93 mEq/L (98-107); Globulin 2.5 g/dL (2.4-3.5); Glucose 481 mg/dL (70-105); Osmolality,Calculated 299 (280-300); Potassium 4.4 mEq/L (3.5-5.1); Sodium 134 mEq/L (136-145); Total Protein 6.4 g/dL (6.4-8.9); Troponin I < 0.03 ng/mL (< 0.04); eGFR For African Americans > 60 (> 60); eGFR For Non-African Americans > 60 (> 60)
[2018-11-06] MEDS ORDERED: Nicotine 2 MG GUM BC PRN (16:52)
[2018-11-06] MEDS ORDERED: Nicotine 14 MG PATCH.TD24 TD SCH (17:00)
[2018-11-06] MEDS ORDERED: Ipratropium Neb 0.5 MG NEBULIZER IH SCH (17:00)
[2018-11-06] MEDS ORDERED: Albuterol 2.5 MG/3 ML NEBULIZER IH SCH (17:00)
--- NOTE | 2018-11-06 17:18 | Internal Med History&Physical ---
Date of Encounter: 11/06/18 Time of Encounter: 17:16 Internal Medicine - H&P: HPI Chief complaint: Shortness of breath Admitted From: Home History of present illness: Mr. Bishop is a 78 year old pleasant elderly male with past medical history of COPD-oxygen dependent on 3 L q24 hours, type 2 diabetes [id number], history of stage I lung cancer status post radiation(last reported Mar 2018) presented to the ED for chief complaint of shortness of breath. Patient states that he has been feeling well 2 days ago. Then after waking up notices increased cough has increased sputum production and progressively more dyspnea. Patient tried using his inhalers that he has a home however with minimal improvement and is exacerbated with any exertion and states inability to walk more than a few steps thus came to the ED. No associated symptoms of fever, night sweats, travels, continues to medication, abdominal pain, history of cardiac disease. Patient reported 2 exacerbation this year. Patient uses oxygen on at 3 L 24 hours and will see him permastone mechanic locally. Patient does not note of chest pain that occurred 2 days ago localized to the left side intermittent sharp the improvements with positioning. Patient's history of coronary disease previously, admits to smoking half pack per day, patient reported past 24 hours have been chest pain-free. Patient also stated that he is a 50 pound weight loss this past few months and does endorses a history of lung cancer unspecified and has been seeing radiation oncology and was discharged. Patient also complains of dysphagia as metastases of aspiration, patient's dysphagia has been progressive mostly with solids. Patient also struggles with ambulation and uses a cane when his respirations improved. Patient otherwise denies drinking admits to smoking and no drug usage. Reviewed patient's past surgical, medical, family (no hx of cardiac dz, or lung cancer -parents) and social history. Past Med Surg Social Fam HX - Past Medical History Medical history: COPD, diabetes, GERD, hypertension, other Additional medical history: chronic respiratory failure, chronic obstructive lung disease, peripheral vascular disease Psychiatric history: other - Past Surgical History Surgical History: herniorrhaphy, orthopedic, other Additional surgical history: 3 knee surgeries, nose surgery, gallbladder, collapsed lung x2, colonoscopy, right thoracosopy & thoracotomy, EGD, ERCP, Upper EUS,ERCP, Cariac cath, cystoscopy transurethral recetion prostate bipolar - Social History Smoking Status: Current every day smoker Smokeless Tobacco Status: No Alcohol use: occasionally Drug use: none - Family History Mother Adopted: No Living Status: Hx Family Cardiac Disorders: No Hx Family Respiratory Disorders: No Hx Family Cancer: No Hx Family GI Disorders: Yes Hx Family Endocrine Disorder: No Hx Family Neuromuscular Disorders: No Hx Family Neurologic Disorders: No Hx Family HEENT Disorders: No Hx Family Autoimmune Disorders: No Father Adopted: No Family Member Ethnicity: Non- Living Status: Hx Family Cardiac Disorders: No Hx Family Respiratory Disorders: No Hx Family Cancer: No Hx Family GI Disorders: No Hx Family Endocrine Disorder: No Hx Family Neuromuscular Disorders: No Hx Family Neurologic Disorders: No Hx Family HEENT Disorders: No Hx Family Autoimmune Disorders: No Internal Medicine - H&P: Meds Aspirin Enteric Coated [Aspirin EC] 81 mg PO DAILY 11/27/16 [History] Glimepiride [Amaryl] 4 mg PO DAILY 11/27/16 [History] Metoprolol [Lopressor] 12.5 mg PO BID 11/27/16 [History] Omeprazole [PriLOSEC] 40 mg PO DAILY 11/27/16 [History] Albuterol Sulfate [Proair Hfa] 2 puff IH Q4H PRN 07/06/17 [History] Pioglitazone HCl [Actos] 45 mg PO DAILY 09/25/17 [History] Metformin HCl 1,000 mg PO BID 11/29/17 [History] Ipratropium/Albuterol Neb [Duoneb] 3 ml IH Q4-6H PRN 09/02/18 [History] Losartan Potassium 25 mg PO DAILY 09/02/18 [History] predniSONE [PredniSONE] 40 mg PO DAILY #10 tablet 09/05/18 [Rx] Magnesium Oxide [Magnesium] 250 mg PO DAILY 11/06/18 [History] Tamsulosin [Flomax] 0.4 mg PO DAILY 11/06/18 [History] Allergy/AdvReac Type Severity Reaction Status Date / Time No Known Allergies Allergy Verified 09/14/18 10:35 All Systems PM: A 10-system review of systems was performed and is negative for pertinent findings except as documented above in the HPI. Review of systems: General: + unintentional weightloss, No fever, night sweats. Head: No pain, No injury, No ulcers. Ears: No discharge, No tenderness. Eyes: No drainage, No erythema No tenderness. Mouth and Throat: No ulcers, No erythema No tendernss. Nose and Sinus: No discharge, No epistaxis, No sinus pain, Respiratory: + cough, + sputum production, + dyspnea Cardiovascular: No chest pain, No palpitations. Gastrointestinal: No nausea, No vomiting. No abdominal tenderness. Genital Tract: No discharge, No tenderness. Urinary Tract: No dysuria, or discharge. MSK: No new/worsening joint pain or new/worsening muscle ache. Endocrine: No cold intolerance, No polyuria Psychological: No suicidal, No homocidal ideation. - Constitutional Vitals: Temp Pulse Resp BP Pulse Ox 98.2 F 96 16 103/68 97 11/06/18 14:57 11/06/18 17:07 11/06/18 17:07 11/06/18 17:07 11/06/18 17:07 Exam: General Appearance: Elderly frail severely malnourished male in moderate distress Head: Atraumatic normocephalic Skin: Normal texture, normal turgor, warm, dry. Scattered bruises and generalized xerosis Eyes: Conjunctivae not pale with no erythema, drainage, or ulcers. Anicteric. Neck: No Lymphadenopathy in the anterior/posterior cervical chain. No thyromega ly, masses or ulcers. Trachea midline. Heart: tachycardic, grade 2 systolic murmurs. Capillary refill 5 seconds Lungs: moderate accessory muscle usage, lungs expiratory wheezes basilar BL. Extremities: No pitting edema, clubbing, or ulcers. Abdomen: Non-distended, normoactive bowel sounds. non-tender to palpation, no hepatomegally. No guarding. Neuro: AOx3 with no new sensory loss or focal deficits. MSK: Strength 5/5 Upper extremity equal bilaterally. Strength 5/5 Lower extremity equal bilaterally Internal Med - H&P Results - Labs CBC & Chem 7: 11/06/18 15:13 11/06/18 15:13 Labs: Short CBC 11/06/18 Range/Units 15:13 WBC 8.1 (4.3-11.1) K/mcL Hgb 14.6 (12.9-16.9) g/dL Hct 45.8 (37.5-50.1) % Plt Count 351 (140-400) K/mcL Neutrophils # 6.2 (1.6-8.9) K/mcL BMP 11/06/18 15:13 Sodium 134 L Potassium 4.4 Chloride 93 L Carbon Dioxide 33 H BUN 13 Creatinine 0.70 Glucose 481 H Calcium 9.0 Cardiac Enzymes 11/06/18 Range/Units 15:13 Troponin I < 0.03 (< 0.04) ng/mL Liver Function 11/06/18 Range/Units 15:13 Total Bilirubin 0.6 (0.3-1.0) mg/dL Direct Bilirubin 0.1 (0.0-0.2) mg/dL AST 9 L (13-39) Units/L ALT 8 (7-52) Units/L Alkaline Phosphatase 76 (34-104) Units/L Albumin 3.9 (3.5-5.7) g/dL - Impressions ITS Impressions Chest X-Ray 11/06/18 15:14 IMPRESSION: Question of COPD with chronic lung changes. No acute cardiopulmonary disease. Moderate hiatal hernia. D/ / Luigi De La Cruz MD / Luigi De La Cruz MD Interpreting Provider: Luigi De La Cruz MD - Summary of Assessment and Plan Summary of Assessment and Plan: 1.Acute Moderate COPD exacerbation: Scheduled Duoneb, Prednisone 40 mg qd. Augmentin initiated due to age and multiple exacerbations reported. Monitor overnight. Procalcitonin, and ABG orderred. If does not improve by tomorrow CT chest. 2.Dysphagia: Hx of weightloss 50lbs Speech therapy consulted. 3.History of chest pain: reported yesterday and resolved today. Troponin trending. HA1c, and lipid panel for risk stratification. 4.Unintentional weightloss: Hx of lung cancer s/p radiation with 50lbs of weightloss. COnsulted oncology for further workup and treatment. 5.Severe malnutrition: NUtrition consulted. 6. Cigarette smoking: Spent 10 minutes educating patient on cessation. Nicotine patch and gum orderred. 7.Hyperglycemia: uncontrolled. AG8 ISS. Held orals. 8.PSeudohyponatremia: COrrected normal. DVT prophylaxis: Heparin Disposition: Depending on response to treatment tomorrow. Anticipate 1-2 days - Time Spent With Patient Total time spent is greater than 35 minutes 50% in coordination of care (as documented) at patient's floor/unit and/or counseling patient: Greater than 35 minutes
[2018-11-06] MEDS ORDERED: Dextrose Gel 15 GM/37.5 ML TUBE PO PRN ×2 (17:43)
[2018-11-06] MEDS ORDERED: *HR* Dextrose 50 % in Water (Syg) 50 ML SYRINGE IVP PRN (17:43)
[2018-11-06] MEDS ORDERED: D5% in Water 1,000 ML IVC PRN (17:43)
[2018-11-06 19:39] LABS: ABG Base Excess 8 mEq/L (-2 to 3); ABG HCO3 36 mEq/L (21-27); ABG Oxygen Saturation 92 % (95-98); ABG PCO2 59 mmHg (35-45); ABG PH 7.39 pH Units (7.32-7.45); ABG PO2 67 mmHg (85-104); ABG TCO2 37 mEq/L (20-26)
[2018-11-06] MEDS: Ipratropium/Albuterol Neb 3 ML IH SCH ×2 (19:54→23:46)
[2018-11-06] MEDS: *HR* Heparin 5,000 UNIT/ML VIAL SQ SCH ×2 (20:31→20:43)
[2018-11-06] MEDS: Nicotine 14 MG PATCH.TD24 TD SCH (20:31)
[2018-11-06] MEDS: Insulin LISPRO 300 UNITS/3 ML VIAL SQ SCH (20:31)
[2018-11-06] MEDS ORDERED: Doxycycline 100 MG CAPSULE PO SCH (21:00)
[2018-11-07] MEDS: Ipratropium/Albuterol Neb 3 ML IH SCH ×6 (03:24→23:36)
[2018-11-07 05:03] LABS: Basophils % 0.4 %; Eosinophils % 0.6 %; Hematocrit 41.3 % (37.5-50.1); Immature Granulocytes % 0.8 % (0-4); Lymphocytes # 0.5 K/mcL (0.6-4.6); Lymphocytes % 10.2 %; Mean Corpuscular HGB Conc 31.5 g/dL (31.6-35.5); Monocytes # 0.2 K/mcL (0.0-1.3); Monocytes % 4.8 %; Red Blood Count 4.49 M/mcL (4.19-5.50); Red Cell Distribution Width 13.8 % (11.5-14.5); Segmented Neutrophils % 83.2 %
[2018-11-07 05:19] LABS: Magnesium 1.8 mg/dL (1.6-2.6); Phosphorous 3.2 mg/dL (2.7-4.5)
[2018-11-07 05:22] LABS: Chol/HDL Ratio 2.9 (0-4.9)
[2018-11-07 05:38] LABS: Thyroid Stimulating Hormone 0.372 mcIU/mL (0.340-5.600)
[2018-11-07] MEDS: *HR* Heparin 5,000 UNIT/ML VIAL SQ SCH ×3 (05:51→21:13)
[2018-11-07 06:09] LABS: Alanine Aminotransferase 7 Units/L (7-52); Albumin 3.7 g/dL (3.5-5.7); Albumin/Globulin Ratio 1.6 (1.1-2.2); Alkaline Phosphatase 67 Units/L (34-104); Aspartate Amino Transferase 7 Units/L (13-39); BUN/Creatinine Ratio 23 (6-26); Bilirubin,Total 0.5 mg/dL (0.3-1.0); Blood Urea Nitrogen 21 mg/dL (8-23); Carbon Dioxide 33 mEq/L (23-29); Chloride 88 mEq/L (98-107); Globulin 2.3 g/dL (2.4-3.5); Osmolality,Calculated 311 (280-300); Potassium 5.2 mEq/L (3.5-5.1); Sodium 131 mEq/L (136-145); eGFR For African Americans > 60 (> 60); eGFR For Non-African Americans > 60 (> 60)
[2018-11-07 06:11] LABS: Glucose 743 mg/dL (70-105)
[2018-11-07] MEDS ORDERED: Insulin Human Regular 10 UNIT in 0.9 % Sodium Chloride 10 ML IV ONE (06:18)
[2018-11-07 06:29] LABS: Neutrophils # 4.2 K/mcL (1.6-8.9)
[2018-11-07 06:31] LABS: Platelet Count 281 K/mcL (140-400)
[2018-11-07] MEDS ORDERED: *HR* Dextrose 50 % in Water (Syg) 50 ML SYRINGE IVP PRN (07:00)
[2018-11-07] MEDS ORDERED: Insulin Human Regular 100 UNIT in 0.9 % Sodium Chloride 100 ML IVC SCH (07:00)
[2018-11-07] MEDS: Nicotine 14 MG PATCH.TD24 TD SCH (08:17)
[2018-11-07] MEDS: predniSONE 20 MG TABLET PO SCH (08:17)
[2018-11-07] MEDS: Insulin LISPRO 300 UNITS/3 ML VIAL SQ SCH ×2 (08:29→17:37)
[2018-11-07] MEDS ORDERED: 0.9 % Sodium Chloride 500 ML ONE (08:31)
[2018-11-07 08:49] LABS: Estimated Average Glucose 312 mg/dl
[2018-11-07 10:26] LABS: BUN/Creatinine Ratio 30 (6-26); Blood Urea Nitrogen 22 mg/dL (8-23); Calcium 9.1 mg/dL (8.6-10.3); Carbon Dioxide 31 mEq/L (23-29); Chloride 96 mEq/L (98-107); Glucose 117 mg/dL (70-105); Osmolality,Calculated 280 (280-300); Potassium 4.1 mEq/L (3.5-5.1); Sodium 133 mEq/L (136-145); eGFR For African Americans > 60 (> 60); eGFR For Non-African Americans > 60 (> 60)
--- NOTE | 2018-11-07 10:31 | Oncology Inp Consult Note ---
<Micha Whyte - Last Filed: 11/07/18 17:13> Date of Encounter: 11/07/18 Time of Encounter: 10:20 Assessment and Plan (1) COPD exacerbation Status: Acute Assessment and plan: The patient presents to the hospital with acute exacerbation of COPD which is primary concern. At this time, he does not seem to have any acute concerns for worsening or recurrent cancer. He did have a chest x-ray on presentation which did not seem to show any acute changes or evidence of recurrent disease or change. He is been placed on steroids with as needed bronchodilators. This is a reasonable treatment at this time. We will not make any changes to his regimen at this time, or add any scans. He has follow-up scheduled with Dr. Barros in December, at which time he will have scans completed. Thank you for involving us in the care of this patient. Please contact us for any further questions or concerns. (2) Dysphagia Status: Acute Assessment and plan: The patient is describing or pharyngeal phase dysphagia. This is apparently something that he has been dealing with for quite some time. Speech therapy did see him and said that he would benefit from a modified barium swallow. This could account for some of his weight loss as he is not able to eat a significant amount and he may be modifying the amount he is able to take in as result. Qualifiers: Dysphagia type: oropharyngeal phase Qualified Code(s): R13.12 - Dysphagia, oropharyngeal phase (3) Lung cancer Status: Acute Assessment and plan: History of stage I lung cancer status post radiotherapy with Dr. Barros. The patient continues to have serial monitoring chest CTs which thus far have been unchanged. His last CT on 09/07/18 demonstrated to relatively stable calcified lung nodules that oncology continues to monitor. The patient does not seem to have any concerns about worsening symptoms, and he does not seem to think that his weight loss is attributed to any ointment process as it may have been before. His next scheduled chest CT was planned for December. Qualifiers: Laterality: left Lung location: upper lobe of lung Qualified Code(s): C34.12 - Malignant neoplasm of upper lobe, left bronchus or lung (4) Diabetes mellitus Status: Chronic Assessment and plan: Diabetes mellitus with acute hyperglycemia and sugars greater than 700. Patient does not seem to have any evidence of DKA, nor does he have HHS at this time. There is some concern that the patient does have some volume depletion on exam, and he may benefit from volume resuscitation as he can tolerate. Management of blood glucose per primary team. Qualifiers: Diabetes mellitus type: type 2 Diabetes mellitus terminal clerk insulin use: unspecified snf insulin use status Diabetes mellitus complication status: without complication Qualified Code(s): E11.9 - Type 2 diabetes mellitus without complications (5) Weight loss Status: Acute (6) Tobacco abuse Status: Chronic Assessment and plan: Patient continues to smoke about half a pack per day. - Data of Consult Patient: known to practice within the last 3 years Consult date: 11/07/18 Requesting Physician: Loraine Cast Primary Care Provider: Rich Trujillo DO - Consult Narrative Reason for consult: Weight loss, hx of lung cancer History of present illness: Mr. Bishop is a 78yo man who presented to [facility] on 11/06/18 for shortness of breath and cough. Hematology and oncology were consulted on 11/07/18 due worsening weight loss and history of stage I lung cancer with concern for possible progression. In short, Mr. Bishop is a 78-year-old man with history of COPD, diabetes, GERD, hypertension who presented to the hospital with 3 day history of worsening shortness of breath, cough, sputum production. In addition of this, he says that he has been feeling chilled which is actually chronic in nature and has been occurring since he actually initially was diagnosed with cancer approximately a year ago. The patient states that this all started approximately 3-4 days ago, and it has been getting progressively worse. He does use home oxygen at 3-4 L and has been requiring more in the past couple of days. In addition this, he has had progressive sputum production. Finally, the patient does have worsened weight loss, with approximately 40 pounds over the past couple of years. He says that most of this is likely due to his COPD according to his primary care provider. The patient does complain of some dysphagia. He says that, especially since he had radiation due to his cancer, he has had more difficulty swallowing. He initially started having difficulty swallowing a couple years back, and he had a modified barium swallow at that time however nothing really came of that. He has to be really been able to deal with his dysphasia by changing the position of his head which has been successful in the past, however recently it has not been able to alleviate his symptoms. He says the dysphasia usually occurs during the initial phase of swallowing. Some foods are worse than others, such as meats or particularly tough foods. He has easier times with soft foods. Using liquids, he is able to alleviate this to some degree. He denies choking. He also denies vomiting. He does say that he saw ENT in the outpatient setting and they advised that he have a modified barium swallow at some point. Social history: The patient lives with his at home, continues to smoke about half a pack a day which she has smoked for approximately 65 years, drinks occasionally on social outings, denies drug use, occasional caffeine use. Feels that she has a somewhat healthy diet. Oncologic history Diagnosis: 1. Calcified lung lesions, possibly related to past stapling of blebs. 2. Stage I (cT1a) lung cancer. Attempted navigational bronchoscopy was negative. EBUS completed 02/01/2018 revealed no evidence of malignancy involving the enlarged precarinal lymph node. 3. Advanced COPD on chronic oxygen 4. Tobacco abuse Current therapy: 1. SBRT Treatment intent: Curative Past Med Surg Social Fam HX - Past Medical History Medical history: COPD, diabetes, GERD, hypertension, other Additional medical history: chronic respiratory failure, chronic obstructive divina g disease, peripheral vascular disease Psychiatric history: other - Past Surgical History Surgical History: herniorrhaphy, orthopedic, other Additional surgical history: 3 knee surgeries, nose surgery, gallbladder, collapsed lung x2, colonoscopy, right thoracosopy & thoracotomy, EGD, ERCP, Upper EUS,ERCP, Cariac cath, cystoscopy transurethral recetion prostate bipolar - Social History Smoking Status: Current every day smoker Smokeless Tobacco Status: No Alcohol use: occasionally Drug use: none - Family History Mother Adopted: No Living Status: Hx Family Cardiac Disorders: No Hx Family Respiratory Disorders: No Hx Family Cancer: No Hx Family GI Disorders: Yes Hx Family Endocrine Disorder: No Hx Family Neuromuscular Disorders: No Hx Family Neurologic Disorders: No Hx Family HEENT Disorders: No Hx Family Autoimmune Disorders: No Father Adopted: No Family Member Ethnicity: Non- Living Status: Hx Family Cardiac Disorders: No Hx Family Respiratory Disorders: No Hx Family Cancer: No Hx Family GI Disorders: No Hx Family Endocrine Disorder: No Hx Family Neuromuscular Disorders: No Hx Family Neurologic Disorders: No Hx Family HEENT Disorders: No Hx Family Autoimmune Disorders: No Medications and Allergies Aspirin Enteric Coated [Aspirin EC] 81 mg PO DAILY 11/27/16 [History] Glimepiride [Amaryl] 4 mg PO DAILY 11/27/16 [History] Metoprolol [Lopressor] 12.5 mg PO BID 11/27/16 [History] Omeprazole [PriLOSEC] 40 mg PO DAILY 11/27/16 [History] Albuterol Sulfate [Proair Hfa] 2 puff IH Q4H PRN 07/06/17 [History] Pioglitazone HCl [Actos] 45 mg PO DAILY 09/25/17 [History] Metformin HCl 1,000 mg PO BID 11/29/17 [History] Ipratropium/Albuterol Neb [Duoneb] 3 ml IH Q4-6H PRN 09/02/18 [History] Losartan Potassium 25 mg PO DAILY 09/02/18 [History] predniSONE [PredniSONE] 40 mg PO DAILY #10 tablet 09/05/18 [Rx] Magnesium Oxide [Magnesium] 250 mg PO DAILY 11/06/18 [History] Tamsulosin [Flomax] 0.4 mg PO DAILY 11/06/18 [History] Allergy/AdvReac Type Severity Reaction Status Date / Time No Known Allergies Allergy Verified 09/14/18 10:35 Review of systems: Constitutional: Denies fevers. Admits to chills which are chronic, weight loss, generalized fatigue Head/Neck: Denies SANDS, neck stiffness EENT: Denies vision changes/blurriness, rhinorrhea, congestion, sore throat CVS: Denies chest pain, palpitations, orthopnea, edema, PND Pulm: Admits to SOB, cough, sputum, wheezing. Denies hemoptysis GI: Denies abdominal pain, nausea, vomiting, diarrhea, constipation, melena, hematemasis. Admits to dysphagia : Denies dysuria, increased frequency, urgency, hematuria Heme: Denies ease of bleeding or bruising MSK: Denies joint pain, limited ROM Skin: Denies rashes, ulcers, color changes Neuro: Denies SANDS, paresthesias, focal deficits, ataxia Oncology - Exam - Constitutional Exam: Gen: Vitals noted. No acute distress. Thin-appearing man Eyes: anicteric sclerae, moist conjunctivae; no lid-lag; Pupils equal and reacti ve to light HENT: Atraumatic; oropharynx clear with dry mucous membranes and no mucosal ulcerations; normal hard and soft palate Neck: Trachea midline; supple, no thyromegaly or lymphadenopathy Cardiac: RRR, no murmur, +S1/S2 Pulmonary: CTA bilaterally, no wheezes, rales or rhonchi, equal chest expansion Abdomen: soft, nontender, no guarding. No masses or hepatosplenomegaly MSK: ROM intact, no joint swelling noted Extremities: no BLE edema, nontender calf, no cyanosis or clubbing Skin: Normal temperature, turgor and texture, dry skin; no rash, ulcers or subcutaneous nodules Neuro: moves all extremities, no focal deficits. Psych: Appropriate mood and behavior. A&Ox3 Consult Discharge Plan - Plan Referrals: Rich Trujillo DO [Primary Care Provider] - 11/15/18 2:00 pm Inpatient Charges Provider: Dr. Zunilda Self <[facility] - Last Filed: 11/07/18 17:40> Date of Encounter: 11/07/18 - Data of Consult Requesting Physician: Loraine Cast Primary Care Provider: Rich Trujillo DO Inpatient Charges Provider: Dr. Zunilda Self Consult - Inpatient: [id number] - Attending Attestation I examined this patient and my medical decision-making was reviewed with the Advanced Practice Nurse. I agree with the documented findings, disposition and treatment plan as described except to the extent set forth below. H/o Stage I Lung cancer s/p radiation therapy He is admitted for a COPD exacerbation and is clinically improving He is scheduled for surveillance scans in 12/2018 We will sign off at this time, please call us with any further questions
--- NOTE | 2018-11-07 12:42 | Internal Med Progress Note ---
Hospitalist Progress Note - Encounter Date of Encounter: 11/07/18 Time of Encounter: 12:38 - Subjective Interval History: Associated examined at bedside nursing reports patient had some difficulty taking pills this morning.-Evaluated by speech therapy recommending barium swallow. Patient having difficulty following solids-GI consulted for possible EGD. Discussed with patient who has been agitated because he has been nothing by mouth. Offered clear liquids since he did pass this on speech evaluation. Patient declined. - Exam Vitals: Temp Pulse Resp BP Pulse Ox 99.1 F 85 19 110/69 99 11/07/18 11:20 11/07/18 11:20 11/07/18 11:20 11/07/18 11:20 11/07/18 11:20 Exam: General Appearance: Elderly frail severely malnourished male Head: Atraumatic normocephalic Skin: Normal texture, normal turgor, warm, dry. Scattered bruises and generalized xerosis Eyes: Conjunctivae not pale with no erythema, drainage, or ulcers. Anicteric. Neck: No Lymphadenopathy in the anterior/posterior cervical chain. No thyromegaly, masses or ulcers. Trachea midline. Heart: tachycardic, grade 2 systolic murmurs. Capillary refill 5 seconds Lungs: moderate accessory muscle usage, lungs expiratory wheezes basilar BL. Extremities: No pitting edema, clubbing, or ulcers. Abdomen: Non-distended, normoactive bowel sounds. non-tender to palpation, no hepatomegally. No guarding. Neuro: AOx3 with no new sensory loss or focal deficits. MSK: Strength 5/5 Upper extremity equal bilaterally. Strength 5/5 Lower extremity equal bilaterally - Assessment and Plan (1) Dysphagia Current Visit: Yes Status: Acute Assessment and Plan: Patient has been having difficulty swallowing and has had a weight loss approximately 50 pounds over the last few months. 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 Consulted GI for possible EGD and questionable strictures Aspiration precautions (2) Malnutrition Current Visit: Yes Status: Acute Assessment and Plan: Patient has had approximately 50 pound weight loss in the past few months. 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 Will undergo barium swallow Will consult GI for possible EGD to rule out any strictures We will consult dietitian (3) Hyperglycemia Current Visit: Yes Status: Acute Assessment and Plan: patient had elevated Blood glucose this am > 600 - AG 8 - started on insulin g tt per previous hospitalist - glucose did come down - potassium and sodium improved - will cont to monitor closely He is on steroids (4) Acute exacerbation of chronic obstructive airways disease Current Visit: No Status: Acute Assessment and Plan: Oxygen as needed Continue with bronchodilators cont with steroids no wheezing noted at this time (5) Diabetes mellitus Current Visit: No Status: Chronic Assessment and Plan: Patient did have elevated glucose this a.m. was placed on insulin drip. This did improve and patient placed back on sliding scale insulin we will monitor closely every 6 hours since patient is nothing by mouth at this time. Continue to hold oral medications for now (6) HTN (hypertension) Current Visit: No Status: Chronic Assessment and Plan: Continue with home medications (7) Tobacco abuse Current Visit: No Status: Chronic Assessment and Plan: Encourage patient to stop smoking continues to smoke approximately 10 cigarettes a day (8) Hyperkalemia Current Visit: No Status: Resolved Assessment and Plan: Secondary to hyperglycemia which has improved and potassium has also improved continue to monitor chemistry - Time Spent with Patient Total time spent is greater than 50% in coordination of care (as documented) at patient's floor/unit and/or counseling patient: Internal Medicine: Result - Labs CBC & Chem 7: 11/07/18 04:18 11/07/18 09:55 Labs: Short CBC 11/06/18 11/07/18 Range/Units 15:13 04:18 WBC 8.1 5.0 (4.3-11.1) K/mcL Hgb 14.6 13.0 D (12.9-16.9) g/dL Hct 45.8 41.3 (37.5-50.1) % Plt Count 351 281 (140-400) K/mcL Neutrophils # 6.2 4.2 (1.6-8.9) K/mcL BMP 11/06/18 11/07/18 11/07/18 15:13 04:18 09:55 Sodium 134 L 131 L 133 L Potassium 4.4 5.2 H 4.1 Chloride 93 L 88 L 96 L Carbon Dioxide 33 H 33 H 31 H BUN 13 21 22 Creatinine 0.70 0.92 0.73 Glucose 481 H 743 H* 117 H Calcium 9.0 9.0 9.1 Cardiac Enzymes 11/06/18 11/06/18 11/07/18 Range/Units 15:13 18:19 04:18 Troponin I < 0.03 < 0.03 < 0.03 (< 0.04) ng/mL Liver Function 11/06/18 11/07/18 Range/Units 15:13 04:18 Total Bilirubin 0.6 0.5 (0.3-1.0) mg/dL Direct Bilirubin 0.1 (0.0-0.2) mg/dL AST 9 L 7 L (13-39) Units/L ALT 8 7 (7-52) Units/L Alkaline Phosphatase 76 67 (34-104) Units/L Albumin 3.9 3.7 (3.5-5.7) g/dL - ABG Interpretation ABG results: ABG ABG pH 7.39 pH Units (7.32-7.45) 11/06/18 19:28 ABG pCO2 59 mmHg (35-45) H 11/06/18 19:28 ABG pO2 67 mmHg (85-104) L 11/06/18 19:28 ABG O2 Saturation 92 % (95-98) L 11/06/18 19:28 PT/INR, D-dimer PT 11.1 Seconds (9.4-12.1) 11/06/18 15:13 - Impressions Impressions Chest X-Ray 11/06/18 15:14 IMPRESSION: Question of COPD with chronic lung changes. No acute cardiopulmonary disease. Moderate hiatal hernia. D/ / Luigi De La Cruz MD / Luigi De La Cruz MD Interpreting Provider: Luigi De La Cruz MD Consult Discharge Plan - Plan Referrals: Rich Trujillo DO [Primary Care Provider] - 11/15/18 2:00 pm (1) Dysphagia Qualifiers: Dysphagia type: unspecified Qualified Code(s): R13.10 - Dysphagia, unspecified (2) Malnutrition Qualifiers: Malnutrition type: protein-calorie malnutrition Protein-calorie malnutrition severity: severe Qualified Code(s): E43 - Unspecified severe protein-calorie malnutrition (5) Diabetes mellitus Qualifiers: Diabetes mellitus type: type 2 Diabetes mellitus oysterman insulin use: unspecified oysterman insulin use status Diabetes mellitus complication status: without complication Qualified Code(s): E11.9 - Type 2 diabetes mellitus without complications (6) HTN (hypertension) Qualifiers: Hypertension type: essential hypertension Qualified Code(s): I10 - Essential (primary) hypertension
[2018-11-07] MEDS ORDERED: E-Z-HD (BARIUM SULF) SUSPENSION PO ONE (15:12)
[2018-11-07] MEDS ORDERED: E-Z-PAQUE (BARIUM SULF) SUSP 1 BOTTLE PO ONE (15:12)
[2018-11-07] MEDS: Amoxicillin/Clavulanate 400 MG/5 ML UDC PO SCH (16:38)
[2018-11-08] MEDS: Amoxicillin/Clavulanate 400 MG/5 ML UDC PO SCH ×3 (00:50→16:53)
[2018-11-08] MEDS ORDERED: Insulin Human Regular 10 UNIT in 0.9 % Sodium Chloride 10 ML IV ONE (01:21)
[2018-11-08 01:23] LABS: Basophils % 0.4 %; Eosinophils # 0.1 K/mcL (0.0-0.6); Eosinophils % 0.6 %; Hematocrit 40.4 % (37.5-50.1); Hemoglobin 12.8 g/dL (12.9-16.9); Immature Granulocytes % 0.6 % (0-4); Lymphocytes # 1.4 K/mcL (0.6-4.6); Mean Corpuscular HGB Conc 31.7 g/dL (31.6-35.5); Mean Corpuscular Hemoglobin 28.6 pg (28.0-33.3); Mean Corpuscular Volume 90.2 fL (83.0-100.0); Mean Platelet Volume 9.8 fL (9.4-12.4); Monocytes # 0.7 K/mcL (0.0-1.3); Neutrophils # 5.8 K/mcL (1.6-8.9); Platelet Count 301 K/mcL (140-400); Red Blood Count 4.48 M/mcL (4.19-5.50); Red Cell Distribution Width 13.8 % (11.5-14.5); Segmented Neutrophils % 72.4 %
[2018-11-08] MEDS: Insulin LISPRO 300 UNITS/3 ML VIAL SQ SCH ×4 (01:23→18:22)
[2018-11-08 01:30] LABS: BUN/Creatinine Ratio 32 (6-26); Blood Urea Nitrogen 21 mg/dL (8-23); Calcium 8.8 mg/dL (8.6-10.3); Carbon Dioxide 34 mEq/L (23-29); Chloride 92 mEq/L (98-107); Glucose 475 mg/dL (70-105); Osmolality,Calculated 294 (280-300); Potassium 4.5 mEq/L (3.5-5.1); Sodium 130 mEq/L (136-145); eGFR For African Americans > 60 (> 60); eGFR For Non-African Americans > 60 (> 60)
[2018-11-08] MEDS: Ipratropium/Albuterol Neb 3 ML IH SCH ×5 (04:11→19:39)
[2018-11-08] MEDS: *HR* Heparin 5,000 UNIT/ML VIAL SQ SCH ×3 (07:12→21:54)
[2018-11-08] MEDS: Nicotine 14 MG PATCH.TD24 TD SCH (09:33)
[2018-11-08] MEDS: predniSONE 20 MG TABLET PO SCH (09:34)
--- NOTE | 2018-11-08 11:24 | Gastroenterology Consult Note ---
<Delbert Chou - Last Filed: 11/08/18 11:19> Date of Encounter: 11/08/18 Time of Encounter: 11:19 - Assessment and plan (1) Dysphagia Status: Acute Assessment and plan: Patient presented with chief complaint of shortness of breath also mentioned dysphagia and weight loss Oncology consultation did not find any malignant reason for weight loss and it is believed to be secondary to anorexia tertiary to dysphagia Barium swallow demonstrated aspiration of residuals, speech therapy did make eye recommendations and is continuing to work with the patient Patient continues to have dysphagia with solid foods and globus sensation, and swallow study did not demonstrate stricture on imaging However given continued solid food dysphagia hospitalist requested GI evaluation and patient is requesting EGD Plan for EGD today to evaluate for strictures or other esophageal abnormalities resulting in dysphagia Further recommendations per Dr. Levy Qualifiers: Dysphagia type: oropharyngeal phase Qualified Code(s): R13.12 - Dysphagia, oropharyngeal phase (2) Weight loss Status: Chronic - Time Spent With Patient Total time spent is greater than 50% in coordination of care (as documented) at patient's floor/unit and/or counseling patient: GI History of Present Illness - Data of Consult Patient: new to practice Consult date: 11/08/18 Requesting Physician: Loraine Cast - Consult Narrative Reason for consult: dysphagia History of present illness: Mr. Bishop is a 78 year old male with a past medical history of COPD, diabetes, lung cancer status post radiation who presented secondary the chief complaint of shortness of breath. He also complained of significant dysphagia and weight loss. He is admitted and evaluated for COPD exacerbation as well as weight loss secondary dysphagia. Oncology was requested, recommended barium swallow and speech therapy for dysphagia and outpatient follow-up for lung cancer. Barium swallow demonstrated aspiration of residuals, speech therapy may diet recommendations and will continue to work with the patient during the admission. Due to the patient having continued dysphagia with solids gastroenterology consultation was requested to evaluate with EGD for possible strictures. On my evaluation the patient did confirm dysphagia with solids and denied dysphagia with liquids. He states that with solids foods he does experience a globus sensation at the level of the manubrium and often has to use liquids to complete swallow function. This has been ongoing for some time and he has been previously evaluated for this, and he believes is causing his anorexia and weight loss. His last EGD was over 10 years ago and did not find any abnormalities at that time. The patient is requesting EGD to evaluate for solid food dysphagia. Past Med Surg Social Fam HX - Past Medical History Medical history: COPD, diabetes, GERD, hypertension, other Additional medical history: chronic respiratory failure, chronic obstructive lung disease, peripheral vascular disease Psychiatric history: other - Past Surgical History Surgical History: herniorrhaphy, orthopedic, other Additional surgical history: 3 knee surgeries, nose surgery, gallbladder, collapsed lung x2, colonoscopy, right thoracosopy & thoracotomy, EGD, ERCP, Upper EUS,ERCP, Cariac cath, cystoscopy transurethral recetion prostate bipolar - Social History Smoking Status: Current every day smoker Smokeless Tobacco Status: No Alcohol use: occasionally Drug use: none - Family History Mother Adopted: No Living Status: Hx Family Cardiac Disorders: No Hx Family Respiratory Disorders: No Hx Family Cancer: No Hx Family GI Disorders: Yes Hx Family Endocrine Disorder: No Hx Family Neuromuscular Disorders: No Hx Family Neurologic Disorders: No Hx Family HEENT Disorders: No Hx Family Autoimmune Disorders: No Father Adopted: No Family Member Ethnicity: Non- Living Status: Hx Family Cardiac Disorders: No Hx Family Respiratory Disorders: No Hx Family Cancer: No Hx Family GI Disorders: No Hx Family Endocrine Disorder: No Hx Family Neuromuscular Disorders: No Hx Family Neurologic Disorders: No Hx Family HEENT Disorders: No Hx Family Autoimmune Disorders: No All systems PM: reviewed and no additional remarkable complaints except as stated - Constitutional Vitals: Temp Pulse Resp BP Pulse Ox 97.8 F 106 18 133/80 96 11/08/18 06:57 11/08/18 06:57 11/08/18 07:29 11/08/18 06:57 11/08/18 07:29 General appearance: Present: A&O X 3, no acute distress - Eye Eye exam: Present: EOMI, PERRL - Respiratory Additional comments: Coarse breath sounds bilaterally - Cardiovascular Cardiovascular exam: Present: RRR - GI/Abdominal GI/Abdominal exam: Present: soft, no peritoneal signs. Absent: distended, firm, guarding, tenderness - Extremities Exam Extremities exam: Present: radial pulses palpable and symmetrical - Skin Skin exam: Present: dry, warm Results - Labs CBC & Chem 7: 11/08/18 00:44 11/08/18 00:44 Labs: Last Result 11/08/18 00:44 Calcium 8.8 Entire Visit 11/08/18 00:44 Hgb 12.8 L Hct 40.4 - ABG ABG results: ABG ABG pH 7.39 pH Units (7.32-7.45) 11/06/18 19:28 ABG pCO2 59 mmHg (35-45) H 11/06/18 19:28 ABG pO2 67 mmHg (85-104) L 11/06/18 19:28 ABG O2 Saturation 92 % (95-98) L 11/06/18 19:28 PT/INR, D-dimer PT 11.1 Seconds (9.4-12.1) 11/06/18 15:13 - Impressions Impressions Videofluoroscopic Swallow 11/07/18 11:05 IMPRESSION: Aspiration of thin liquid residue. Please see separate speech pathology report for full discussion of findings and recommendations. D/ / Bobby Turcios MD / Bobby Turcios MD Interpreting Provider: Bobby Turcios MD Consult Discharge Plan - Plan Instructions: Omeprazole (By mouth), Levofloxacin (By mouth), Insulin Detemir (Injection), Diabetic Hypoglycemia (DC), Chronic Obstructive Pulmonary Disease (DC), Chronic Dysphagia (DC), Diabetic Hyperglycemia (DC) Referrals: Rich Trujillo DO [Primary Care Provider] - 11/15/18 2:00 pm Conor Bolton MD [Partnered Physician] - (Appointment has been requested.) Prescriptions: Levofloxacin [Levaquin] 750 mg PO DAILY 5 Days #5 tablet Insulin DETEMIR [Levemir Flextouch] 10 unit SQ BID #5 insuln.pen Omeprazole [PriLOSEC] 40 mg PO DAILY #30 capsule. <Star Levy - Last Filed: 12/05/18 08:58> Date of Encounter: 11/08/18 - Time Spent With Patient Total time spent is greater than 50% in coordination of care (as documented) at patient's floor/unit and/or counseling patient: GI History of Present Illness - Data of Consult Requesting Physician: Loraine Cast - Consult Narrative History of present illness: Mr. Bishop is a 78 year old male - Constitutional Vitals: Temp Pulse Resp BP Pulse Ox 97.9 F 91 16 129/72 98 11/11/18 08:11 11/11/18 08:11 11/11/18 08:11 11/11/18 08:11 11/11/18 08:11 Results - Labs CBC & Chem 7: 11/10/18 03:59 11/11/18 08:37 - ABG ABG results: ABG ABG pH 7.39 pH Units (7.32-7.45) 11/06/18 19:28 ABG pCO2 59 mmHg (35-45) H 11/06/18 19:28 ABG pO2 67 mmHg (85-104) L 11/06/18 19:28 ABG O2 Saturation 92 % (95-98) L 11/06/18 19:28 PT/INR, D-dimer PT 11.1 Seconds (9.4-12.1) 11/06/18 15:13 - Attending Attestation 78 year old female with anemia and dysphagia. Plan EGD. Other problems as discussed above I have personally performed a face to face evaluation on this patient. I have reviewed and agree with the care plan. History and Exam by me shows:
[2018-11-08] MEDS ORDERED: *HR* Propofol 200 MG/20 ML VIAL IVP ONE (11:47)
[2018-11-08] MEDS ORDERED: Lidocaine -MPF 2% 2 ML VIAL ONE (11:47)
[2018-11-08 12:44] LABS: BUN/Creatinine Ratio 30 (6-26); Blood Urea Nitrogen 17 mg/dL (8-23); Calcium 9.2 mg/dL (8.6-10.3); Carbon Dioxide 35 mEq/L (23-29); Chloride 94 mEq/L (98-107); Glucose 291 mg/dL (70-105); Osmolality,Calculated 292 (280-300); Potassium 4.6 mEq/L (3.5-5.1); Sodium 135 mEq/L (136-145); eGFR For African Americans > 60 (> 60); eGFR For Non-African Americans > 60 (> 60)
--- NOTE | 2018-11-08 12:59 | Anesthesia Evaluation PreOp ---
Date of Encounter: 11/08/18 Time of Encounter: 12:56 - Past History Planned Operation: EGD Cardiac History: HTN, Hyperlipidemia Pulmonary History: Smoker, COPD, Other (lung cancer s/p radiation) SCREEN TACKER History: Denies Any Significant HX Other Medical History: Diabetes Type II (poorly controlled type II) Anesthesia History: No Prior Anesthetic Complications Alcohol Use: occasionally Drug use: none Medications and Allergies Glimepiride [Amaryl] 4 mg PO BID 11/27/16 [History] Metoprolol [Lopressor] 12.5 mg PO BID 11/27/16 [History] Omeprazole [PriLOSEC] 40 mg PO DAILY 11/27/16 [History] Albuterol Sulfate [Proair Hfa] 2 puff IH Q4H PRN 07/06/17 [History] Pioglitazone HCl [Actos] 45 mg PO DAILY 09/25/17 [History] Metformin HCl 1,000 mg PO BID 11/29/17 [History] Ipratropium/Albuterol Neb [Duoneb] 3 ml IH Q6H PRN 09/02/18 [History] Losartan Potassium 25 mg PO DAILY 09/02/18 [History] Magnesium Oxide [Magnesium] 250 mg PO DAILY 11/06/18 [History] Tamsulosin [Flomax] 0.4 mg PO DAILY 11/06/18 [History] Aspirin [Adult Aspirin Regimen] 81 mg PO DAILY 11/07/18 [History] Budesonide/Formoterol 160/4.5 [Symbicort 160/4.5] 2 puff IH BIDR 11/07/18 [History] Allergy/AdvReac Type Severity Reaction Status Date / Time No Known Allergies Allergy Verified 11/07/18 22:39 - Meds/Allergy Pre-op Review Medications Reviewed: Yes Allergies Reviewed: Yes Beta Blockers on Current Med List: Yes (metoprolol) If Beta Blockers taken, Date/Time (Last Dose taken): holding for reactive airway exacerbation Anesthesia Results - Labs 11/08/18 00:44 11/08/18 11:48 - Imaging EKG: report reviewed, image reviewed (SINUS RHYTHM WITH FREQUENT SUPRAVENTRICU LAR PREMATURE COMPLEXES ABNORMAL RHYTHM ECG) Additional studies: 2015 TTE: Impressions: Technically challenging study with suboptimal windows. Grossly, LV systolic function appears normal. Mild LV diastolic dysfunction. RV is not well visualized, grossly there is normal function. No significant valvular dysfunction. No evidence for pulmonary hypertension. IVC is not dilated. Anesthesia Exam Last Vital Signs Temp 98.3 F 11/08/18 12:38 Pulse 92 11/08/18 12:38 Resp 18 11/08/18 12:38 BP 119/59 11/08/18 12:38 Pulse Ox 98 11/08/18 12:38 Weight: 53 kg NPO (# of Hours): > 8 hrs - HEENT Pupil (Motor): Pupils equal, EOMI Mallampati: III Teeth: Edentulous Denture Type: Upper: Complete, Lower: Complete Oral Opening: Greater than 3 - SCREEN TACKER LOC: Oriented - Cardiac Rhythm: Regular Murmur: None - Pulmonary Breath Sounds: bilateral Clear (some expiratory wheeze bilaterally) Respiratory Effort: Symmetrical (diminished) Anesthesia Assess/Plan ASA Score: 4 Level of consciousness: Cooperative Anesthetic Plan: MAC Monitoring Plan: Standard Monitors Recovery Plan: PACU
--- NOTE | 2018-11-08 14:20 | Internal Med Progress Note ---
Hospitalist Progress Note - Encounter Date of Encounter: 11/08/18 Time of Encounter: 14:18 - Subjective Interval History: Patient was seen and examined at bedside he is under: EGD today solitary procedure well. He sitting up at bedside eating a soft diet without any difficulty. States his swelling is much improved. He did have elevated blood glucose overnight we will monitor glucose closely and increase insulin - Exam Vitals: Temp Pulse Resp BP Pulse Ox 98.3 F 92 18 119/59 98 11/08/18 12:38 11/08/18 12:38 11/08/18 12:38 11/08/18 12:38 11/08/18 12:38 Exam: General Appearance: Elderly frail severely malnourished male Head: Atraumatic normocephalic Skin: Normal texture, normal turgor, warm, dry. Scattered bruises and generalized xerosis Eyes: Conjunctivae not pale with no erythema, drainage, or ulcers. Anicteric. Neck: No Lymphadenopathy in the anterior/posterior cervical chain. No thyromegaly, masses or ulcers. Trachea midline. Heart: tachycardic, grade 2 systolic murmurs. Capillary refill 5 seconds Lungs: moderate accessory muscle usage, lungs expiratory wheezes basilar BL. Extremities: No pitting edema, clubbing, or ulcers. Abdomen: Non-distended, normoactive bowel sounds. non-tender to palpation, no hepatomegally. No guarding. Neuro: AOx3 with no new sensory loss or focal deficits. MSK: Strength 5/5 Upper extremity equal bilaterally. Strength 5/5 Lower extremity equal bilaterally - Assessment and Plan (1) Dysphagia Current Visit: Yes Status: Acute Assessment and Plan: Patient has been having difficulty swallowing and has had a weight loss approximately 50 pounds over the last few months. 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 Consulted GI for possible EGD and questionable strictures Aspiration precautions 11/08 Underwent EGD today he did have a small stricture which was dilated per GI physician. Continue with soft diet for now-appears to be tolerating well Patient will follow up with GI in 3 weeks (2) Malnutrition Current Visit: Yes Status: Acute Assessment and Plan: Patient has had approximately 50 pound weight loss in the past few months. 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 Will undergo barium swallow Will consult GI for possible EGD to rule out any strictures We will consult dietitian 11/08 Continue soft diet Underwent EGD and did have small stricture which was dilated Dietitian has been consulted and appreciate recommendations for oral supplements (3) Hyperglycemia Current Visit: Yes Status: Acute Assessment and Plan: patient had elevated Blood glucose this am > 600 - AG 8 - started on insulin gtt per previous hospitalist - glucose did come down - potassium and sodium improved - will cont to monitor closely He is on steroids 11/08 He did have elevated glucose again this morning-given 10 units Humulin R subcutaneous and this did improve. Findings scale has been increased continue to monitor closely Accu-Cheks every 6 hours until he is tolerating oral intake He is on steroids as well which may be driving his glucose. (4) Acute exacerbation of chronic obstructive airways disease Current Visit: No Status: Acute Assessment and Plan: Seems to be improving no wheezing at this time Oxygen as needed Continue with bronchodilators cont with steroids (5) Diabetes mellitus Current Visit: No Status: Chronic Assessment and Plan: Patient did have elevated glucose this a.m.-he was given 10 units of Humulin R and glucose did improve. Accu-Cheks every 6 hours and increase and sliding scale insulin to moderate level Continue to hold oral medications for now (6) HTN (hypertension) Current Visit: No Status: Chronic Assessment and Plan: Continue with home medications (7) Tobacco abuse Current Visit: No Status: Chronic Assessment and Plan: Encourage patient to stop smoking continues to smoke approximately 10 cigarettes a day (8) Hyperkalemia Current Visit: No Status: Resolved Assessment and Plan: Secondary to hyperglycemia which has improved and potassium has also improved continue to monitor chemistry - Time Spent with Patient Total time spent is greater than 50% in coordination of care (as documented) at patient's floor/unit and/or counseling patient: Internal Medicine: Result - Labs CBC & Chem 7: 11/08/18 00:44 11/08/18 11:48 Labs: Short CBC 11/08/18 Range/Units 00:44 WBC 8.0 D (4.3-11.1) K/mcL Hgb 12.8 L (12.9-16.9) g/dL Hct 40.4 (37.5-50.1) % Plt Count 301 (140-400) K/mcL Neutrophils # 5.8 (1.6-8.9) K/mcL BMP 11/08/18 11/08/18 00:44 11:48 Sodium 130 L 135 L Potassium 4.5 4.6 Chloride 92 L 94 L Carbon Dioxide 34 H 35 H BUN 21 17 Creatinine 0.65 L 0.57 L Glucose 475 H 291 H Calcium 8.8 9.2 - ABG Interpretation ABG results: ABG ABG pH 7.39 pH Units (7.32-7.45) 11/06/18 19:28 ABG pCO2 59 mmHg (35-45) H 11/06/18 19:28 ABG pO2 67 mmHg (85-104) L 11/06/18 19:28 ABG O2 Saturation 92 % (95-98) L 11/06/18 19:28 PT/INR, D-dimer PT 11.1 Seconds (9.4-12.1) 11/06/18 15:13 - Impressions Impressions Videofluoroscopic Swallow 11/07/18 11:05 IMPRESSION: Aspiration of thin liquid residue. Please see separate speech pathology report for full discussion of findings and recommendations. D/ / Bobby Turcios MD / Bobby Turcios MD Interpreting Provider: Bobby Turcios MD Consult Discharge Plan - Plan Referrals: Rich Trujillo DO [Primary Care Provider] - 11/15/18 2:00 pm (1) Dysphagia Qualifiers: Dysphagia type: oropharyngeal phase Qualified Code(s): R13.12 - Dysphagia, oropharyngeal phase (2) Malnutrition Qualifiers: Malnutrition type: protein-calorie malnutrition Protein-calorie malnutrition severity: severe Qualified Code(s): E43 - Unspecified severe protein-calorie malnutrition (5) Diabetes mellitus Qualifiers: Diabetes mellitus type: type 2 Diabetes mellitus snf insulin use: unspecified exterminator insulin use status Diabetes mellitus complication status: without complication Qualified Code(s): E11.9 - Type 2 diabetes mellitus without complications (6) HTN (hypertension) Qualifiers: Hypertension type: essential hypertension Qualified Code(s): I10 - Essential (primary) hypertension
[2018-11-09] MEDS: Ipratropium/Albuterol Neb 3 ML IH SCH ×7 (00:11→23:29)
[2018-11-09] MEDS: Amoxicillin/Clavulanate 400 MG/5 ML UDC PO SCH ×2 (00:12→07:47)
[2018-11-09] MEDS: Insulin LISPRO 300 UNITS/3 ML VIAL SQ SCH ×3 (01:01→16:46)
[2018-11-09] MEDS: *HR* Heparin 5,000 UNIT/ML VIAL SQ SCH ×3 (06:35→22:08)
[2018-11-09 06:43] LABS: BUN/Creatinine Ratio 37 (6-26); Blood Urea Nitrogen 26 mg/dL (8-23); Carbon Dioxide 33 mEq/L (23-29); Chloride 94 mEq/L (98-107); Glucose 217 mg/dL (70-105); Osmolality,Calculated 289 (280-300); Potassium 4.6 mEq/L (3.5-5.1); Sodium 134 mEq/L (136-145); eGFR For African Americans > 60 (> 60); eGFR For Non-African Americans > 60 (> 60)
[2018-11-09] MEDS: predniSONE 20 MG TABLET PO SCH (07:46)
[2018-11-09] MEDS: Nicotine 14 MG PATCH.TD24 TD SCH (07:47)
[2018-11-09] MEDS ORDERED: *HR* Glimepiride 4 MG TABLET PO SCH (09:32)
[2018-11-09] MEDS ORDERED: *HR* Pioglitazone 45 MG TABLET PO SCH (09:32)
[2018-11-09] MEDS ORDERED: *HR* Metformin 500 MG TABLET PO SCH (09:32)
[2018-11-09] MEDS: Cefepime HCl 1,000 MG in Water for inj. (sterile) 10 ML IVP SCH ×2 (11:11→15:39)
--- NOTE | 2018-11-09 14:57 | Internal Med Progress Note ---
Hospitalist Progress Note - Encounter Date of Encounter: 11/09/18 Time of Encounter: 12:00 - Subjective Interval History: Patient was seen and examined at bedside-60s a he feels he can swallow much better-breathing has improved continues to have elevations in blood glucose-to 300s- advised patient that he will need to be established on home insulin-we wi ll initiate and monitor blood glucose patient verbalizes understanding - Exam Vitals: Temp Pulse Resp BP Pulse Ox 97.6 F 78 18 123/73 95 11/09/18 11:19 11/09/18 11:19 11/09/18 11:19 11/09/18 11:11/09/18 11:19 Exam: General Appearance: Elderly frail severely malnourished male Head: Atraumatic normocephalic Skin: Normal texture, normal turgor, warm, dry. Scattered bruises and generalized xerosis Eyes: Conjunctivae not pale with no erythema, drainage, or ulcers. Anicteric. Neck: No Lymphadenopathy in the anterior/posterior cervical chain. No thyromegaly, masses or ulcers. Trachea midline. Heart: tachycardic, grade 2 systolic murmurs. Capillary refill 5 seconds Lungs: moderate accessory muscle usage, lungs expiratory wheezes basilar BL. Extremities: No pitting edema, clubbing, or ulcers. Abdomen: Non-distended, normoactive bowel sounds. non-tender to palpation, no hepatomegally. No guarding. Neuro: AOx3 with no new sensory loss or focal deficits. MSK: Strength 5/5 Upper extremity equal bilaterally. Strength 5/5 Lower extremity equal bilaterally - Assessment and Plan (1) Dysphagia Current Visit: Yes Status: Acute Assessment and Plan: Patient has been having difficulty swallowing and has had a weight loss approximately 50 pounds over the last few months. 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 Consulted GI for possible EGD and questionable strictures Aspiration precautions 11/08 Underwent EGD today he did have a small stricture which was dilated per GI physician. Continue with soft diet for now-appears to be tolerating well Patient will follow up with GI in 3 weeks 11/09 Patient is tolerating meals-continue with soft diet Does have some difficulty with pills that time encouraged to take with applesauce (2) Malnutrition Current Visit: Yes Status: Acute Assessment and Plan: Patient has had approximately 50 pound weight loss in the past few months. 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 Will undergo barium swallow Will consult GI for possible EGD to rule out any strictures We will consult dietitian 11/08 Continue soft diet Underwent EGD and did have small stricture which was dilated Dietitian has been consulted and appreciate recommendations for oral supplements 11/09 Patient is swallowing much better-tolerating meals Dietary has been consulted and appreciate recommendations (3) Hyperglycemia Current Visit: Yes Status: Acute Assessment and Plan: patient had elevated Blood glucose this am > 600 - AG 8 - started on insulin gtt per previous hospitalist - glucose did come down - potassium and sodium improved - will cont to monitor closely He is on steroids 11/08 He did have elevated glucose again this morning-given 10 units Humulin R subcutaneous and this did improve. Findings scale has been increased continue to monitor closely Accu-Cheks every 6 hours until he is tolerating oral intake He is on steroids as well which may be driving his glucose. 11/09 He continues to have elevated blood glucose attempted to transition over to orals without much success. His hemoglobin A1c was 12.5 he will need to be placed on insulin prior to discharge. We will initiate on Levemir 10 units with a sliding scale and monitor overnight. Patient will be provided with education and he may require home health services discussed with social welfare administrator (4) Acute exacerbation of chronic obstructive airways disease Current Visit: No Status: Acute Assessment and Plan: Seems to be improving no wheezing at this time-he does have Pseudomonas in his sputum we will place on cefepime and discharged on Levaquin-for 10 days Oxygen as needed Continue with bronchodilators cont with steroids-for 1 more day (5) Diabetes mellitus Current Visit: No Status: Chronic Assessment and Plan: Patient did have elevated glucose this a.m.-he was given 10 units of Humulin R and glucose did improve. Accu-Cheks every 6 hours and increase and sliding scale insulin to moderate level Continue to hold oral medications for now 11/09 Attempted to resume oral medications without success we will continue to hold. Hemoglobin A1c is 12.5 will need to initiate on insulin We will place on basal as well as short acting insulin (6) HTN (hypertension) Current Visit: No Status: Chronic Assessment and Plan: Continue with home medications (7) Tobacco abuse Current Visit: No Status: Chronic Assessment and Plan: Encourage patient to stop smoking continues to smoke approximately 10 cigarettes a day (8) Hyperkalemia Current Visit: No Status: Resolved - Time Spent with Patient Total time spent is greater than 50% in coordination of care (as documented) at patient's floor/unit and/or counseling patient: Internal Medicine: Result - Labs CBC & Chem 7: 11/08/18 00:44 11/09/18 04:34 Labs: BMP 11/09/18 04:34 Sodium 134 L Potassium 4.6 Chloride 94 L Carbon Dioxide 33 H BUN 26 H Creatinine 0.70 Glucose 217 H Calcium 9.0 - ABG Interpretation ABG results: ABG ABG pH 7.39 pH Units (7.32-7.45) 11/06/18 19:28 ABG pCO2 59 mmHg (35-45) H 11/06/18 19:28 ABG pO2 67 mmHg (85-104) L 11/06/18 19:28 ABG O2 Saturation 92 % (95-98) L 11/06/18 19:28 PT/INR, D-dimer PT 11.1 Seconds (9.4-12.1) 11/06/18 15:13 Consult Discharge Plan - Plan Referrals: Rich Trujillo DO [Primary Care Provider] - 11/15/18 2:00 pm (1) Dysphagia Qualifiers: Dysphagia type: oropharyngeal phase Qualified Code(s): R13.12 - Dysphagia, oropharyngeal phase (2) Malnutrition Qualifiers: Malnutrition type: protein-calorie malnutrition Protein-calorie malnutrition severity: severe Qualified Code(s): E43 - Unspecified severe protein-calorie malnutrition (5) Diabetes mellitus Qualifiers: Diabetes mellitus type: type 2 Diabetes mellitus halfway insulin use: unspecified termite control representative insulin use status Diabetes mellitus complication status: without complication Qualified Code(s): E11.9 - Type 2 diabetes mellitus without complications (6) HTN (hypertension) Qualifiers: Hypertension type: essential hypertension Qualified Code(s): I10 - Essential (primary) hypertension
[2018-11-09] MEDS ORDERED: Cefepime HCl 1,000 MG in Water for inj. (sterile) 10 ML IVP SCH (16:00)
[2018-11-09] MEDS ORDERED: Insulin LISPRO 300 UNITS/3 ML VIAL SQ SCH (21:00)
[2018-11-09] MEDS ORDERED: Insulin DETEMIR 100 UNIT/ML X5UNITS SQ SCH (21:00)
[2018-11-10] MEDS: Cefepime HCl 1,000 MG in Water for inj. (sterile) 10 ML IVP SCH ×3 (00:39→16:33)
[2018-11-10] MEDS: Ipratropium/Albuterol Neb 3 ML IH SCH ×6 (03:44→23:47)
[2018-11-10 04:58] LABS: Basophils % 0.5 %; Eosinophils # 0.1 K/mcL (0.0-0.6); Hematocrit 37.8 % (37.5-50.1); Immature Granulocytes % 0.7 % (0-4); Lymphocytes # 1.5 K/mcL (0.6-4.6); Mean Corpuscular HGB Conc 31.7 g/dL (31.6-35.5); Mean Corpuscular Hemoglobin 28.6 pg (28.0-33.3); Mean Corpuscular Volume 90.2 fL (83.0-100.0); Mean Platelet Volume 9.9 fL (9.4-12.4); Monocytes # 0.8 K/mcL (0.0-1.3); Monocytes % 9.4 %; Neutrophils # 5.9 K/mcL (1.6-8.9); Platelet Count 312 K/mcL (140-400); Red Blood Count 4.19 M/mcL (4.19-5.50); Segmented Neutrophils % 70.4 %; White Blood Count 8.3 K/mcL (4.3-11.1)
[2018-11-10 05:14] LABS: BUN/Creatinine Ratio 38 (6-26); Blood Urea Nitrogen 29 mg/dL (8-23); Calcium 9.3 mg/dL (8.6-10.3); Carbon Dioxide 37 mEq/L (23-29); Chloride 93 mEq/L (98-107); Glucose 202 mg/dL (70-105); Osmolality,Calculated 290 (280-300); Potassium 4.3 mEq/L (3.5-5.1); Sodium 134 mEq/L (136-145); eGFR For African Americans > 60 (> 60); eGFR For Non-African Americans > 60 (> 60)
[2018-11-10] MEDS: *HR* Heparin 5,000 UNIT/ML VIAL SQ SCH ×3 (06:19→20:30)
[2018-11-10] MEDS: Insulin LISPRO 300 UNITS/3 ML VIAL SQ SCH ×2 (07:38→16:30)
[2018-11-10] MEDS: Nicotine 14 MG PATCH.TD24 TD SCH (08:47)
[2018-11-10] MEDS: predniSONE 20 MG TABLET PO SCH (08:48)
[2018-11-10] MEDS ORDERED: Insulin DETEMIR 100 UNIT/ML X5UNITS SQ SCH ×3 (09:00)
[2018-11-10] MEDS ORDERED: Insulin DETEMIR 100 UNIT/ML X5UNITS SQ ONE (10:23)
--- NOTE | 2018-11-10 10:53 | Internal Med Progress Note ---
Hospitalist Progress Note - Encounter Date of Encounter: 11/11/18 Time of Encounter: 16:05 - Subjective Interval History: Patient was seen and examined at bedside He cont to have elevated blood glucose - Discussed with the patient We will increase insulin and monitor overnight - Exam Vitals: Temp Pulse Resp BP Pulse Ox 98.1 F 95 20 129/80 99 11/10/18 07:34 11/10/18 07:34 11/10/18 07:34 11/10/18 07:34 11/10/18 07:34 Exam: General Appearance: Elderly frail severely malnourished male Head: Atraumatic normocephalic Skin: Normal texture, normal turgor, warm, dry. Scattered bruises and generalized xerosis Eyes: Conjunctivae not pale with no erythema, drainage, or ulcers. Anicteric. Neck: No Lymphadenopathy in the anterior/posterior cervical chain. No t hyromegaly, masses or ulcers. Trachea midline. Heart: tachycardic, grade 2 systolic murmurs. Capillary refill 5 seconds Lungs: moderate accessory muscle usage, lungs expiratory wheezes basilar BL. Extremities: No pitting edema, clubbing, or ulcers. Abdomen: Non-distended, normoactive bowel sounds. non-tender to palpation, no hepatomegally. No guarding. Neuro: AOx3 with no new sensory loss or focal deficits. MSK: Strength 5/5 Upper extremity equal bilaterally. Strength 5/5 Lower extremity equal bilaterally - Assessment and Plan (1) Dysphagia Current Visit: Yes Status: Acute Assessment and Plan: Patient has been having difficulty swallowing and has had a weight loss approximately 50 pounds over the last few months. 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 Consulted GI for possible EGD and questionable strictures Aspiration precautions 11/08 Underwent EGD today he did have a small stricture which was dilated per GI physician. Continue with soft diet for now-appears to be tolerating well Patient will follow up with GI in 3 weeks 11/09 Patient is tolerating meals-continue with soft diet Does have some difficulty with pills that time encouraged to take with applesauce 11/10 much improved able to tolerate diet (2) Malnutrition Current Visit: Yes Status: Acute Assessment and Plan: Patient has had approximately 50 pound weight loss in the past few months. 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 Will undergo barium swallow Will consult GI for possible EGD to rule out any strictures We will consult dietitian 11/08 Continue soft diet Underwent EGD and did have small stricture which was dilated Dietitian has been consulted and appreciate recommendations for oral supplements 11/09 Patient is swallowing much better-tolerating meals Dietary has been consulted and appreciate recommendations 11/10 tolerating meals cont with supplements (3) Hyperglycemia Current Visit: Yes Status: Acute Assessment and Plan: patient had elevated Blood glucose this am > 600 - AG 8 - started on insulin gtt per previous hospitalist - glucose did come down - potassium and sodium improved - will cont to monitor closely He is on steroids 11/08 He did have elevated glucose again this morning-given 10 units Humulin R subcutaneous and this did improve. Findings scale has been increased continue to monitor closely Accu-Cheks every 6 hours until he is tolerating oral intake He is on steroids as well which may be driving his glucose. 11/09 He continues to have elevated blood glucose attempted to transition over to orals without much success. His hemoglobin A1c was 12.5 he will need to be placed on insulin prior to discharge. We will initiate on Levemir 10 units with a sliding scale and monitor overnight. Patient will be provided with education and he may require home health services discussed with licensed master social worker 11/10 Glucose cont elevated 399 will increase basal insulin to 15 units BID (4) Acute exacerbation of chronic obstructive airways disease Current Visit: No Status: Acute Assessment and Plan: Seems to be improving no wheezing at this time-he does have Pseudomonas in his sputum we will place on cefepime and discharged on Levaquin-for 10 days Oxygen as needed Continue with bronchodilators steroids completed (5) Diabetes mellitus Current Visit: No Status: Chronic Assessment and Plan: Patient did have elevated glucose this a.m.-he was given 10 units of Humulin R and glucose did improve. Accu-Cheks every 6 hours and increase and sliding scale insulin to moderate level Continue to hold oral medications for now 11/09 Attempted to resume oral medications without success we will continue to hold. Hemoglobin A1c is 12.5 will need to initiate on insulin We will place on basal as well as short acting insulin 8/15 cont to have elevated glucose increase basal to 15 units BID (6) HTN (hypertension) Current Visit: No Status: Chronic Assessment and Plan: Continue with home medications (7) Tobacco abuse Current Visit: No Status: Chronic Assessment and Plan: Encourage patient to stop smoking continues to smoke approximately 10 cigarettes a day - Time Spent with Patient Total time spent is greater than 50% in coordination of care (as documented) at patient's floor/unit and/or counseling patient: Internal Medicine: Result - Labs CBC & Chem 7: 11/10/18 03:59 11/11/18 08:37 Labs: Short CBC 11/10/18 Range/Units 03:59 WBC 8.3 (4.3-11.1) K/mcL Hgb 12.0 L (12.9-16.9) g/dL Hct 37.8 (37.5-50.1) % Plt Count 312 (140-400) K/mcL Neutrophils # 5.9 (1.6-8.9) K/mcL BMP 11/10/18 03:59 Sodium 134 L Potassium 4.3 Chloride 93 L Carbon Dioxide 37 H BUN 29 H Creatinine 0.77 Glucose 202 H Calcium 9.3 - ABG Interpretation ABG results: ABG ABG pH 7.39 pH Units (7.32-7.45) 11/06/18 19:28 ABG pCO2 59 mmHg (35-45) H 11/06/18 19:28 ABG pO2 67 mmHg (85-104) L 11/06/18 19:28 ABG O2 Saturation 92 % (95-98) L 11/06/18 19:28 PT/INR, D-dimer PT 11.1 Seconds (9.4-12.1) 11/06/18 15:13 Consult Discharge Plan - Plan Referrals: Rich Trujillo DO [Primary Care Provider] - 11/15/18 2:00 pm (1) Dysphagia Qualifiers: Dysphagia type: oropharyngeal phase Qualified Code(s): R13.12 - Dysphagia, oropharyngeal phase (2) Malnutrition Qualifiers: Malnutrition type: protein-calorie malnutrition Protein-calorie malnutrition severity: severe Qualified Code(s): E43 - Unspecified severe protein-calorie malnutrition (5) Diabetes mellitus Qualifiers: Diabetes mellitus type: type 2 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
--- NOTE | 2018-11-10 14:53 | Electrocardiograph Report ---
[facility] 3Touch Test Date: 2018-11-06 Pat Name: Rich Bishop Department: EXAM8 Room: 3B44 Gender: M [employer]: : 1940 Requested By: Payam Portillo Order Number: [id number] Reading MD: Alpesh Crawford Measurements Intervals [place] Rate: 104 P: 85 MI: 170 QRS: 85 QRSD: 101 T: 38 QT: 334 QTc: 440 Interpretive Statements Sinus tachycardia Probable left atrial enlargement Borderline right axis deviation Electronically Signed On 11-10-2018 14:51:58 EDT by Alpesh Crawford
[2018-11-10] MEDS ORDERED: Dextrose Gel 15 GM/37.5 ML TUBE PO PRN ×2 (16:03)
[2018-11-10] MEDS ORDERED: *HR* Dextrose 50 % in Water (Syg) 50 ML SYRINGE IVP PRN (16:03)
[2018-11-10] MEDS ORDERED: D5% in Water 1,000 ML IVC PRN (16:03)
[2018-11-10] MEDS: Insulin DETEMIR 100 UNIT/ML X5UNITS SQ SCH (20:30)
[2018-11-11] MEDS: Cefepime HCl 1,000 MG in Water for inj. (sterile) 10 ML IVP SCH ×2 (00:46→08:30)
[2018-11-11] MEDS: Ipratropium/Albuterol Neb 3 ML IH SCH ×4 (03:36→15:08)
[2018-11-11] MEDS: *HR* Heparin 5,000 UNIT/ML VIAL SQ SCH (05:29)
[2018-11-11 08:19] VITALS: BP 129/72
[2018-11-11] MEDS: Insulin LISPRO 300 UNITS/3 ML VIAL SQ SCH (08:34)
[2018-11-11] MEDS: Nicotine 14 MG PATCH.TD24 TD SCH (08:35)
[2018-11-11 10:08] LABS: BUN/Creatinine Ratio 38 (6-26); Blood Urea Nitrogen 25 mg/dL (8-23); Calcium 9.4 mg/dL (8.6-10.3); Carbon Dioxide 37 mEq/L (23-29); Chloride 93 mEq/L (98-107); Glucose 113 mg/dL (70-105); Osmolality,Calculated 285 (280-300); Potassium 4.1 mEq/L (3.5-5.1); Sodium 135 mEq/L (136-145); eGFR For African Americans > 60 (> 60); eGFR For Non-African Americans > 60 (> 60)
[2018-11-11] MEDS: Insulin DETEMIR 100 UNIT/ML X5UNITS SQ SCH (10:13)
--- NOTE | 2018-11-11 11:23 | Discharge Summary ---
- NOTES TO OUTPATIENT PROVIDER Notes to Outpatient Provider: COPD excerbation- pseudomonas in sputum Levaquin. Hyperglycemia- HGB A1C 12.5 dischrged on insulin will need monitor as outpatient. Dysphagia- esophagus dilated per GI follow up with GI placed on PP1 Date of Encounter: 11/11/18 Time of Encounter: 10:52 - Discharge Diagnosis (1) Dysphagia Priority: Secondary Status: Acute Qualifiers: Dysphagia type: oropharyngeal phase Qualified Code(s): R13.12 - Dysphagia, oropharyngeal phase (2) Malnutrition Priority: Secondary Status: Acute Qualifiers: Malnutrition type: protein-calorie malnutrition Protein-calorie malnutriti on severity: severe Qualified Code(s): E43 - Unspecified severe protein- calorie malnutrition (3) Hyperglycemia Priority: Secondary Status: Acute (4) Acute exacerbation of chronic obstructive airways disease Priority: Primary Status: Acute (5) Diabetes mellitus Priority: Secondary Status: Chronic Qualifiers: Diabetes mellitus type: type 2 Diabetes mellitus jail insulin use: unspecified jail insulin use status Diabetes mellitus complication status: without complication Qualified Code(s): E11.9 - Type 2 diabetes mellitus without complications (6) HTN (hypertension) Priority: Secondary Status: Chronic Qualifiers: Hypertension type: essential hypertension Qualified Code(s): I10 - Essential (primary) hypertension (7) Tobacco abuse Priority: Secondary Status: Chronic Hospital course: Mr. Bishop is a 78 year old male is COPD oxygen dependent diabetes. Hypertension presented to [facility] ED with complaints of 3 day history of worsening shortness of breath cough and sputum production. He does have a history of cancer stage I lung and had received radiation therapy back completed December 2017. He does continue to smoke approximately 5 cigarettes a day he has had worsening weight loss over the past 2 years. He also has been complaining of dysphagia and has not been able to swallow solids and has been utilizing liquids to help swallow solid foods.-Sticks. Was completed which did show chronic lung changes he was initiated on antibiotics as well as steroid therapy for COPD exacerbation he demonstrated difficulty swallowing and was evaluated by speech therapy underwent modified barium swallow recommending mechanical soft diet. He was also evaluated by GI and underwent an EGD requiring dilatation of esophagus for strictures. During the stay patient did experience hyperglycemia hemoglobin A1c was 12.5 initiated on insulin-once steroid burst completed his hyperglycemia slowly improved. Patient was provided education concerning pain diabetic diet as well as insulin instruction per nursing staff. Glucose levels have improved she is hemodynamically stable and is ready for discharge. He will follow up with oncology GI in his primary care provider. Patient was advised to keep a l og of glucose levels for primary care provider verbalizes understanding. - Time Spent with Patient Total time spent providing and/or coordinating discharge services: - Discharge Medications Prescriptions: New Levofloxacin [Levaquin] 750 mg PO DAILY 5 Days #5 tablet Insulin DETEMIR [Levemir Flextouch] 10 unit SQ BID #5 insuln.pen Continued Albuterol Sulfate [Proair Hfa] 2 puff IH Q4H PRN PRN Reason: Wheezing Ipratropium/Albuterol Neb [Duoneb] 3 ml IH Q6H PRN PRN Reason: Shortness Of Breath Losartan Potassium 25 mg PO DAILY Tamsulosin [Flomax] 0.4 mg PO DAILY Magnesium Oxide [Magnesium] 250 mg PO DAILY Aspirin [Adult Aspirin Regimen] 81 mg PO DAILY Budesonide/Formoterol 160/4.5 [Symbicort 160/4.5] 2 puff IH BIDR Omeprazole [PriLOSEC] 40 mg PO DAILY #30 capsule.dr Discontinued Glimepiride [Amaryl] 4 mg PO BID Pioglitazone HCl [Actos] 45 mg PO DAILY Metformin HCl 1,000 mg PO BID No Action Metoprolol [Lopressor] 12.5 mg PO BID Home Medications: Metoprolol [Lopressor] 12.5 mg PO BID 11/27/16 [History] Albuterol Sulfate [Proair Hfa] 2 puff IH Q4H PRN 07/06/17 [History] Ipratropium/Albuterol Neb [Duoneb] 3 ml IH Q6H PRN 09/02/18 [History] Losartan Potassium 25 mg PO DAILY 09/02/18 [History] Magnesium Oxide [Magnesium] 250 mg PO DAILY 11/06/18 [History] Tamsulosin [Flomax] 0.4 mg PO DAILY 11/06/18 [History] Aspirin [Adult Aspirin Regimen] 81 mg PO DAILY 11/07/18 [History] Budesonide/Formoterol 160/4.5 [Symbicort 160/4.5] 2 puff IH BIDR 11/07/18 [History] Insulin DETEMIR [Levemir Flextouch] 10 unit SQ BID #5 insuln.pen 11/11/18 [Rx] Levofloxacin [Levaquin] 750 mg PO DAILY 5 Days #5 tablet 11/11/18 [Rx] Omeprazole [PriLOSEC] 40 mg PO DAILY #30 capsule. 11/11/18 [Rx] Allergies/Adverse Reactions: Allergy/AdvReac Type Severity Reaction Status Date / Time No Known Allergies Allergy Verified 11/07/18 22:39 Date of admission: 11/08/18 14:16 Primary care physician: Rich Trujillo DO Consults: 11/06/18 16:53 Consult to Nurse Navigator [CONS] Routine Comment: 11/06/18 16:58 Consult to Physical Therapy [CONS] Routine Comment: Evaluate, develop and implement POC Reason for Consult: Evaluation and treatment. Does patient have active BEDREST order?: No Is patient medically & hemodynamically stable?: Yes Patient assessed for mobility or mobilized this visit?: No 11/07/18 06:00 Consult to Nutrition [CONS] Routine Comment: Consulting Provider: NUTRITION Reason for Dietary Consult: Other Other:: Severe malnutrition. Consult to Oncology [CONS] Routine Consulting Provider: On[facility] Reason for Consult: History of Stage one lung cancer unspecified in remission(completed radiation). Patient have had 50lbs of weightloss past 9 months and concern for recurrance. Call Completed: No Consult to Speech Therapy [CONS] Routine Comment: Evaluate, develop and implement POC Reason for Consult: dysphagia and concern for aspiration. Call Completed: No 11/07/18 13:07 Consult to Gastroenterology [CONS] Routine Consulting Provider: [facility] [place] Reason for Consult: dysphagia Time Notified: 13:07 Call Completed: Yes Discharging clinician: Dahiana Bowles Anticipated date of discharge: 11/11/18 - Constitutional Vitals: Temp Pulse Resp BP Pulse Ox 97.9 F 91 16 129/72 98 11/11/18 08:11 11/11/18 08:11 11/11/18 08:11 11/11/18 08:11 11/11/18 08:11 Exam: General Appearance: Elderly frail severely malnourished male Head: Atraumatic normocephalic Skin: Normal texture, normal turgor, warm, dry. Scattered bruises and generalized xerosis Eyes: Conjunctivae not pale with no erythema, drainage, or ulcers. Anicteric. Neck: No Lymphadenopathy in the anterior/posterior cervical chain. No thyromegaly, masses or ulcers. Trachea midline. Heart: tachycardic, grade 2 systolic murmurs. Capillary refill 5 seconds Lungs: moderate accessory muscle usage, lungs expiratory wheezes basilar BL. Extremities: No pitting edema, clubbing, or ulcers. Abdomen: Non-distended, normoactive bowel sounds. non-tender to palpation, no hepatomegally. No guarding. Neuro: AOx3 with no new sensory loss or focal deficits. MSK: Strength 5/5 Upper extremity equal bilaterally. Strength 5/5 Lower extremity equal bilaterally - Patient Status Disposition: Home, Self-Care Condition: Fair Functional capacity at discharge: independent ambulation Overall status at discharge: patient is back to baseline - Discharge Instructions Instructions: Omeprazole (By mouth), Levofloxacin (By mouth), Insulin Detemir (Injection), Diabetic Hypoglycemia (DC), Chronic Obstructive Pulmonary Disease (DC), Chronic Dysphagia (DC), Diabetic Hyperglycemia (DC) Follow Up With: Rich Trujillo DO [Primary Care Provider] - 11/15/18 2:00 pm Conor Bolton MD [Partnered Physician] - (Appointment has been requested.) - Diet and Activity Activity: increase activity as tolerated Diet: diabetic diet
== END 2018-11-11 13:30 | disposition home or self-care (01) | DRG 190 ==
LOC: SUATTDRO → 3BNU 14:51 → EMEROOARM 14:51 → 3BNU 18:47
PROVIDERS: ADMIT Internal Medicine; ATTEND Internal Medicine
PROC: ENDOEBX (2018-11-08 14:00)

== ENCOUNTER 2019-02-06 17:27 | Inpatient (IN) ==
[2019-02-06] MEDS ORDERED: methylPREDNISolone 125 MG/2 ML VIAL IVP ONE (17:30)
[2019-02-06] MEDS ORDERED: Isovue-370 500 ML BOTTLE IVP ONE (18:07)
[2019-02-06 18:08] LABS: Basophils % 0.2 %; Hematocrit 44.2 % (37.5-50.1); Hemoglobin 14.3 g/dL (12.9-16.9); Immature Granulocytes % 0.6 % (0-4); Lymphocytes # 0.4 K/mcL (0.6-4.6); Mean Corpuscular HGB Conc 32.4 g/dL (31.6-35.5); Mean Corpuscular Hemoglobin 28.9 pg (28.0-33.3); Mean Corpuscular Volume 89.5 fL (83.0-100.0); Mean Platelet Volume 10.1 fL (9.4-12.4); Monocytes # 0.3 K/mcL (0.0-1.3); Monocytes % 3.4 %; Neutrophils # 9.2 K/mcL (1.6-8.9); Platelet Count 298 K/mcL (140-400); Red Blood Count 4.94 M/mcL (4.19-5.50); Red Cell Distribution Width 13.5 % (11.5-14.5); Segmented Neutrophils % 91.8 %
[2019-02-06 18:08] LABS: VBG HCO3 35 mEq/L (21-27); VBG PCO2 61 mmHg (41-51); VBG PH 7.37 pH Units (7.32-7.42); VBG PO2 57 mmHg (25-50)
[2019-02-06 18:17] LABS: BUN/Creatinine Ratio 30 (6-26); Blood Urea Nitrogen 22 mg/dL (8-23); Calcium 8.7 mg/dL (8.6-10.3); Carbon Dioxide 35 mEq/L (23-29); Chloride 94 mEq/L (98-107); Glucose 396 mg/dL (70-105); Osmolality,Calculated 300 (280-300); Potassium 4.7 mEq/L (3.5-5.1); Sodium 135 mEq/L (136-145); eGFR For African Americans > 60 (> 60); eGFR For Non-African Americans > 60 (> 60)
[2019-02-06 18:20] LABS: Troponin I 0.04 ng/mL (< 0.04)
[2019-02-06] MEDS ORDERED: Aspirin 325 MG TABLET PO ONE (18:25)
[2019-02-06] MEDS ORDERED: 0.9 % Sodium Chloride 1,000 ML IVC ONE (19:18)
[2019-02-06] MEDS ORDERED: Ampicillin/Sulbactam 3,000 MG in 0.9 % Sodium Chloride Mini Bag 100 ML IVPB ONE (19:18)
[2019-02-06] MEDS ORDERED: Ringers Solution, Lactated 1,000 ML IVC SCH (20:00)
[2019-02-06] MEDS ORDERED: Ondansetron 4 MG/2 ML VIAL IVP PRN (20:01)
[2019-02-06] MEDS ORDERED: GuaiFENesin Liq 200 MG/10 ML UDC PO PRN (20:01)
[2019-02-06] MEDS ORDERED: Acetaminophen 325 MG TABLET PO PRN (20:01)
[2019-02-06] MEDS ORDERED: Dextrose Gel 15 GM/37.5 ML TUBE PO PRN ×2 (20:04)
[2019-02-06] MEDS ORDERED: *HR* Dextrose 50 % in Water (Syg) 50 ML SYRINGE IVP PRN (20:04)
[2019-02-06] MEDS: Insulin DETEMIR 100 UNIT/ML X5UNITS SQ SCH (21:15)
[2019-02-06] MEDS: Insulin LISPRO 300 UNITS/3 ML VIAL SQ SCH (21:16)
[2019-02-06] MEDS: *HR* Heparin 5,000 UNIT/ML VIAL SQ SCH (21:17)
[2019-02-06] MEDS: Nicotine 14 MG PATCH.TD24 TD SCH (22:13)
[2019-02-06] MEDS ORDERED: Insulin Human Regular 10 UNIT in 0.9 % Sodium Chloride 10 ML IV ONE (22:20)
[2019-02-06] MEDS ORDERED: *HR* LORazepam 2 MG/ML VIAL IVP ONE (23:30)
[2019-02-07] MEDS: Ipratropium/Albuterol Neb 3 ML IH SCH ×7 (00:10→23:17)
[2019-02-07] MEDS: Ampicillin/Sulbactam 3,000 MG in 0.9 % Sodium Chloride Mini Bag 100 ML IVPB SCH ×5 (00:57→23:53)
[2019-02-07 01:46] LABS: VBG HCO3 35 mEq/L (21-27); VBG PCO2 85 mmHg (41-51); VBG PH 7.23 pH Units (7.32-7.42); VBG PO2 63 mmHg (25-50)
[2019-02-07 04:50] LABS: VBG HCO3 37 mEq/L (21-27); VBG PCO2 89 mmHg (41-51); VBG PH 7.23 pH Units (7.32-7.42); VBG PO2 94 mmHg (25-50)
[2019-02-07] MEDS: *HR* Heparin 5,000 UNIT/ML VIAL SQ SCH ×3 (05:12→21:07)
[2019-02-07] MEDS: MethylPREDNISolone 40 MG/ML VIAL IVP SCH ×2 (05:12→17:12)
[2019-02-07 05:54] LABS: ABG Base Excess 8 mEq/L (-2 to 3); ABG HCO3 38 mEq/L (21-27); ABG Oxygen Saturation 98 % (95-98); ABG PCO2 77 mmHg (35-45); ABG PO2 112 mmHg (85-104); ABG TCO2 40 mEq/L (20-26)
[2019-02-07] MEDS ORDERED: Perflutren Lipid Microsphere 1.3 ML in 0.9 % Sodium Chloride 8.7 ML IVP ONE (08:42)
[2019-02-07] MEDS: Insulin LISPRO 300 UNITS/3 ML VIAL SQ SCH ×4 (09:09→21:06)
[2019-02-07] MEDS: Budesonide/Formoterol 160/4.5 1 PUFF INH IH SCH (20:14)
[2019-02-07] MEDS: Insulin DETEMIR 100 UNIT/ML X5UNITS SQ SCH (21:06)
[2019-02-07] MEDS: Nicotine 14 MG PATCH.TD24 TD SCH (21:07)
[2019-02-08 00:33] LABS: Hematocrit 41.3 % (37.5-50.1); Hemoglobin 12.8 g/dL (12.9-16.9); Mean Corpuscular Hemoglobin 28.3 pg (28.0-33.3); Mean Corpuscular Volume 91.4 fL (83.0-100.0); Mean Platelet Volume 10.1 fL (9.4-12.4); Platelet Count 285 K/mcL (140-400); Red Blood Count 4.52 M/mcL (4.19-5.50); Red Cell Distribution Width 13.4 % (11.5-14.5); White Blood Count 10.8 K/mcL (4.3-11.1)
[2019-02-08 00:36] LABS: VBG HCO3 36 mEq/L (21-27); VBG PCO2 89 mmHg (41-51); VBG PH 7.22 pH Units (7.32-7.42); VBG PO2 59 mmHg (25-50)
[2019-02-08 00:43] LABS: BUN/Creatinine Ratio 40 (6-26); Blood Urea Nitrogen 25 mg/dL (8-23); Calcium 8.9 mg/dL (8.6-10.3); Carbon Dioxide 34 mEq/L (23-29); Chloride 98 mEq/L (98-107); Glucose 234 mg/dL (70-105); Osmolality,Calculated 296 (280-300); Potassium 4.6 mEq/L (3.5-5.1); Sodium 137 mEq/L (136-145); eGFR For African Americans > 60 (> 60); eGFR For Non-African Americans > 60 (> 60)
[2019-02-08] MEDS: Ipratropium/Albuterol Neb 3 ML IH SCH ×6 (03:44→23:14)
[2019-02-08] MEDS: Ampicillin/Sulbactam 3,000 MG in 0.9 % Sodium Chloride Mini Bag 100 ML IVPB SCH ×3 (05:51→16:47)
[2019-02-08] MEDS: MethylPREDNISolone 40 MG/ML VIAL IVP SCH ×2 (05:51→16:46)
[2019-02-08] MEDS: *HR* Heparin 5,000 UNIT/ML VIAL SQ SCH ×3 (05:51→21:51)
[2019-02-08 06:19] LABS: VBG HCO3 38 mEq/L (21-27); VBG PCO2 73 mmHg (41-51); VBG PH 7.32 pH Units (7.32-7.42); VBG PO2 92 mmHg (25-50)
[2019-02-08] MEDS: Budesonide/Formoterol 160/4.5 1 PUFF INH IH SCH ×2 (07:20→20:25)
[2019-02-08] MEDS: Aspirin Enteric Coated 81 MG Tablet PO SCH (08:35)
[2019-02-08] MEDS: Insulin LISPRO 300 UNITS/3 ML VIAL SQ SCH ×4 (08:35→21:52)
[2019-02-08] MEDS: Insulin DETEMIR 100 UNIT/ML X5UNITS SQ SCH ×2 (08:36→21:53)
[2019-02-08] MEDS ORDERED: E-Z-PAQUE (BARIUM SULF) SUSP 1 BOTTLE PO ONE (10:43)
[2019-02-08] MEDS ORDERED: E-Z-HD (BARIUM SULF) SUSPENSION PO ONE (10:43)
[2019-02-08] MEDS ORDERED: Insulin LISPRO 300 UNITS/3 ML VIAL SQ SCH (16:30)
[2019-02-08] MEDS: Nicotine 14 MG PATCH.TD24 TD SCH (21:52)
[2019-02-09] MEDS: Ampicillin/Sulbactam 3,000 MG in 0.9 % Sodium Chloride Mini Bag 100 ML IVPB SCH ×4 (00:46→17:10)
[2019-02-09] MEDS: Ipratropium/Albuterol Neb 3 ML IH SCH ×6 (04:04→23:46)
[2019-02-09] MEDS: *HR* Heparin 5,000 UNIT/ML VIAL SQ SCH ×2 (05:39→15:37)
[2019-02-09] MEDS: MethylPREDNISolone 40 MG/ML VIAL IVP SCH ×2 (05:39→17:10)
[2019-02-09 06:02] LABS: ABG Base Excess 12 mEq/L (-2 to 3); ABG HCO3 41 mEq/L (21-27); ABG Oxygen Saturation 94 % (95-98); ABG PCO2 74 mmHg (35-45); ABG PH 7.35 pH Units (7.32-7.45); ABG PO2 76 mmHg (85-104); ABG TCO2 43 mEq/L (20-26)
[2019-02-09] MEDS: Budesonide/Formoterol 160/4.5 1 PUFF INH IH SCH ×2 (07:29→19:38)
[2019-02-09] MEDS: Aspirin Enteric Coated 81 MG Tablet PO SCH (08:54)
[2019-02-09] MEDS: Insulin DETEMIR 100 UNIT/ML X5UNITS SQ SCH ×2 (09:00→22:00)
[2019-02-09] MEDS: Insulin LISPRO 300 UNITS/3 ML VIAL SQ SCH ×7 (09:00→22:00)
[2019-02-10] MEDS ORDERED: *HR* LORazepam 2 MG/ML VIAL IVP ONE ×2 (01:57→21:40)
[2019-02-10] MEDS: Ampicillin/Sulbactam 3,000 MG in 0.9 % Sodium Chloride Mini Bag 100 ML IVPB SCH (02:08)
[2019-02-10] MEDS: Nicotine 14 MG PATCH.TD24 TD SCH ×2 (02:19→21:03)
[2019-02-10] MEDS: *HR* Heparin 5,000 UNIT/ML VIAL SQ SCH ×3 (02:20→15:46)
[2019-02-10] MEDS: Ipratropium/Albuterol Neb 3 ML IH SCH ×6 (03:56→23:30)
[2019-02-10] MEDS: MethylPREDNISolone 40 MG/ML VIAL IVP SCH ×2 (05:59→17:05)
[2019-02-10 06:42] LABS: Basophils % 0.2 %; Hematocrit 41.5 % (37.5-50.1); Hemoglobin 13.2 g/dL (12.9-16.9); Immature Granulocytes % 1.6 % (0-4); Lymphocytes # 0.7 K/mcL (0.6-4.6); Lymphocytes % 6.8 %; Mean Corpuscular HGB Conc 31.8 g/dL (31.6-35.5); Mean Corpuscular Hemoglobin 28.4 pg (28.0-33.3); Mean Corpuscular Volume 89.4 fL (83.0-100.0); Mean Platelet Volume 9.5 fL (9.4-12.4); Monocytes # 0.5 K/mcL (0.0-1.3); Neutrophils # 8.6 K/mcL (1.6-8.9); Platelet Count 255 K/mcL (140-400); Red Blood Count 4.64 M/mcL (4.19-5.50); Red Cell Distribution Width 13.7 % (11.5-14.5); Segmented Neutrophils % 86.4 %; White Blood Count 9.9 K/mcL (4.3-11.1)
[2019-02-10 07:05] LABS: BUN/Creatinine Ratio 45 (6-26); Blood Urea Nitrogen 27 mg/dL (8-23); Calcium 8.9 mg/dL (8.6-10.3); Carbon Dioxide 40 mEq/L (23-29); Chloride 93 mEq/L (98-107); Glucose 285 mg/dL (70-105); Osmolality,Calculated 299 (280-300); Potassium 4.5 mEq/L (3.5-5.1); Sodium 137 mEq/L (136-145); eGFR For African Americans > 60 (> 60); eGFR For Non-African Americans > 60 (> 60)
[2019-02-10] MEDS: Budesonide/Formoterol 160/4.5 1 PUFF INH IH SCH ×2 (07:37→20:11)
[2019-02-10] MEDS ORDERED: Ampicillin/Sulbactam 3,000 MG in 0.9 % Sodium Chloride Mini Bag 100 ML IVPB SCH (08:00)
[2019-02-10] MEDS: Insulin LISPRO 300 UNITS/3 ML VIAL SQ SCH ×7 (08:25→21:02)
[2019-02-10] MEDS: Aspirin Enteric Coated 81 MG Tablet PO SCH (08:25)
[2019-02-10] MEDS: Insulin DETEMIR 100 UNIT/ML X5UNITS SQ SCH ×2 (08:30→21:03)
[2019-02-10] MEDS: levoFLOXacin 750 MG/150 ML 750 MG/150 ML BAG IVPB SCH (12:09)
[2019-02-10 15:19] LABS: Adenovirus Not Detected (Not Detect); Bordetella Pertussis Not Detected (Not Detect); Chlamydophila pneumoniae Not Detected (Not Detect); Coronavirus 229E Not Detected (Not Detect); Coronavirus HKU1 Not Detected (Not Detect); Coronavirus NL63 Not Detected (Not Detect); Coronavirus OC43 Not Detected (Not Detect); Human Metapneumovirus Not Detected (Not Detect); Human Rhinovirus/Enterovirus Not Detected (Not Detect); Influenza A Subtype 2009 H1 Not Detected (Not Detect); Influenza A Untypeable Not Detected (Not Detect); Influenza B Not Detected (Not Detect); Mycoplasma pneumoniae Not Detected (Not Detect); Parainfluenza Virus 1 Not Detected (Not Detect); Parainfluenza Virus 2 Not Detected (Not Detect); Parainfluenza Virus 3 Not Detected (Not Detect); Parainfluenza Virus 4 Not Detected (Not Detect); Respiratory Syncytial Virus Not Detected (Not Detect)
[2019-02-10 16:05] LABS: INR 0.9; Prothrombin Time 10.7 Seconds (9.4-12.1)
[2019-02-10] MEDS ORDERED: Morphine Sulfate 2 MG/ML SYRINGE IVP PRN ×3 (17:31→18:58)
[2019-02-11] MEDS: Ipratropium/Albuterol Neb 3 ML IH SCH ×6 (04:15→23:19)
[2019-02-11] MEDS: *HR* Heparin 5,000 UNIT/ML VIAL SQ SCH ×4 (04:59→20:25)
[2019-02-11] MEDS: MethylPREDNISolone 40 MG/ML VIAL IVP SCH (05:41)
[2019-02-11] MEDS: Budesonide/Formoterol 160/4.5 1 PUFF INH IH SCH ×2 (07:42→19:48)
[2019-02-11] MEDS: levoFLOXacin 750 MG/150 ML 750 MG/150 ML BAG IVPB SCH (08:33)
[2019-02-11] MEDS: Insulin LISPRO 300 UNITS/3 ML VIAL SQ SCH ×7 (08:34→20:29)
[2019-02-11] MEDS ORDERED: *HR* Propofol 200 MG/20 ML VIAL IVP ONE (12:06)
[2019-02-11] MEDS ORDERED: *HR* Succinylcholine 200 MG/10 ML VIAL IVP ONE (12:08)
[2019-02-11] MEDS ORDERED: Lidocaine -MPF 2% 2 ML VIAL ONE (12:08)
[2019-02-11] MEDS ORDERED: Lidocaine -MPF 4% 5 ML AMPUL ONE (12:10)
[2019-02-11] MEDS ORDERED: 0.9 % Sodium Chloride 500 ML IVC SCH (12:15)
[2019-02-11] MEDS ORDERED: *HR* PHENYLEPHRINE 1,000 MCG/10 ML SYRINGE IVP ONE (12:58)
[2019-02-11] MEDS: Aspirin Enteric Coated 81 MG Tablet PO SCH (15:09)
[2019-02-11] MEDS: predniSONE 20 MG TABLET PO SCH (15:11)
[2019-02-11] MEDS: Insulin DETEMIR 100 UNIT/ML X5UNITS SQ SCH ×2 (16:42→20:13)
[2019-02-11 18:08] LABS: Appearance of Body Fluid Slightly Hazy (Clear); Volume of Body Fluid 10 mL
[2019-02-11 18:10] LABS: Appearance of Body Fluid Slightly Hazy (Clear); Volume of Body Fluid 11 mL
[2019-02-11] MEDS: Nicotine 14 MG PATCH.TD24 TD SCH (20:10)
[2019-02-12 02:36] LABS: Hematocrit 38.7 % (37.5-50.1); Hemoglobin 11.8 g/dL (12.9-16.9); Mean Corpuscular HGB Conc 30.5 g/dL (31.6-35.5); Mean Corpuscular Hemoglobin 28.2 pg (28.0-33.3); Mean Corpuscular Volume 92.4 fL (83.0-100.0); Mean Platelet Volume 9.9 fL (9.4-12.4); Platelet Count 248 K/mcL (140-400); Red Blood Count 4.19 M/mcL (4.19-5.50); Red Cell Distribution Width 13.5 % (11.5-14.5); White Blood Count 10.9 K/mcL (4.3-11.1)
[2019-02-12 02:58] LABS: BUN/Creatinine Ratio 33 (6-26); Blood Urea Nitrogen 27 mg/dL (8-23); Calcium 8.4 mg/dL (8.6-10.3); Carbon Dioxide 34 mEq/L (23-29); Chloride 96 mEq/L (98-107); Glucose 132 mg/dL (70-105); Osmolality,Calculated 289 (280-300); Potassium 4.6 mEq/L (3.5-5.1); Sodium 136 mEq/L (136-145); eGFR For African Americans > 60 (> 60); eGFR For Non-African Americans > 60 (> 60)
[2019-02-12] MEDS: Ipratropium/Albuterol Neb 3 ML IH SCH ×3 (03:33→11:15)
[2019-02-12] MEDS ORDERED: *HR* LORazepam 2 MG/ML VIAL IVP ONE (04:38)
[2019-02-12 04:40] LABS: ABG Base Excess 12 mEq/L (-2 to 3); ABG HCO3 40 mEq/L (21-27); ABG Oxygen Saturation 94 % (95-98); ABG PCO2 72 mmHg (35-45); ABG PH 7.36 pH Units (7.32-7.45); ABG PO2 79 mmHg (85-104); ABG TCO2 42 mEq/L (20-26)
[2019-02-12] MEDS: *HR* Heparin 5,000 UNIT/ML VIAL SQ SCH (04:45)
[2019-02-12 06:30] VITALS: BP 123/99
[2019-02-12] MEDS: Budesonide/Formoterol 160/4.5 1 PUFF INH IH SCH (07:42)
[2019-02-12] MEDS: Insulin LISPRO 300 UNITS/3 ML VIAL SQ SCH ×2 (07:49→07:50)
[2019-02-12] MEDS: predniSONE 20 MG TABLET PO SCH (08:44)
[2019-02-12] MEDS: Aspirin Enteric Coated 81 MG Tablet PO SCH (08:44)
[2019-02-12] MEDS: levoFLOXacin 750 MG/150 ML 750 MG/150 ML BAG IVPB SCH (08:45)
[2019-02-12] MEDS: Insulin DETEMIR 100 UNIT/ML X5UNITS SQ SCH (09:05)
[2019-02-15 10:59] LABS: Influenza A PCR Body Fluid NOT DETECTED; Influenza B PCR Body Fluid NOT DETECTED
[2019-02-16 08:50] LABS: RSV PCR Body Fluid NOT DETECTED; RVP Body Fluid Source NOT PROVIDED
== END 2019-02-12 14:31 | disposition home or self-care (01) | DRG 189 ==
LOC: EMEROOARM 17:27 → 2NENU 17:27 → SUATTDRO 19:29 → 2NENU 20:18 → SUATTDRO 02-07 11:00
PROVIDERS: ADMIT Internal Medicine; ATTEND Internal Medicine

== ENCOUNTER 2019-03-12 08:01 | Inpatient (IN) ==
[2019-03-12] MEDS ORDERED: Naloxone 0.4 MG/ML INJ IVP PRN (10:54)
[2019-03-12] MEDS ORDERED: *HR* Dextrose 50 % in Water (Syg) 50 ML SYRINGE IVP PRN (10:55)
[2019-03-12] MEDS ORDERED: D5% in Water 1,000 ML IVC PRN (10:55)
[2019-03-12] MEDS ORDERED: Dextrose Gel 15 GM/37.5 ML TUBE PO PRN ×2 (10:55)
[2019-03-12] MEDS: Insulin LISPRO 300 UNITS/3 ML VIAL SQ SCH ×2 (11:53→16:12)
[2019-03-12] MEDS: ALPRAZolam 0.25 MG TABLET PO PRN (15:23)
[2019-03-12] MEDS: Ipratropium/Albuterol Neb 3 ML IH PRN (15:35)
[2019-03-12] MEDS: *HR* Enoxaparin 80 MG/0.8 ML SYRINGE SQ SCH (16:35)
[2019-03-13 01:52] LABS: ABG Base Excess 13 mEq/L (-2 to 3); ABG HCO3 41 mEq/L (21-27); ABG Oxygen Saturation 99 % (95-98); ABG PCO2 74 mmHg (35-45); ABG PH 7.35 pH Units (7.32-7.45); ABG PO2 127 mmHg (85-104); ABG TCO2 43 mEq/L (20-26)
[2019-03-13] MEDS: *HR* Enoxaparin 80 MG/0.8 ML SYRINGE SQ SCH ×2 (03:58→16:21)
[2019-03-13] MEDS: ALPRAZolam 0.25 MG TABLET PO PRN ×2 (03:58→10:39)
[2019-03-13] MEDS ORDERED: *HR* Metoprolol 5 MG/5 ML VIAL IVP ONE ×2 (06:41→06:43)
[2019-03-13] MEDS: Aspirin Enteric Coated 81 MG Tablet PO SCH (08:32)
[2019-03-13] MEDS: Insulin LISPRO 300 UNITS/3 ML VIAL SQ SCH ×3 (08:33→16:21)
[2019-03-13] MEDS ORDERED: Perflutren Lipid Microsphere 1.3 ML in 0.9 % Sodium Chloride 8.7 ML IVP ONE (10:52)
[2019-03-13] MEDS: Ipratropium/Albuterol Neb 3 ML IH PRN ×2 (11:16→15:51)
[2019-03-13] MEDS: hydrOXYzine pamoate 25 MG CAPSULE PO PRN ×2 (13:28→14:39)
[2019-03-13] MEDS: Metoprolol XL (24 HR) Succ 25 MG TAB.ER.24H PO SCH (13:28)
[2019-03-13] MEDS ORDERED: *HR* Metoprolol 5 MG/5 ML VIAL IVP PRN (13:45)
[2019-03-13 14:43] LABS: Basophils % 0.4 %; Eosinophils # 0.1 K/mcL (0.0-0.6); Eosinophils % 1.3 %; Hematocrit 34.5 % (37.5-50.1); Hemoglobin 10.7 g/dL (12.9-16.9); Immature Granulocytes % 1.8 % (0-4); Lymphocytes # 0.7 K/mcL (0.6-4.6); Lymphocytes % 13.1 %; Mean Corpuscular Hemoglobin 28.7 pg (28.0-33.3); Mean Corpuscular Volume 92.5 fL (83.0-100.0); Mean Platelet Volume 9.7 fL (9.4-12.4); Monocytes # 0.5 K/mcL (0.0-1.3); Monocytes % 9.9 %; Platelet Count 315 K/mcL (140-400); Red Blood Count 3.73 M/mcL (4.19-5.50); Red Cell Distribution Width 15.2 % (11.5-14.5); Segmented Neutrophils % 73.5 %; White Blood Count 5.4 K/mcL (4.3-11.1)
[2019-03-13 15:17] LABS: BUN/Creatinine Ratio 45 (6-26); Blood Urea Nitrogen 37 mg/dL (8-23); Calcium 8.4 mg/dL (8.6-10.3); Carbon Dioxide 35 mEq/L (23-29); Chloride 92 mEq/L (98-107); Glucose 285 mg/dL (70-105); Osmolality,Calculated 303 (280-300); Potassium 5.2 mEq/L (3.5-5.1); Sodium 137 mEq/L (136-145); eGFR For African Americans > 60 (> 60); eGFR For Non-African Americans > 60 (> 60)
[2019-03-13] MEDS ORDERED: Warfarin perPT PO PRN (18:00)
[2019-03-13] MEDS ORDERED: *HR* Warfarin 5 MG TABLET PO ONE (18:00)
[2019-03-14] MEDS: *HR* Enoxaparin 80 MG/0.8 ML SYRINGE SQ SCH ×2 (05:07→17:10)
[2019-03-14 05:43] LABS: Prothrombin Time 11.2 Seconds (9.4-12.1)
[2019-03-14 05:50] LABS: BUN/Creatinine Ratio 56 (6-26); Blood Urea Nitrogen 35 mg/dL (8-23); Calcium 8.2 mg/dL (8.6-10.3); Carbon Dioxide 37 mEq/L (23-29); Chloride 96 mEq/L (98-107); Glucose 325 mg/dL (70-105); Osmolality,Calculated 315 (280-300); Potassium 5.2 mEq/L (3.5-5.1); Sodium 142 mEq/L (136-145); eGFR For African Americans > 60 (> 60); eGFR For Non-African Americans > 60 (> 60)
[2019-03-14 06:30] LABS: Basophils % 0.7 %; Eosinophils # 0.1 K/mcL (0.0-0.6); Eosinophils % 2.5 %; Hematocrit 34.9 % (37.5-50.1); Hemoglobin 10.8 g/dL (12.9-16.9); Immature Granulocytes % 3.2 % (0-4); Lymphocytes # 0.9 K/mcL (0.6-4.6); Lymphocytes % 14.9 %; Mean Corpuscular HGB Conc 30.9 g/dL (31.6-35.5); Mean Corpuscular Hemoglobin 28.6 pg (28.0-33.3); Mean Corpuscular Volume 92.3 fL (83.0-100.0); Mean Platelet Volume 9.5 fL (9.4-12.4); Monocytes # 0.6 K/mcL (0.0-1.3); Monocytes % 10.7 %; Neutrophils # 3.9 K/mcL (1.6-8.9); Platelet Count 282 K/mcL (140-400); Red Blood Count 3.78 M/mcL (4.19-5.50); Red Cell Distribution Width 15.1 % (11.5-14.5); White Blood Count 5.7 K/mcL (4.3-11.1)
[2019-03-14] MEDS: Insulin LISPRO 300 UNITS/3 ML VIAL SQ SCH ×4 (07:53→22:00)
[2019-03-14] MEDS: Aspirin Enteric Coated 81 MG Tablet PO SCH (07:53)
[2019-03-14] MEDS: Metoprolol XL (24 HR) Succ 25 MG TAB.ER.24H PO SCH (07:53)
[2019-03-14] MEDS: Insulin DETEMIR 100 UNIT/ML X5UNITS SQ SCH (07:53)
[2019-03-14] MEDS ORDERED: Diltiazem CD (24hr) 120 MG CAPSULE PO SCH (09:00)
[2019-03-14] MEDS: Budesonide/Formoterol 160/4.5 1 PUFF INH IH SCH ×2 (10:23→22:24)
[2019-03-14] MEDS: Ipratropium/Albuterol Neb 3 ML IH PRN ×2 (10:24→15:47)
[2019-03-14] MEDS: ALPRAZolam 0.25 MG TABLET PO PRN (12:06)
[2019-03-14] MEDS ORDERED: Furosemide 40 MG/4 ML VIAL IVP ONE (12:46)
[2019-03-14] MEDS ORDERED: Perflutren Lipid Microsphere 1.3 ML in 0.9 % Sodium Chloride 8.7 ML IVP ONE (15:25)
[2019-03-14] MEDS: hydrOXYzine pamoate 25 MG CAPSULE PO PRN (15:46)
[2019-03-14] MEDS ORDERED: *HR* Warfarin 3 MG TABLET PO ONE (18:00)
[2019-03-14] MEDS ORDERED: Insulin Human Regular 10 UNIT in 0.9 % Sodium Chloride 10 ML IV ONE (23:47)
[2019-03-15 03:19] LABS: INR 1.1; Prothrombin Time 12.5 Seconds (9.4-12.1)
[2019-03-15 03:37] LABS: BUN/Creatinine Ratio 55 (6-26); Blood Urea Nitrogen 32 mg/dL (8-23); Calcium 8.6 mg/dL (8.6-10.3); Carbon Dioxide 42 mEq/L (23-29); Chloride 93 mEq/L (98-107); Glucose 80 mg/dL (70-105); Osmolality,Calculated 294 (280-300); Potassium 4.4 mEq/L (3.5-5.1); Sodium 139 mEq/L (136-145); eGFR For African Americans > 60 (> 60); eGFR For Non-African Americans > 60 (> 60)
[2019-03-15] MEDS: *HR* Enoxaparin 80 MG/0.8 ML SYRINGE SQ SCH ×2 (05:38→18:09)
[2019-03-15] MEDS: Budesonide/Formoterol 160/4.5 1 PUFF INH IH SCH ×2 (07:40→20:26)
[2019-03-15] MEDS: Tiotropium 18 MCG inhalation IH SCH (07:40)
[2019-03-15] MEDS: Aspirin Enteric Coated 81 MG Tablet PO SCH (09:08)
[2019-03-15] MEDS: Insulin LISPRO 300 UNITS/3 ML VIAL SQ SCH ×5 (09:08→21:19)
[2019-03-15] MEDS: Metoprolol XL (24 HR) Succ 25 MG TAB.ER.24H PO SCH (09:10)
[2019-03-15] MEDS: Diltiazem CD (24hr) 180 MG CAPSULE PO SCH (09:10)
[2019-03-15] MEDS: Insulin DETEMIR 100 UNIT/ML X5UNITS SQ SCH (09:12)
[2019-03-15] MEDS: ALPRAZolam 0.25 MG TABLET PO PRN (14:45)
[2019-03-15] MEDS ORDERED: *HR* Warfarin 5 MG TABLET PO ONE (18:00)
[2019-03-16] MEDS: ALPRAZolam 0.25 MG TABLET PO PRN ×3 (00:51→21:07)
[2019-03-16] MEDS: Ipratropium/Albuterol Neb 3 ML IH PRN ×2 (03:15→14:50)
[2019-03-16] MEDS: *HR* Enoxaparin 80 MG/0.8 ML SYRINGE SQ SCH ×2 (05:52→17:01)
[2019-03-16 06:33] LABS: INR 1.3; Prothrombin Time 14.8 Seconds (9.4-12.1)
[2019-03-16 07:01] LABS: BUN/Creatinine Ratio 41 (6-26); Blood Urea Nitrogen 24 mg/dL (8-23); Calcium 8.6 mg/dL (8.6-10.3); Carbon Dioxide 41 mEq/L (23-29); Chloride 90 mEq/L (98-107); Glucose 299 mg/dL (70-105); Osmolality,Calculated 297 (280-300); Potassium 4.7 mEq/L (3.5-5.1); Sodium 136 mEq/L (136-145); eGFR For African Americans > 60 (> 60); eGFR For Non-African Americans > 60 (> 60)
[2019-03-16] MEDS: Budesonide/Formoterol 160/4.5 1 PUFF INH IH SCH ×2 (09:42→20:21)
[2019-03-16] MEDS: Tiotropium 18 MCG inhalation IH SCH (09:42)
[2019-03-16 09:49] LABS: ABG Base Excess 14 mEq/L (-2 to 3); ABG HCO3 42 mEq/L (21-27); ABG Oxygen Saturation 98 % (95-98); ABG PCO2 78 mmHg (35-45); ABG PH 7.34 pH Units (7.32-7.45); ABG PO2 115 mmHg (85-104); ABG TCO2 45 mEq/L (20-26)
[2019-03-16] MEDS: Insulin LISPRO 300 UNITS/3 ML VIAL SQ SCH ×7 (10:01→21:43)
[2019-03-16] MEDS: Insulin DETEMIR 100 UNIT/ML X5UNITS SQ SCH ×2 (10:02→21:43)
[2019-03-16] MEDS: Diltiazem CD (24hr) 180 MG CAPSULE PO SCH (10:02)
[2019-03-16] MEDS: Metoprolol XL (24 HR) Succ 25 MG TAB.ER.24H PO SCH (10:02)
[2019-03-16] MEDS: Aspirin Enteric Coated 81 MG Tablet PO SCH (10:02)
[2019-03-16] MEDS ORDERED: acetaZOLAMIDE 250 MG TABLET PO ONE (14:55)
[2019-03-16] MEDS ORDERED: *HR* Warfarin 3 MG TABLET PO ONE (18:00)
[2019-03-17] MEDS: *HR* Enoxaparin 80 MG/0.8 ML SYRINGE SQ SCH (05:30)
[2019-03-17 08:01] LABS: INR 1.5
[2019-03-17 08:04] LABS: Hematocrit 34.5 % (37.5-50.1); Hemoglobin 10.4 g/dL (12.9-16.9); Mean Corpuscular HGB Conc 30.1 g/dL (31.6-35.5); Mean Corpuscular Hemoglobin 28.5 pg (28.0-33.3); Mean Corpuscular Volume 94.5 fL (83.0-100.0); Mean Platelet Volume 9.5 fL (9.4-12.4); Platelet Count 338 K/mcL (140-400); Red Blood Count 3.65 M/mcL (4.19-5.50); Red Cell Distribution Width 14.8 % (11.5-14.5); White Blood Count 7.5 K/mcL (4.3-11.1)
[2019-03-17 08:17] LABS: BUN/Creatinine Ratio 33 (6-26); Blood Urea Nitrogen 19 mg/dL (8-23); Calcium 8.7 mg/dL (8.6-10.3); Carbon Dioxide 36 mEq/L (23-29); Chloride 95 mEq/L (98-107); Glucose 223 mg/dL (70-105); Osmolality,Calculated 293 (280-300); Potassium 4.5 mEq/L (3.5-5.1); Sodium 137 mEq/L (136-145); eGFR For African Americans > 60 (> 60); eGFR For Non-African Americans > 60 (> 60)
[2019-03-17 08:38] LABS: Eosinophils # 0.3 K/mcL (0.0-0.6); Lymphocytes # 1.5 K/mcL (0.6-4.6); Monocytes # 0.8 K/mcL (0.0-1.3)
[2019-03-17 08:41] LABS: Platelet Estimate Normal (Normal)
[2019-03-17] MEDS: Aspirin Enteric Coated 81 MG Tablet PO SCH (09:09)
[2019-03-17] MEDS: Insulin LISPRO 300 UNITS/3 ML VIAL SQ SCH ×6 (09:10→16:35)
[2019-03-17] MEDS: Diltiazem CD (24hr) 180 MG CAPSULE PO SCH (09:10)
[2019-03-17] MEDS: Metoprolol XL (24 HR) Succ 25 MG TAB.ER.24H PO SCH (09:10)
[2019-03-17] MEDS: Insulin DETEMIR 100 UNIT/ML X5UNITS SQ SCH (09:19)
[2019-03-17] MEDS: Budesonide/Formoterol 160/4.5 1 PUFF INH IH SCH ×2 (10:04→21:17)
[2019-03-17] MEDS: Tiotropium 18 MCG inhalation IH SCH (10:04)
[2019-03-17] MEDS: Silvasorb 44.4 ML TUBE TP SCH (15:27)
[2019-03-17] MEDS: ALPRAZolam 0.25 MG TABLET PO PRN ×2 (15:29→20:13)
[2019-03-17] MEDS ORDERED: Dextrose Gel 15 GM/37.5 ML TUBE PO PRN ×2 (17:24)
[2019-03-17] MEDS ORDERED: *HR* Dextrose 50 % in Water (Syg) 50 ML SYRINGE IVP PRN (17:24)
[2019-03-17] MEDS ORDERED: D5% in Water 1,000 ML IVC PRN (17:24)
[2019-03-17] MEDS: hydrOXYzine pamoate 25 MG CAPSULE PO PRN (20:14)
[2019-03-17] MEDS ORDERED: Insulin DETEMIR 100 UNIT/ML X5UNITS SQ SCH ×2 (21:00)
[2019-03-17] MEDS ORDERED: Apixaban 5 MG TABLET PO SCH (21:00)
[2019-03-17] MEDS ORDERED: Insulin LISPRO 300 UNITS/3 ML VIAL SQ SCH (21:00)
[2019-03-18 06:03] LABS: INR 1.3; Prothrombin Time 14.3 Seconds (9.4-12.1)
[2019-03-18] MEDS ORDERED: Insulin LISPRO 300 UNITS/3 ML VIAL SQ SCH (07:30)
[2019-03-18] MEDS ORDERED: Dextrose Gel 15 GM/37.5 ML TUBE PO PRN ×2 (07:43)
[2019-03-18] MEDS ORDERED: *HR* Dextrose 50 % in Water (Syg) 50 ML SYRINGE IVP PRN (07:43)
[2019-03-18] MEDS ORDERED: D5% in Water 1,000 ML IVC PRN (07:43)
[2019-03-18] MEDS: Insulin LISPRO 300 UNITS/3 ML VIAL SQ SCH ×3 (09:00→17:18)
[2019-03-18] MEDS: Silvasorb 44.4 ML TUBE TP SCH (09:12)
[2019-03-18] MEDS: Metoprolol XL (24 HR) Succ 25 MG TAB.ER.24H PO SCH (09:12)
[2019-03-18] MEDS: Aspirin Enteric Coated 81 MG Tablet PO SCH (09:12)
[2019-03-18] MEDS: Diltiazem CD (24hr) 180 MG CAPSULE PO SCH (09:12)
[2019-03-18] MEDS: ALPRAZolam 0.25 MG TABLET PO PRN ×2 (09:25→21:01)
[2019-03-18] MEDS: Budesonide/Formoterol 160/4.5 1 PUFF INH IH SCH ×2 (10:17→22:19)
[2019-03-18] MEDS: Tiotropium 18 MCG inhalation IH SCH (10:18)
[2019-03-18] MEDS: Insulin DETEMIR 100 UNIT/ML X5UNITS SQ SCH ×2 (11:31→21:04)
[2019-03-18] MEDS: hydrOXYzine pamoate 25 MG CAPSULE PO PRN (21:01)
[2019-03-19 07:34] LABS: Hemoglobin 10.6 g/dL (12.9-16.9); Mean Corpuscular HGB Conc 30.3 g/dL (31.6-35.5); Mean Corpuscular Hemoglobin 28.3 pg (28.0-33.3); Mean Corpuscular Volume 93.6 fL (83.0-100.0); Mean Platelet Volume 9.4 fL (9.4-12.4); Monocytes # 0.8 K/mcL (0.0-1.3); Platelet Count 371 K/mcL (140-400); Red Blood Count 3.74 M/mcL (4.19-5.50); Red Cell Distribution Width 15.2 % (11.5-14.5); White Blood Count 7.5 K/mcL (4.3-11.1)
[2019-03-19 07:45] LABS: INR 1.1; Prothrombin Time 12.9 Seconds (9.4-12.1)
[2019-03-19 07:57] LABS: Lymphocytes # 1.4 K/mcL (0.6-4.6); Neutrophils # 5.4 K/mcL (1.6-8.9)
[2019-03-19 07:58] LABS: Platelet Estimate Normal (Normal)
[2019-03-19] MEDS: Metoprolol XL (24 HR) Succ 25 MG TAB.ER.24H PO SCH (08:00)
[2019-03-19] MEDS: Diltiazem CD (24hr) 180 MG CAPSULE PO SCH (08:00)
[2019-03-19] MEDS: Aspirin Enteric Coated 81 MG Tablet PO SCH (08:00)
[2019-03-19] MEDS: Silvasorb 44.4 ML TUBE TP SCH (08:01)
[2019-03-19] MEDS: Insulin DETEMIR 100 UNIT/ML X5UNITS SQ SCH ×2 (08:01→21:40)
[2019-03-19] MEDS: Insulin LISPRO 300 UNITS/3 ML VIAL SQ SCH ×3 (08:01→17:10)
[2019-03-19] MEDS: Nicotine 14 MG PATCH.TD24 TD SCH (08:01)
[2019-03-19 09:02] LABS: Carbon Dioxide 40 mEq/L (23-29)
[2019-03-19 09:36] LABS: BUN/Creatinine Ratio 31 (6-26); Blood Urea Nitrogen 17 mg/dL (8-23); Calcium 8.8 mg/dL (8.6-10.3); Chloride 95 mEq/L (98-107); Glucose 136 mg/dL (70-105); Magnesium 1.6 mg/dL (1.6-2.6); Osmolality,Calculated 292 (280-300); Potassium 4.6 mEq/L (3.5-5.1); Sodium 139 mEq/L (136-145); eGFR For African Americans > 60 (> 60); eGFR For Non-African Americans > 60 (> 60)
[2019-03-19] MEDS: Tiotropium 18 MCG inhalation IH SCH (09:56)
[2019-03-19] MEDS: Budesonide/Formoterol 160/4.5 1 PUFF INH IH SCH ×2 (09:56→20:28)
[2019-03-19] MEDS: ALPRAZolam 0.25 MG TABLET PO PRN ×2 (14:51→21:14)
[2019-03-19] MEDS: Ipratropium/Albuterol Neb 3 ML IH PRN (17:15)
[2019-03-19] MEDS: hydrOXYzine pamoate 25 MG CAPSULE PO PRN (21:14)
[2019-03-20 05:02] LABS: Basophils # 0.1 K/mcL (0.0-0.2); Basophils % 0.8 %; Eosinophils # 0.1 K/mcL (0.0-0.6); Eosinophils % 1.3 %; Hematocrit 31.9 % (37.5-50.1); Hemoglobin 9.7 g/dL (12.9-16.9); Immature Granulocytes % 4.7 % (0-4); Lymphocytes # 0.9 K/mcL (0.6-4.6); Lymphocytes % 11.4 %; Mean Corpuscular HGB Conc 30.4 g/dL (31.6-35.5); Mean Corpuscular Hemoglobin 28.6 pg (28.0-33.3); Mean Corpuscular Volume 94.1 fL (83.0-100.0); Mean Platelet Volume 9.6 fL (9.4-12.4); Monocytes % 12.4 %; Neutrophils # 5.4 K/mcL (1.6-8.9); Platelet Count 362 K/mcL (140-400); Red Blood Count 3.39 M/mcL (4.19-5.50); Segmented Neutrophils % 69.4 %; White Blood Count 7.8 K/mcL (4.3-11.1)
[2019-03-20 05:10] LABS: INR 1.1; Prothrombin Time 12.3 Seconds (9.4-12.1)
[2019-03-20 05:38] LABS: BUN/Creatinine Ratio 39 (6-26); Blood Urea Nitrogen 24 mg/dL (8-23); Calcium 8.5 mg/dL (8.6-10.3); Carbon Dioxide 40 mEq/L (23-29); Chloride 92 mEq/L (98-107); Glucose 344 mg/dL (70-105); Magnesium 1.6 mg/dL (1.6-2.6); Osmolality,Calculated 300 (280-300); Potassium 4.8 mEq/L (3.5-5.1); Sodium 136 mEq/L (136-145); eGFR For African Americans > 60 (> 60); eGFR For Non-African Americans > 60 (> 60)
[2019-03-20] MEDS: Metoprolol XL (24 HR) Succ 25 MG TAB.ER.24H PO SCH (09:29)
[2019-03-20] MEDS: Aspirin Enteric Coated 81 MG Tablet PO SCH (09:29)
[2019-03-20] MEDS: Nicotine 14 MG PATCH.TD24 TD SCH (09:30)
[2019-03-20] MEDS: Diltiazem CD (24hr) 180 MG CAPSULE PO SCH (09:30)
[2019-03-20] MEDS: Insulin LISPRO 300 UNITS/3 ML VIAL SQ SCH ×2 (09:30→12:04)
[2019-03-20] MEDS: hydrOXYzine pamoate 25 MG CAPSULE PO PRN ×2 (09:40→14:38)
[2019-03-20] MEDS: ALPRAZolam 0.25 MG TABLET PO PRN ×2 (09:40→14:38)
[2019-03-20] MEDS: Tiotropium 18 MCG inhalation IH SCH (09:47)
[2019-03-20] MEDS: Budesonide/Formoterol 160/4.5 1 PUFF INH IH SCH (09:47)
[2019-03-20] MEDS: Silvasorb 44.4 ML TUBE TP SCH (09:51)
[2019-03-20 11:23] VITALS: BP 123/73
[2019-03-20] MEDS: Insulin DETEMIR 100 UNIT/ML X5UNITS SQ SCH (12:04)
== END 2019-03-20 16:49 | DRG 281 ==
LOC: 2ANU → SUATTDRO 03-13 12:39
PROVIDERS: ADMIT Internal Medicine; ATTEND Pharmacist

== ENCOUNTER 2019-04-07 18:43 | Inpatient (IN) ==
[2019-04-07] MEDS ORDERED: Cyanocobalamin (B-12) 1,000 MCG/ML VIAL SQ ONE (23:37)
[2019-04-07] MEDS ORDERED: Naloxone 0.4 MG/ML INJ IVP PRN (23:53)
[2019-04-07] MEDS ORDERED: Albuterol 2.5 MG/3 ML NEBULIZER IH PRN (23:53)
[2019-04-08] MEDS ORDERED: Ipratropium/Albuterol Neb 3 ML ONE (00:23)
[2019-04-08] MEDS: Pantoprazole 40 MG VIAL IVP SCH ×3 (00:24→16:18)
[2019-04-08] MEDS: Ipratropium/Albuterol Neb 3 ML IH SCH ×5 (00:25→21:53)
[2019-04-08] MEDS ORDERED: Calcium Gluconate 1gm/50mL 1 GM/50 ML BAG IVPB ONE (00:30)
[2019-04-08] MEDS: Insulin DETEMIR 100 UNIT/ML X5UNITS SQ SCH ×3 (00:33→21:04)
[2019-04-08] MEDS: Apixaban 5 MG TABLET PO SCH ×3 (00:34→21:04)
[2019-04-08] MEDS: Furosemide 40 MG/4 ML VIAL IVP SCH ×3 (00:47→16:17)
[2019-04-08 01:36] LABS: Basophils % 0.2 %; Hematocrit 31.7 % (37.5-50.1); Hemoglobin 9.5 g/dL (12.9-16.9); Immature Granulocytes % 3.4 % (0-4); Immature Reticulocyte % 16.9 % (11.0-38.0); Lymphocytes # 0.3 K/mcL (0.6-4.6); Lymphocytes % 1.9 %; Mean Corpuscular Volume 93.5 fL (83.0-100.0); Mean Platelet Volume 9.8 fL (9.4-12.4); Monocytes # 0.2 K/mcL (0.0-1.3); Monocytes % 1.3 %; Neutrophils # 12.5 K/mcL (1.6-8.9); Platelet Count 242 K/mcL (140-400); Red Blood Count 3.39 M/mcL (4.19-5.50); Segmented Neutrophils % 93.2 %; White Blood Count 13.4 K/mcL (4.3-11.1)
[2019-04-08 01:38] LABS: INR 1.4; Prothrombin Time 16.1 Seconds (9.4-12.1)
[2019-04-08 02:07] LABS: Alanine Aminotransferase 16 Units/L (7-52); Albumin 3.3 g/dL (3.5-5.7); Albumin/Globulin Ratio 1.6 (1.1-2.2); Alkaline Phosphatase 64 Units/L (34-104); Aspartate Amino Transferase 12 Units/L (13-39); BUN/Creatinine Ratio 60 (6-26); Bilirubin,Total 0.7 mg/dL (0.3-1.0); Blood Urea Nitrogen 45 mg/dL (8-23); Calcium 8.3 mg/dL (8.6-10.3); Carbon Dioxide 44 mEq/L (23-29); Chloride 92 mEq/L (98-107); Chol/HDL Ratio 1.8 (0-4.9); Cholesterol 120 mg/dL (< 200); Globulin 2.1 g/dL (2.4-3.5); Glucose 326 mg/dL (70-105); HDL Cholesterol 68 mg/dL (40-59); LDL Cholesterol,Calculated 43 mg/dL (0-99); Magnesium 1.9 mg/dL (1.6-2.6); Osmolality,Calculated 308 (280-300); Phosphorous 3.6 mg/dL (2.7-4.5); Potassium 5.6 mEq/L (3.5-5.1); Sodium 137 mEq/L (136-145); Total Protein 5.4 g/dL (6.4-8.9); Triglycerides 45 mg/dL (< 150); eGFR For African Americans > 60 (> 60); eGFR For Non-African Americans > 60 (> 60)
[2019-04-08 02:19] LABS: Thyroid Stimulating Hormone 0.987 mcIU/mL (0.340-5.600)
[2019-04-08 02:27] LABS: Bilirubin,Urine Negative (Negative); Blood,Urine Large (Negative); Clarity,Urine Clear (Clear); Color,Urine Yellow (Yellow); Glucose,Urine (UA) 250 mg/dL (Normal); Ketones,Urine Negative (Negative); Leukocyte Esterase,Urine Negative (Negative); Nitrite,Urine Negative (Negative); Protein,Urine Negative (Neg-Trace); Specific Gravity,Urine 1.014 (1.010-1.025); Urobilinogen,Urine Normal (Normal)
[2019-04-08 02:33] LABS: Bacteria,Urine None Seen per hpf (None-Few); Hyaline Casts,Urine None Seen per lpf (None-Few); RBC,Urine 50-100 per hpf (0-3); Squamous Epithelial Cell,Urine Few per lpf (None-Few); WBC,Urine 0-3 per hpf (0-3)
[2019-04-08] MEDS: Aspirin Enteric Coated 81 MG Tablet PO SCH (08:29)
[2019-04-08] MEDS: levoFLOXacin 500 MG/100 ML 500 MG/100 ML BAG IVPB SCH (08:30)
[2019-04-08] MEDS: Diltiazem CD (24hr) 180 MG CAPSULE PO SCH (08:30)
[2019-04-08] MEDS ORDERED: predniSONE 20 MG TABLET PO SCH (09:00)
[2019-04-08] MEDS: MethylPREDNISolone 40 MG/ML VIAL IVP SCH (16:18)
[2019-04-08 17:28] LABS: Troponin I 0.03 ng/mL (< 0.04)
[2019-04-08 17:35] LABS: Adenovirus Not Detected (Not Detect); Bordetella Pertussis Not Detected (Not Detect); Chlamydophila pneumoniae Not Detected (Not Detect); Coronavirus 229E Not Detected (Not Detect); Coronavirus HKU1 Not Detected (Not Detect); Coronavirus NL63 Not Detected (Not Detect); Coronavirus OC43 Not Detected (Not Detect); Human Metapneumovirus Not Detected (Not Detect); Human Rhinovirus/Enterovirus Not Detected (Not Detect); Influenza A Subtype 2009 H1 Not Detected (Not Detect); Influenza B Not Detected (Not Detect); Parainfluenza Virus 1 Not Detected (Not Detect); Parainfluenza Virus 2 Not Detected (Not Detect); Parainfluenza Virus 3 Not Detected (Not Detect); Parainfluenza Virus 4 Not Detected (Not Detect); Respiratory Syncytial Virus Not Detected (Not Detect)
[2019-04-08 17:36] LABS: Mycoplasma pneumoniae Not Detected (Not Detect)
[2019-04-08] MEDS ORDERED: *HR* LORazepam 0.5 MG TABLET PO ONE (17:50)
[2019-04-08 18:05] LABS: BUN/Creatinine Ratio 55 (6-26); Blood Urea Nitrogen 41 mg/dL (8-23); Calcium 8.6 mg/dL (8.6-10.3); Carbon Dioxide 43 mEq/L (23-29); Chloride 86 mEq/L (98-107); Glucose 201 mg/dL (70-105); Osmolality,Calculated 300 (280-300); Potassium 4.7 mEq/L (3.5-5.1); Sodium 137 mEq/L (136-145); eGFR For African Americans > 60 (> 60); eGFR For Non-African Americans > 60 (> 60)
[2019-04-09] MEDS ORDERED: *HR* LORazepam 2 MG/ML VIAL IVP ONE (02:22)
[2019-04-09] MEDS: Ipratropium/Albuterol Neb 3 ML IH SCH ×4 (04:54→22:59)
[2019-04-09] MEDS: Pantoprazole 40 MG VIAL IVP SCH (05:54)
[2019-04-09] MEDS: MethylPREDNISolone 40 MG/ML VIAL IVP SCH ×2 (05:54→18:22)
[2019-04-09] MEDS: levoFLOXacin 500 MG/100 ML 500 MG/100 ML BAG IVPB SCH (09:51)
[2019-04-09] MEDS: Diltiazem CD (24hr) 180 MG CAPSULE PO SCH (09:51)
[2019-04-09] MEDS: Apixaban 5 MG TABLET PO SCH ×2 (09:51→21:54)
[2019-04-09] MEDS: Aspirin Enteric Coated 81 MG Tablet PO SCH (09:51)
[2019-04-09] MEDS: Insulin DETEMIR 100 UNIT/ML X5UNITS SQ SCH ×2 (09:52→21:54)
[2019-04-09 11:35] LABS: Immature Granulocytes % 0.9 % (0-4); Lymphocytes % 0.8 %; Monocytes % 3.5 %
[2019-04-09 11:37] LABS: Basophils # 0.1 K/mcL (0.0-0.2); Basophils % 0.2 %; Hematocrit 32.4 % (37.5-50.1); Hemoglobin 9.6 g/dL (12.9-16.9); Lymphocytes # 0.2 K/mcL (0.6-4.6); Mean Corpuscular HGB Conc 29.6 g/dL (31.6-35.5); Mean Corpuscular Hemoglobin 27.7 pg (28.0-33.3); Mean Corpuscular Volume 93.6 fL (83.0-100.0); Mean Platelet Volume 9.3 fL (9.4-12.4); Neutrophils # 27.1 K/mcL (1.6-8.9); Platelet Count 219 K/mcL (140-400); Red Blood Count 3.46 M/mcL (4.19-5.50); Red Cell Distribution Width 15.1 % (11.5-14.5); Segmented Neutrophils % 94.6 %; White Blood Count 28.6 K/mcL (4.3-11.1)
[2019-04-09 11:38] LABS: Platelet Estimate Normal (Normal)
[2019-04-09 12:05] LABS: BUN/Creatinine Ratio 49 (6-26); Blood Urea Nitrogen 33 mg/dL (8-23); Calcium 8.2 mg/dL (8.6-10.3); Carbon Dioxide > 45 mEq/L (23-29); Chloride 87 mEq/L (98-107); Glucose 145 mg/dL (70-105); Osmolality,Calculated 294 (280-300); Potassium 4.4 mEq/L (3.5-5.1); Sodium 137 mEq/L (136-145); eGFR For African Americans > 60 (> 60); eGFR For Non-African Americans > 60 (> 60)
[2019-04-09] MEDS: Furosemide 40 MG/4 ML VIAL IVP SCH ×2 (12:58→18:22)
[2019-04-09] MEDS ORDERED: Lactulose Oral Soln 20 GM/30 ML UDC PO PRN (13:59)
[2019-04-09] MEDS ORDERED: Haloperidol Lactate 5 MG/ML VIAL IVP PRN (17:53)
[2019-04-09] MEDS: Metoprolol XL (24 HR) Succ 25 MG TAB.ER.24H PO SCH (18:22)
[2019-04-09] MEDS ORDERED: *HR* Dextrose 50 % in Water (Syg) 50 ML SYRINGE IVP PRN (22:20)
[2019-04-09] MEDS ORDERED: Dextrose Gel 15 GM/37.5 ML TUBE PO PRN ×2 (22:20)
[2019-04-09] MEDS ORDERED: D5% in Water 1,000 ML IVC PRN (22:20)
[2019-04-09] MEDS: Budesonide/Formoterol 160/4.5 1 PUFF INH IH SCH (22:59)
[2019-04-09] MEDS: Insulin LISPRO 300 UNITS/3 ML VIAL SQ SCH (23:44)
[2019-04-09] MEDS: Melatonin 3 MG TABLET PO PRN (23:45)
[2019-04-10] MEDS ORDERED: *HR* LORazepam 2 MG/ML VIAL IVP ONE (02:08)
[2019-04-10] MEDS: Ipratropium/Albuterol Neb 3 ML IH SCH ×4 (04:05→23:15)
[2019-04-10] MEDS: MethylPREDNISolone 40 MG/ML VIAL IVP SCH ×2 (05:49→16:57)
[2019-04-10 06:07] LABS: Basophils % 0.1 %; Hematocrit 27.3 % (37.5-50.1); Hemoglobin 8.6 g/dL (12.9-16.9); Immature Granulocytes % 0.9 % (0-4); Lymphocytes # 0.3 K/mcL (0.6-4.6); Mean Corpuscular HGB Conc 31.5 g/dL (31.6-35.5); Mean Corpuscular Hemoglobin 28.5 pg (28.0-33.3); Mean Corpuscular Volume 90.4 fL (83.0-100.0); Mean Platelet Volume 9.8 fL (9.4-12.4); Monocytes # 0.5 K/mcL (0.0-1.3); Neutrophils # 11.9 K/mcL (1.6-8.9); Platelet Count 200 K/mcL (140-400); Red Blood Count 3.02 M/mcL (4.19-5.50); Red Cell Distribution Width 15.2 % (11.5-14.5)
[2019-04-10 06:10] LABS: White Blood Count 12.8 K/mcL (4.3-11.1)
[2019-04-10 06:28] LABS: BUN/Creatinine Ratio 53 (6-26); Blood Urea Nitrogen 37 mg/dL (8-23); Calcium 8.3 mg/dL (8.6-10.3); Carbon Dioxide > 45 mEq/L (23-29); Chloride 86 mEq/L (98-107); Glucose 188 mg/dL (70-105); Osmolality,Calculated 304 (280-300); Sodium 140 mEq/L (136-145); eGFR For African Americans > 60 (> 60); eGFR For Non-African Americans > 60 (> 60)
[2019-04-10] MEDS: Diltiazem CD (24hr) 180 MG CAPSULE PO SCH (08:23)
[2019-04-10] MEDS: Metoprolol XL (24 HR) Succ 25 MG TAB.ER.24H PO SCH (08:23)
[2019-04-10] MEDS: Aspirin Enteric Coated 81 MG Tablet PO SCH (08:23)
[2019-04-10] MEDS: Nicotine 14 MG PATCH.TD24 TD SCH ×2 (08:24→08:44)
[2019-04-10] MEDS: Apixaban 5 MG TABLET PO SCH ×2 (08:24→21:14)
[2019-04-10] MEDS: Insulin DETEMIR 100 UNIT/ML X5UNITS SQ SCH ×2 (08:24→21:17)
[2019-04-10] MEDS: Furosemide 40 MG/4 ML VIAL IVP SCH ×2 (08:24→16:57)
[2019-04-10] MEDS: Insulin LISPRO 300 UNITS/3 ML VIAL SQ SCH ×4 (08:25→21:15)
[2019-04-10] MEDS: levoFLOXacin 500 MG/100 ML 500 MG/100 ML BAG IVPB SCH (08:26)
[2019-04-10] MEDS: Budesonide/Formoterol 160/4.5 1 PUFF INH IH SCH ×2 (10:32→23:15)
[2019-04-10] MEDS ORDERED: Insulin DETEMIR 100 UNIT/ML X5UNITS SQ ONE (16:01)
[2019-04-10] MEDS: Melatonin 3 MG TABLET PO PRN (21:14)
[2019-04-10] MEDS: Morphine Sulfate Oral CONC 10 MG/0.5 ML ORAL.SYG SL PRN (21:14)
[2019-04-11] MEDS: Ipratropium/Albuterol Neb 3 ML IH SCH ×4 (04:16→23:08)
[2019-04-11] MEDS: MethylPREDNISolone 40 MG/ML VIAL IVP SCH ×2 (06:03→17:06)
[2019-04-11] MEDS: levoFLOXacin 500 MG/100 ML 500 MG/100 ML BAG IVPB SCH (08:26)
[2019-04-11] MEDS: Diltiazem CD (24hr) 180 MG CAPSULE PO SCH (08:26)
[2019-04-11] MEDS: Aspirin Enteric Coated 81 MG Tablet PO SCH (08:26)
[2019-04-11] MEDS: Metoprolol XL (24 HR) Succ 25 MG TAB.ER.24H PO SCH (08:26)
[2019-04-11] MEDS: Furosemide 40 MG/4 ML VIAL IVP SCH ×2 (08:30→17:06)
[2019-04-11] MEDS: Insulin LISPRO 300 UNITS/3 ML VIAL SQ SCH ×4 (08:31→21:40)
[2019-04-11] MEDS: Nicotine 14 MG PATCH.TD24 TD SCH (08:33)
[2019-04-11] MEDS: Apixaban 5 MG TABLET PO SCH ×2 (08:35→21:38)
[2019-04-11] MEDS: Insulin DETEMIR 100 UNIT/ML X5UNITS SQ SCH ×2 (08:35→21:39)
[2019-04-11] MEDS: Morphine Sulfate Oral CONC 10 MG/0.5 ML ORAL.SYG SL PRN (09:24)
[2019-04-11] MEDS: Budesonide/Formoterol 160/4.5 1 PUFF INH IH SCH ×2 (10:35→23:07)
[2019-04-11 11:21] LABS: Hematocrit 29.3 % (37.5-50.1); Hemoglobin 9.2 g/dL (12.9-16.9)
[2019-04-11] MEDS ORDERED: *HR* Metoprolol 5 MG/5 ML VIAL IVP ONE (12:24)
[2019-04-11] MEDS: Haloperidol Lactate 5 MG/ML VIAL IVP PRN (18:19)
[2019-04-11] MEDS ORDERED: Haloperidol Lactate 5 MG/ML VIAL IVP ONE (21:05)
[2019-04-12] MEDS: Ipratropium/Albuterol Neb 3 ML IH SCH ×2 (04:06→10:12)
[2019-04-12 06:21] LABS: Basophils % 0.1 %; Hemoglobin 9.1 g/dL (12.9-16.9); Immature Granulocytes % 1.1 % (0-4); Lymphocytes # 0.2 K/mcL (0.6-4.6); Lymphocytes % 1.8 %; Mean Corpuscular HGB Conc 31.4 g/dL (31.6-35.5); Mean Corpuscular Hemoglobin 28.1 pg (28.0-33.3); Mean Corpuscular Volume 89.5 fL (83.0-100.0); Mean Platelet Volume 10.1 fL (9.4-12.4); Monocytes # 0.5 K/mcL (0.0-1.3); Monocytes % 4.9 %; Neutrophils # 9.6 K/mcL (1.6-8.9); Nucleated Red Blood Cells 0.2 /100 WBC (0); Platelet Count 178 K/mcL (140-400); Red Blood Count 3.24 M/mcL (4.19-5.50); Red Cell Distribution Width 15.3 % (11.5-14.5); Segmented Neutrophils % 92.1 %; White Blood Count 10.4 K/mcL (4.3-11.1)
[2019-04-12] MEDS: MethylPREDNISolone 40 MG/ML VIAL IVP SCH (06:31)
[2019-04-12 06:47] LABS: BUN/Creatinine Ratio 46 (6-26); Blood Urea Nitrogen 42 mg/dL (8-23); Calcium 8.4 mg/dL (8.6-10.3); Carbon Dioxide > 45 mEq/L (23-29); Chloride 86 mEq/L (98-107); Glucose 334 mg/dL (70-105); Osmolality,Calculated 316 (280-300); Potassium 3.8 mEq/L (3.5-5.1); Sodium 141 mEq/L (136-145); eGFR For African Americans > 60 (> 60); eGFR For Non-African Americans > 60 (> 60)
[2019-04-12 06:57] LABS: Platelet Estimate Normal (Normal)
[2019-04-12] MEDS ORDERED: Furosemide 40 MG TABLET PO SCH (08:00)
[2019-04-12] MEDS ORDERED: levoFLOXacin 500 MG TABLET PO SCH (09:00)
[2019-04-12] MEDS: Metoprolol XL (24 HR) Succ 25 MG TAB.ER.24H PO SCH (09:14)
[2019-04-12] MEDS: Diltiazem CD (24hr) 180 MG CAPSULE PO SCH (09:14)
[2019-04-12] MEDS: Apixaban 5 MG TABLET PO SCH (09:14)
[2019-04-12] MEDS: Aspirin Enteric Coated 81 MG Tablet PO SCH (09:14)
[2019-04-12] MEDS: Insulin LISPRO 300 UNITS/3 ML VIAL SQ SCH ×2 (09:15→12:44)
[2019-04-12] MEDS: Nicotine 14 MG PATCH.TD24 TD SCH (09:15)
[2019-04-12] MEDS: Insulin DETEMIR 100 UNIT/ML X5UNITS SQ SCH (09:17)
[2019-04-12] MEDS: Morphine Sulfate Oral CONC 10 MG/0.5 ML ORAL.SYG SL PRN (09:20)
[2019-04-12] MEDS: Budesonide/Formoterol 160/4.5 1 PUFF INH IH SCH (10:12)
[2019-04-12] MEDS: Haloperidol Lactate 5 MG/ML VIAL IVP PRN (11:49)
[2019-04-12] MEDS ORDERED: *HR* LORazepam 2 MG/ML VIAL IVP PRN (12:20)
[2019-04-12 13:00] VITALS: BP 108/64
== END 2019-04-12 15:26 | disposition hospice, home (50) | DRG 291 ==
LOC: 2NNU 22:33 → SUATTDRO 22:33 → INTOOBSV 22:33 → SUATTDRO 04-09 10:41 → 2ANU 04-11 13:41
PROVIDERS: ADMIT Internal Medicine; ATTEND Family Medicine